=== PATIENT | male | born 1960 | race Caucasian/White ===

== ENCOUNTER → 2024-09-10 | Outpatient (CLI) | payer MEDICARE, MEDICAID, SELFPAY ==
[2024-09-10 12:29] LABS: Basophils % (Auto) 1 % (0-2.5); Eosinophils # (Auto) 0.3 Thou/mm3 (0.0-0.5); Eosinophils % (Auto) 14 % (0-10); Hematocrit 21.1 % (41.0-53.0); Immature Granulocytes % (Auto) 1 % (0-0); Immature Granulocytes Auto 0.02 Thou/mm3 (0.00-0.00); Lymphocytes # (Auto) 0.5 Thou/mm3 (1.0-4.8); Lymphocytes % (Auto) 23 % (10-50); Mean Corpuscular HGB Conc 31.3 g/dl (31.0-37.0); Mean Corpuscular Hemoglobin 30.8 pg (25.0-35.0); Mean Corpuscular Volume 99 fL (80-100); Monocytes # (Auto) 0.2 Thou/mm3 (0.0-0.8); Monocytes % (Auto) 11 % (0-12); Neutrophils % (Auto) 51 % (37-80); Nucleated Red Blood Cell % 0 /100 WBC (0); RDW Standard Deviation 82.3 fL (35.1-43.9); Red Blood Count 2.14 Miln/mm3 (4.50-5.90)
[2024-09-10 12:30] LABS: Hemoglobin 6.6 g/dL (13.5-16.0); Platelet Count 56 Thou/mm3 (140-440)
[2024-09-10 12:31] LABS: INR 1.5 (0.9-1.3); Prothrombin Time 15.7 Seconds (9.0-12.2)
[2024-09-10 12:45] LABS: Alanine Aminotransferase 25 U/L (10-49); Albumin, Serum 3.1 gm/dL (3.4-4.8); Albumin/Globulin Ratio 1.2 (1.2-2.2); Alkaline Phosphatase 82 U/L (46-116); Anion Gap 8 (7-16); Aspartate Amino Transferase 45 U/L (0-34); BUN/Creatinine Ratio 19 Ratio (12-20); Bilirubin,Total 3.2 mg/dL (0.3-1.2); Blood Urea Nitrogen 27 mg/dL (9-23); Calcium (Corrected) 9.7 mg/dL (8.5-10.1); Carbon Dioxide 26.1 mMol/L (20.0-31.0); Chloride 101 mMol/L (98-107); Creatinine (Component) 1.4 mg/dL (0.6-1.3); Globulin 2.5 gm/dL (2.3-3.5); Glucose 102 mg/dL (74-106); Osmolality,Calculated 275 (275-295); Potassium 3.7 mMol/L (3.4-5.1); Sodium 135 mMol/L (136-145); Total Protein 5.6 gm/dL (5.7-8.2); eGFR 56 See Note
[2024-09-10 13:02] LABS: Slide Review Platelets confirmed
== END | disposition home or self-care (01) ==
LOC: COPL 11:17
PROVIDERS: PCP Specialist; Referring Provider Specialist; Visit Provider Specialist
DX: Z01.89 Encounter for other specified special examinations (principal)
CPT/HCPCS: 36415; 80053; 85025; 85610

== ENCOUNTER 2024-09-24 10:00 | Emergency (ER) | payer MEDICARE, MEDICAID, SELFPAY ==
[2024-09-24] VITALS (53 sets, daily range): BP systolic 82–113; BP diastolic 32–72; PULSE 68–95; RESP 7–33; TEMP 36.6–36.7; O2SAT 85–100; BMI 24.7
--- NOTE | 2024-09-24 10:51 | PD.EDADULT ---
ED General RME/HPI General Chief complaint: Weakness Stated complaint: WEAKNESS Time Seen by Provider: 09/24/24 10:43 Arrival date/time: 09/24/24 10:00 RME / HPI RME / HPI narrative: This section includes all my notes and documentations, including HPI, PE, MDM, Procedure Notes, and PLAN. Manuel Dawn MD HPI: 63 year old male with history of AFib, ESLD, on transplant list at [facility], ascites, esophageal varices s/p banding, GIB, hyperlipidemia presents to the ED BIBA from home for multiple complaints. Reports last night while walking to his bedroom, he scraped his toes on the carpet and caused him to fall forward, hitting his head on the wall. Denied LOC. Patient additionally reported he has had black bowel movements since last night and has history of GI bleeds. Denies fevers, chills, sweats, chest pain, cough, shortness of breath, abdominal pain, n/v/d, or urinary symptoms. Denies use of blood thinners. No other complaints reported. ROS: Respiratory: negative except as documented in HPI. Gastrointestinal: negative except as documented in HPI. Genitourinary: negative except as documented in HPI. Musculoskeletal: negative except as documented in HPI. Skin: negative except as documented in HPI. Neurological: negative except as documented in HPI. Physical Exam: General: Alert and oriented. No acute distress. Eyes: Conjunctivae and lids clear. EOMI. PERRL. ENT: No nasal congestion. Pharynx normal. Tympanic membrane normal bilaterally. Neck: Supple. No lymphadenopathy. No JVD. Heart: RRR. Lungs: No respiratory distress. Good air movement. No rhonchi, wheezing, rales. Chest: No tenderness. Abdomen: Soft and nontender. Normal bowel sounds. No distension. No rebound or guarding. Rectal: Exam performed in presence of RN, stool is guaiac positve Back: No CVA tenderness. Legs: No clubbing, cyanosis, edema. Skin: Warm and dry. Neuro: Alert and oriented X 3. Cranial Nerves II-XII grossly intact. No peripheral motor deficits. Musculoskeletal: All major joints and bones are not tender with no limited ROM. I reviewed all diagnostic test results. At 6 PM on 09/24/2024, the care of the patient was transferred to Dr. Riley. Manuel Dawn MD Related Data Home Medications ?Medication ?Instructions ?Recorded ?Confirmed lactulose 20 gram/30 mL oral 30 g PO BID 06/13/24 08/28/24 solution pantoprazole 40 mg tablet,delayed 40 mg PO BID 06/13/24 08/28/24 release propranolol 10 mg tablet 10 mg PO TID 06/13/24 08/28/24 rifaximin 550 mg tablet (Xifaxan) 550 mg PO BID 06/13/24 08/28/24 Previous Rx's ?Medication ?Instructions ?Recorded bumetanide 1 mg tablet 2 mg (2 x 1 mg) PO BID 1 month 09/02/24 #120 tabs midodrine 5 mg tablet 10 mg (2 x 5 mg) PO TID 1 month 09/02/24 #180 tabs spironolactone 25 mg tablet 25 mg PO BID 1 month #240 tabs 09/02/24 Allergies Allergy/AdvReac Type Severity Reaction Status Date / Time aspirin Allergy Severe GI bleed Verified 09/24/24 11:32 Review of Systems Review of Systems Systems Reviewed: All systems reviewed, normal except as documented Past Medical History Past Medical History CARDIAC: Positive Cardiac Disorders, Atrial Fibrillation, Heart Murmur, Edema, Cellulitis and Hypertension GASTROINTESTINAL: Positive Gastrointestinal Disorders, Cirrhosis, Gastrointestinal Bleed, Esophageal Varices, Obstructive Bowel and Gastroesophageal Reflux Disease MUSCULOSKELETAL: Positive Fractures HEMATOLOGIC: Positive Blood Disorders and Anemia OTHER HISTORY: Positive Hospitalization, Falls, Blood Transfusions, Chicken Pox, Measles and Mumps Family History FAMILY HISTORY: Positive Family Cancer Surgical History SURGICAL: Negative Abdominal Surgery Social History SMOKING STATUS: Never smoker SECOND HAND EXPOSURE: No SUBSTANCE USE: does not use ED Exam Narrative Physical exam: As noted in HPI Course Course Course Narrative: 1554: I spoke with transfer nurse and aware of plan to transfer for TIPS procedure. 1800: Patient signed out to Dr. Riley pending transfer. Quality Measures none Orders Category Date Time Status Blood Sugar Check-Sandostatin Q1HR Care 09/24/24 21:03 Completed COVID-19 Screening Questionnaire NOW Care 09/24/24 13:31 Completed Decision to Admit X1 Care 09/24/24 13:31 Completed Transfuse,blood/blood products NOW Care 09/24/24 12:46 Completed Consult to Gastroenterology Stat Cons 09/24/24 13:27 Ordered Referral - Long Term Care Pharmacist Stat Cons 09/24/24 15:55 Active US liver Stat Exams 09/24/24 20:03 Completed Amylase Stat Lab 09/24/24 11:30 Completed CBC Stat Lab 09/24/24 11:30 Completed CMP [Comprehensive Metabolic Panel] Stat Lab 09/24/24 11:30 Completed Hemoglobin and Hematocrit Stat Lab 09/25/24 01:22 Completed Lipase Stat Lab 09/24/24 11:30 Completed Magnesium Stat Lab 09/24/24 11:30 Completed Occult Blood, Stool (LAB) Stat Lab 09/24/24 10:55 Completed PT [Prothrombin Time with INR] Stat Lab 09/24/24 11:30 Completed PTT [Partial Thromboplastin Time] Stat Lab 09/24/24 11:30 Completed Type and Screen Stat Lab 09/24/24 12:55 Completed prbc [Red Blood Cells] Stat Lab 09/24/24 12:55 Completed Morphine Inj Med 09/25/24 07:40 Discontinued 4 mg IVP X1 ONE Octreotide Acet Inj [SandoSTATIN Inj] Med 09/24/24 13:28 Discontinued 50 mcg IV X1 ONE Sodium Chloride 0.9% [Ns] 100 ml Med 09/24/24 20:15 Discontinued Octreotide Acet Inj [SandoSTATIN Inj] 1,000 mcg IV 50 mcg/hr Sodium Chloride 0.9% [Ns] 100 ml Med 09/25/24 16:15 Discontinued Octreotide Acet Inj [SandoSTATIN Inj] 1,000 mcg IV 50 mcg/hr Vital Signs Vital signs: Vital Signs Temperature 97.9 F 09/24/24 10:25 Pulse Rate 95 09/24/24 10:25 Respiratory Rate 11 L 09/24/24 10:25 Blood Pressure 85/49 L 09/24/24 10:25 Pulse Oximetry (%) 100 09/24/24 10:25 Oxygen Delivery Method Room Air 09/24/24 10:25 Pulse ox is 100% on room air which is adequate. [facility] Patient data External records reviewed:: [facility] previous records (I reviewed admission from 08/28/2024 through 09/03/2024 for anasarca and anemia ) and EMS form Clinical information provided by:: patient and EMS Social determinants that could affect healthcare access:: alcohol use (Former alcohol abuse) Patient has the following chronic illnesses:: AFib, ESLD, on transplant list at [facility], ascites, esophageal varices s/p banding, GIB, hyperlipidemia How is presenting disease/condition affected by chronic disease/condition?: exacerbated by Evaluation data The following diagnostics were reviewed and interpreted by me:: lab results Lab and/or radiology exams considered but not ordered:: None Interpretation Summary: H/H 4.0/13.0, history of chronic anemia Medications Medications considered but not ordered:: None Medication administrations:: Medication Administration History Discontinued Medications Octreotide Acetate 1,000 mcg/ (Sodium Chloride) 102 mls @ 5.1 mls/hr IV .Q20H LATRICE; Protocol Stop: 09/29/24 20:14 Octreotide Acetate 1,000 mcg/ (Sodium Chloride) 102 mls @ 5.1 mls/hr IV .Q20H ONE; Protocol Stop: 09/25/24 16:14 Last Admin: 09/24/24 20:50 Dose: 50 mcg/hr, 5.1 mls/hr Documented By: EE Morphine Sulfate (Morphine Sulf Inj 10 Mg/Ml Vial) 4 mg IVP X1 ONE Stop: 09/25/24 07:41 Last Admin: 09/25/24 07:46 Dose: 4 mg Documented By: RD Octreotide Acetate (Octreotide Acet Inj 50 Mcg/Ml Vial) 50 mcg IV X1 ONE Stop: 09/24/24 13:29 Last Admin: 09/24/24 15:26 Dose: 50 mcg Documented By: AA See above Consultations Consultation(s) initiated? (list below): Yes Consultation #1 (Physician, Specialty, Details): I spoke with GI Dr. Koch. Discussed patients PMHx, HPI, ED course, exam findings, labs results. He agrees to consult. Time: 13:25 Consultation #2 (Physician, Specialty, Details): I spoke with resident Dr. Chandler working with Dr. Dominguez. Discussed patients PMHx, HPI, ED course, exam findings, labs, and radiology results. States they have spoken to GI Dr. Koch again and he is recommending patient to be transferred for TIPS procedure. Time: 13:31 Diagnosis Differential Diagnosis ED Complaint MDM: Anemia, weakness, GI bleed Most likely diagnosis given after review of the tests above:: Severe anemia Acute GI bleed Admission Indicated Admission indicated?: not indicated Explain why admission is indicated or not indicated:: Requires txfer to TIPS procedure Admission Request Was there a request for admission?: No Disposition Plan Disposition Plan: other (specify) (Signed out to Dr. Riley pending txfer ) Medical Decision Making Differential Diagnosis Differential Diagnosis: Anemia, weakness, GI bleed Lab Data 09/25/24 01:22 09/24/24 11:30 Labs: Lab Results 09/24/24 09/24/24 09/24/24 Range/Units 10:55 11:30 12:55 WBC 2.3 L (3.8-10.6) Thou/mm3 RBC 1.40 L* (4.50-5.90) Miln/mm3 Hgb 4.0 L* (13.5-16.0) g/dL Hct 13.0 L* (41.0-53.0) % MCV 93 (80-100) fL MCH 28.6 (25.0-35.0) pg MCHC 30.8 L (31.0-37.0) g/dl RDW Std Deviation 70.0 H (35.1-43.9) fL Plt Count 54 L (140-440) Thou/mm3 Neut % (Auto) 64 (37-80) % Lymph % (Auto) 20 (10-50) % Irwin % (Auto) 11 (0-12) % Eos % (Auto) 4 (0-10) % Baso % (Auto) 0 (0-2.5) % Neut # (Auto) 1.5 L (1.8-7.7) Thou/mm3 Lymph # (Auto) 0.5 L (1.0-4.8) Thou/mm3 Irwin # (Auto) 0.3 (0.0-0.8) Thou/mm3 Eos # (Auto) 0.1 (0.0-0.5) Thou/mm3 Baso # (Auto) 0.0 (0.0-0.2) Thou/mm3 Immature Gran # (Auto) 0.03 H (0.00-0.00) Thou/mm3 Absolute Nucleated RBC 0.00 (0.00-0.00) Thou/mm3 Immature Gran % 1 H (0-0) % Nucleated RBC % 0 (0) /100 WBC PT 16.3 H (9.0-12.2) Seconds INR 1.5 H (0.9-1.3) APTT 33.2 (22.0-36.0) Seconds Sodium 125 L (136-145) mMol/L Potassium 3.6 (3.4-5.1) mMol/L Chloride 95 L (98-107) mMol/L Carbon Dioxide 23.8 (20.0-31.0) mMol/L Anion Gap 6 L (7-16) BUN 34 H (9-23) mg/dL Creatinine 1.5 H (0.6-1.3) mg/dL Estim Creat Clear Calc 50.7 L (>60) mL/min eGFR 51 L (60 - ) See Note BUN/Creatinine Ratio 23 H (12-20) Ratio Glucose 100 (74-106) mg/dL Calculated Osmolality 259 L (275-295) Calcium 8.1 L (8.3-10.6) mg/dL Corrected Calcium 9.5 (8.5-10.1) mg/dL Magnesium 2.0 (1.6-2.6) mg/dL Total Bilirubin 4.2 H (0.3-1.2) mg/dL AST 18 (0-34) U/L ALT 22 (10-49) U/L Alkaline Phosphatase 71 (46-116) U/L Total Protein 4.5 L (5.7-8.2) gm/dL Albumin 2.3 L (3.4-4.8) gm/dL Globulin 2.2 L (2.3-3.5) gm/dL Albumin/Globulin Ratio 1.0 L (1.2-2.2) Amylase 52 (30-118) U/L Lipase 40 (12-53) U/L Stool Occult Blood Positive A (Negative) Misc Test Result Platelets confirmed Blood Type AB Positive Antibody Screen NEGATIVE Crossmatch See Detail Blood Bank Wristband ID Yes 09/25/24 Range/Units 01:22 WBC (3.8-10.6) Thou/mm3 RBC (4.50-5.90) Miln/mm3 Hgb 7.9 L D (13.5-16.0) g/dL Hct 23.5 L D (41.0-53.0) % MCV (80-100) fL MCH (25.0-35.0) pg MCHC (31.0-37.0) g/dl RDW Std Deviation (35.1-43.9) fL Plt Count (140-440) Thou/mm3 Neut % (Auto) (37-80) % Lymph % (Auto) (10-50) % Irwin % (Auto) (0-12) % Eos % (Auto) (0-10) % Baso % (Auto) (0-2.5) % Neut # (Auto) (1.8-7.7) Thou/mm3 Lymph # (Auto) (1.0-4.8) Thou/mm3 Irwin # (Auto) (0.0-0.8) Thou/mm3 Eos # (Auto) (0.0-0.5) Thou/mm3 Baso # (Auto) (0.0-0.2) Thou/mm3 Immature Gran # (Auto) (0.00-0.00) Thou/mm3 Absolute Nucleated RBC (0.00-0.00) Thou/mm3 Immature Gran % (0-0) % Nucleated RBC % (0) /100 WBC PT (9.0-12.2) Seconds INR (0.9-1.3) APTT (22.0-36.0) Seconds Sodium (136-145) mMol/L Potassium (3.4-5.1) mMol/L Chloride (98-107) mMol/L Carbon Dioxide (20.0-31.0) mMol/L Anion Gap (7-16) BUN (9-23) mg/dL Creatinine (0.6-1.3) mg/dL Estim Creat Clear Calc (>60) mL/min eGFR (60 - ) See Note BUN/Creatinine Ratio (12-20) Ratio Glucose (74-106) mg/dL Calculated Osmolality (275-295) Calcium (8.3-10.6) mg/dL Corrected Calcium (8.5-10.1) mg/dL Magnesium (1.6-2.6) mg/dL Total Bilirubin (0.3-1.2) mg/dL AST (0-34) U/L ALT (10-49) U/L Alkaline Phosphatase (46-116) U/L Total Protein (5.7-8.2) gm/dL Albumin (3.4-4.8) gm/dL Globulin (2.3-3.5) gm/dL Albumin/Globulin Ratio (1.2-2.2) Amylase (30-118) U/L Lipase (12-53) U/L Stool Occult Blood (Negative) [facility] Test Result Blood Type Antibody Screen Crossmatch Blood Bank Wristband ID Discharge Plan Plan [facility] Being Transferred to: Other-Specify in comment Service Needed for Transfer: Gastroenterology Disposition Comment: [facility] Patient condition on transfer: Stable Prescriptions/Referrals Prescriptions/Med Rec: No Action midodrine 5 mg Tablet 10 mg PO TID 30 Days Qty: 180 0RF bumetanide 1 mg Tablet 2 mg PO BID 30 Days Qty: 120 0RF spironolactone 25 mg Tablet 25 mg PO BID 30 Days Qty: 240 0RF propranolol 10 mg Tablet 10 mg PO TID Hold Instructions: Resume on 09/16/24. Hold in the setting of low blood pressure, follow-up outpatient with PCP in 1 to 2 weeks after discharge before restarting the medication pantoprazole 40 mg Tablet,Delayed Release (Dr/Ec) 40 mg PO BID Xifaxan 550 mg Tablet 550 mg PO BID lactulose 20 gram/30 mL Solution 30 g PO BID Referrals: Arlette Koch MD [Primary Care Provider] - In 1 week Problem List Clinical Impression: Severe anemia, Acute GI bleeding Patient/Caregiver Discharge Instructions Print Language: Argentine Stand Alone Forms: Pam Award Info., Patient Portal Info Letter
--- NOTE | 2024-09-24 11:34 | PC.NURSE ---
RN SPOKE WITH JOSELO MCDONALD MOTHER AT [phone]. PER MOTHER, PATIENT HAD A FALL YESTERDAY AND HIT HEAD AND WAS TEMPORARILY DAZED, NEG LOC. PER MOTHER SHE BANDAGED ARMS FOR THE SKIN TEARS THAT OCCURRED DURING THE FALL. PER MOTHER, PATIENT DID NOT WANT TO BE TRANSPORTED TO ED LAST NIGHT, BUT THIS AM AGREED TO DUE TO FEELING WEAK AND HAVING INCREASING DARK STOOLS. PATIENT IS PALE, WARM TO TOUCH, A/O AND C/O WEAKNESS FOR AMBULATION. PATIENT FOLLOWS ALL COMMANDS. CALL LIGHT PLACED WITHIN REACH.
[2024-09-24 11:59] LABS: Basophils % (Auto) 0 % (0-2.5); Eosinophils # (Auto) 0.1 Thou/mm3 (0.0-0.5); Eosinophils % (Auto) 4 % (0-10); Immature Granulocytes % (Auto) 1 % (0-0); Immature Granulocytes Auto 0.03 Thou/mm3 (0.00-0.00); Lymphocytes # (Auto) 0.5 Thou/mm3 (1.0-4.8); Lymphocytes % (Auto) 20 % (10-50); Mean Corpuscular HGB Conc 30.8 g/dl (31.0-37.0); Mean Corpuscular Hemoglobin 28.6 pg (25.0-35.0); Mean Corpuscular Volume 93 fL (80-100); Monocytes # (Auto) 0.3 Thou/mm3 (0.0-0.8); Monocytes % (Auto) 11 % (0-12); Neutrophils # (Auto) 1.5 Thou/mm3 (1.8-7.7); Neutrophils % (Auto) 64 % (37-80); Nucleated Red Blood Cell % 0 /100 WBC (0)
[2024-09-24 12:01] LABS: OBS Card Lot # 23001; OBS Performed By ALMAA; OBS QC OK? Yes; Occult Blood, Stool Positive (Negative)
[2024-09-24 12:02] LABS: OBS Developer Lot # 23003
[2024-09-24 12:18] LABS: Alanine Aminotransferase 22 U/L (10-49); Albumin, Serum 2.3 gm/dL (3.4-4.8); Alkaline Phosphatase 71 U/L (46-116); Amylase 52 U/L (30-118); Anion Gap 6 (7-16); Aspartate Amino Transferase 18 U/L (0-34); BUN/Creatinine Ratio 23 Ratio (12-20); Bilirubin,Total 4.2 mg/dL (0.3-1.2); Blood Urea Nitrogen 34 mg/dL (9-23); Calcium 8.1 mg/dL (8.3-10.6); Calcium (Corrected) 9.5 mg/dL (8.5-10.1); Carbon Dioxide 23.8 mMol/L (20.0-31.0); Chloride 95 mMol/L (98-107); Creatinine (Component) 1.5 mg/dL (0.6-1.3); Estimated Creatinine Clearance 50.7 mL/min (>60); Globulin 2.2 gm/dL (2.3-3.5); Glucose 100 mg/dL (74-106); Lipase 40 U/L (12-53); Osmolality,Calculated 259 (275-295); Potassium 3.6 mMol/L (3.4-5.1); Sodium 125 mMol/L (136-145); Total Protein 4.5 gm/dL (5.7-8.2); eGFR 51 See Note
[2024-09-24 12:27] LABS: INR 1.5 (0.9-1.3); Partial Thromboplastin Time 33.2 Seconds (22.0-36.0); Prothrombin Time 16.3 Seconds (9.0-12.2)
[2024-09-24 12:35] LABS: Platelet Count 54 Thou/mm3 (140-440); White Blood Count 2.3 Thou/mm3 (3.8-10.6)
--- NOTE | 2024-09-24 14:38 | ESCONSULT_ITS ---
<Statement entered by Viktor Dominguez MD - 09/25/24 17:39> Attending attestation: I reviewed above note and agree with findings and plans. I have also personally examined the patient with medicine team and went over assessment and plan with medical team including international trade manager and resident physician. HPI Data of Consult Primary Care Provider: Arlette Koch MD Consult Narrative Reason for consult: GI Bleed History of present illness: Mr. Isaac is a 63-year-old male with past medical history significant for end- stage stage liver disease, liver cirrhosis with ascites s/p TIPS, esophageal varices status post banding, A-fib, hyperlipidemia and history of hepatic encephalopathy presents to the [facility] ED after several episodes of melena since yesterday. Patient states that he is been having loose clumpy dark-colored diarrhea that resembles blood clots. Patient states that he has had previous episodes of melena for which he has received frequent blood transfusions but this time it differs because it is clumpy. Patient denies shortness of breath, chest pain abdominal pain dizziness syncopal episodes nausea or vomiting. Primary medicine team was consulted for inpatient management, admitted after evaluation of the patient and speaking to GI specialist Dr. Koch, decision was made for the patient to be transferred for TIPS procedure. cc:: cc: Exam Vital Signs Temp Pulse Resp BP Pulse Ox O2 Del Method 97.9 F 82 16 88/32 L 100 Room Air 09/24/24 14:34 09/24/24 14:34 09/24/24 14:34 09/24/24 14:34 09/24/24 14:34 09/24/24 14:34 Results Labs 09/24/24 11:30 09/24/24 11:30 Labs: Short CBC 09/24/24 Range/Units 11:30 WBC 2.3 L (3.8-10.6) Thou/mm3 Hgb 4.0 L* (13.5-16.0) g/dL Hct 13.0 L* (41.0-53.0) % Plt Count 54 L (140-440) Thou/mm3 BMP 09/24/24 11:30 Sodium 125 L Potassium 3.6 Chloride 95 L Carbon Dioxide 23.8 BUN 34 H Creatinine 1.5 H Glucose 100 Calcium 8.1 L Liver Function 09/24/24 Range/Units 11:30 Total Bilirubin 4.2 H (0.3-1.2) mg/dL AST 18 (0-34) U/L ALT 22 (10-49) U/L Alkaline Phosphatase 71 (46-116) U/L Albumin 2.3 L (3.4-4.8) gm/dL Quality Measures Quality Measures none Advance care planning discussed with:: patient Medications Home Medications and Allergies Home Medications ?Medication ?Instructions ?Recorded ?Confirmed ?Type lactulose 20 gram/30 mL oral 30 g PO BID 06/13/24 08/28/24 History solution pantoprazole 40 mg tablet,delayed 40 mg PO BID 06/13/24 08/28/24 History release propranolol 10 mg tablet 10 mg PO TID 06/13/24 08/28/24 History rifaximin 550 mg tablet (Xifaxan) 550 mg PO BID 06/13/24 08/28/24 History Allergies Allergy/AdvReac Type Severity Reaction Status Date / Time aspirin Allergy Severe GI bleed Verified 09/24/24 11:32 Visit Medications Octreotide Acetate 1,000 mcg/ (Sodium Chloride) 102 mls @ 5.1 mls/hr IV .Q20H LATRICE; Protocol Stop: 10/25/24 09:44 Octreotide Acetate 1,000 mcg/ (Sodium Chloride) 102 mls @ 5.1 mls/hr IV .Q20H ONE; Protocol Stop: 09/25/24 09:44 Discontinued Medications Octreotide Acetate (Octreotide Acet Inj 50 Mcg/Ml Vial) 50 mcg IV X1 ONE Stop: 09/24/24 13:29 Assessment & Plan Plan Acute on chronic Anemia secondary to GI bleed- likely upper -Patient had several episodes of dark-colored clumpy diarrhea since yesterday -Hemoglobin 4.0, hematocrit 13, platelet 54 -Consulted GI specialist Dr. Koch-recommend patient to be transferred for TIPS procedure
[2024-09-24] MEDS: OCTREOTIDE ACET INJ 50 mCg/ML VIAL IV (15:26)
--- NOTE | 2024-09-24 15:44 | PC.CC ---
Patient is a 63 year-old male that presents to the hospital for weakness. Natividad RUGGIERO made face to face contact with patient. ASW introduced self, role, and reason for visit. Patient appears to be alert and oriented to self, location, and situation. Patient was pleasant and engaged in assessment. Patient confirmed information and reports he lives at home with his parents. Patient reports they are each others support system. Per patient, prior to this admission patient was able to ambulate independently and complete ADLs. Patient stated he does not use any DME currently but has a walker and cane at home should he need it upon discharge. Patient receives primary care with Dr. Koch and Jonny bills [place] for prescription medication. Upon discharge patient plans to return back home with his parents. career placement services counselor to remain available for any discharge needs.
[2024-09-24 17:12] LABS: Slide Review Platelets confirmed
--- NOTE | 2024-09-24 18:06 | PC.CM ---
Addendum entered by Kourtney Sanchez RN 09/24/24 18:30: I spoke to [facility] and I initiated transfer. they asked if transfer reqeust was an EMTALA request meaning life or limb and Dr. Riley stated yes it was. I faxed over information and I provided the phone number to the ED. Original Note: 1600 I received a referral to transfer patient for TIPS procedure. Patient has been evaluated at [facility] for liver transplant. I will contact [facility] to initiate a transfer for TIPS.
--- NOTE | 2024-09-24 20:03 | XR_ITS ---
Examination: Abdomen sonogram, Limited Date and time of exam: September 24, 2024 2110 hrs. Indications: Right upper abdominal pain today, history tips stent placement Technique: Real-time headley scale transabdominal sonographic images of the upper abdomen obtained. Findings: Cholelithiasis, gallbladder wall 0.5 cm no edema TIPS stent is poorly visualized Common bile duct is enlarged 0.9 cm no stones Pancreas obscured by bowel gas Liver 11.6 cm no focal liver lesions Normal hepatopedal portal venous flow Patent IVC Impression: The entire study is severely limited by bowel gas There is no diagnostic visualization of the TIPS stent
--- NOTE | 2024-09-24 20:04 | PD.EDADDENDU ---
Emergency Room Addendum Addendum Narrative: [address] Riley's note: This patient is laying down comfortably and receiving his second unit of blood. Patient has no specific complaints of any pain or nausea vomiting. He says that he has been passing melena for 5 times since 24 hours ago. He never saw any bright red blood in the stools nor he vomited any blood. He denies any abdominal pain per se except for his usual discomfort. He says that he tripped and fell but he denies any loss of consciousness, any head injury or headache or neck pain. His hemoglobin was 4.[address] Dawn, the previous dayshift provider, ordered 2 units of blood. I added 1 more to be transfused right now. I had a long conversation with Dr. Caro, interventional radiologist at [facility] who recommended that we get a liver ultrasound to check for patency of his TIPS, which was introduced 1 year ago at [facility]. He also calculated that patient's MELD is 21 at the present time therefore it would be more harmful than helpful to do any procedure right now. Then I discussed the case with Dr. Chun, our radiologist, and he is going to instruct the ultrasound lady to specifically look for the tips and to look for patency. According to the results, I will communicate back with Dr. Caro and see if the patient needs to be transferred or stays here. At 10:50 PM, the liver ultrasound with attention to the TIPS has been done and the main hepatic artery the flow is 73, the proximal aspect is 56, mid is 52 and distal is 42; I called Dr. Caro again at [phone] and he advised that there is a stenosis of the tips stent and that the patient needs to be transferred to [facility]. We will start with the transfer process in 20 to 30 minutes.
[2024-09-24] MEDS: OCTREOTIDE ACET INJ 1,000 MCG in SODIUM CHLORIDE 0.9% 100 ML 5.1 MCG IV (20:50)
[2024-09-25] VITALS (14 sets, daily range): BP systolic 99–115; BP diastolic 44–61; PULSE 65–82; RESP 13–17; TEMP 36.4–36.6; O2SAT 97–100
[2024-09-25 01:29] LABS: Hematocrit 23.5 % (41.0-53.0); Hemoglobin 7.9 g/dL (13.5-16.0)
--- NOTE | 2024-09-25 04:00 | PC.NURSE ---
0305 PT ACCEPTED TO [facility] BY DR CUEVAS PT TO ARRIVE AFTER 8 AM. #[id number] REPORT [phone] [facility] [address] ETA CALL [phone].
--- NOTE | 2024-09-25 04:29 | PC.NURSE ---
0429, BLUNGER LOADER CHENTE CONTACTED JUNIOR FROM [facility], PT CAN BE THERE ANYTIME AFTER 8
--- NOTE | 2024-09-25 07:26 | PC.NURSE ---
Received report and assumed care of patient. Patient sleeping in bed with no signs of distress. Awaiting transport to [facility].
--- NOTE | 2024-09-25 07:33 | PC.NURSE ---
Informed ER physician of patient pain 06/14. Received verbal order for 4mg Morphine IV.
[2024-09-25] MEDS: MORPHINE SULF INJ 10 MG/ML VIAL 4 MG IVP (07:46)
--- NOTE | 2024-09-25 07:55 | PC.CM ---
0753 called [facility] and confirmed unit is on their way to picker operator the pt. 0752 spoke to charge nurse pt has been accepted at [facility]. I confirmed with charge nurse, no needs at this time.
--- NOTE | 2024-09-25 07:55 | PC.CM ---
0753 called [facility] and confirmed unit is on their way to mixing picker tender the pt. 0752 spoke to charge nurse pt has been accepted at [facility]. I confirmed with charge nurse, no needs at this time.
--- NOTE | 2024-09-25 08:26 | PC.NURSE ---
Report given to Raj SHEIKH at [facility] and call given as well for departure time.
== END 2024-09-25 08:27 | disposition short-term general hospital (02) ==
PROVIDERS: Emergency Medicine; Emergency Provider Emergency Medicine; PCP Specialist
DX: D62 Acute posthemorrhagic anemia (principal); R10.11 Right upper quadrant pain
CPT/HCPCS: 36415; 36430; 76705; 80053; 82150; 82270; 83690; 83735; 85014; 85018; 85025; 85610; 85730; 86850; 86900; 86901; 86923; 96374; 99285; J2270; J2354; J7050; P9016

== ENCOUNTER → 2024-10-15 | Outpatient (CLI) | payer MEDICARE, MEDICAID, SELFPAY ==
[2024-10-15 11:36] LABS: Basophils % (Auto) 1 % (0-2.5); Eosinophils # (Auto) 0.3 Thou/mm3 (0.0-0.5); Eosinophils % (Auto) 16 % (0-10); Hematocrit 26.4 % (41.0-53.0); Immature Granulocytes % (Auto) 1 % (0-0); Immature Granulocytes Auto 0.01 Thou/mm3 (0.00-0.00); Lymphocytes # (Auto) 0.4 Thou/mm3 (1.0-4.8); Lymphocytes % (Auto) 21 % (10-50); Mean Corpuscular HGB Conc 32.6 g/dl (31.0-37.0); Mean Corpuscular Hemoglobin 33.2 pg (25.0-35.0); Mean Corpuscular Volume 102 fL (80-100); Monocytes # (Auto) 0.2 Thou/mm3 (0.0-0.8); Monocytes % (Auto) 8 % (0-12); Neutrophils # (Auto) 1.1 Thou/mm3 (1.8-7.7); Neutrophils % (Auto) 54 % (37-80); Nucleated Red Blood Cell % 0 /100 WBC (0); RDW Standard Deviation 80.3 fL (35.1-43.9); Red Blood Count 2.59 Miln/mm3 (4.50-5.90)
[2024-10-15 11:45] LABS: INR 1.4 (0.9-1.3); Prothrombin Time 15.4 Seconds (9.0-12.2)
[2024-10-15 12:01] LABS: Alanine Aminotransferase 24 U/L (10-49); Albumin, Serum 2.6 gm/dL (3.4-4.8); Alkaline Phosphatase 89 U/L (46-116); Anion Gap 7 (7-16); Aspartate Amino Transferase 33 U/L (0-34); BUN/Creatinine Ratio 11 Ratio (12-20); Bilirubin,Total 3.6 mg/dL (0.3-1.2); Blood Urea Nitrogen 18 mg/dL (9-23); Calcium 8.4 mg/dL (8.3-10.6); Calcium (Corrected) 9.5 mg/dL (8.5-10.1); Carbon Dioxide 26.8 mMol/L (20.0-31.0); Chloride 102 mMol/L (98-107); Creatinine (Component) 1.6 mg/dL (0.6-1.3); Globulin 2.6 gm/dL (2.3-3.5); Glucose 102 mg/dL (74-106); Osmolality,Calculated 273 (275-295); Potassium 3.4 mMol/L (3.4-5.1); Sodium 136 mMol/L (136-145); Total Protein 5.2 gm/dL (5.7-8.2); eGFR 48 See Note
[2024-10-15 12:24] LABS: Hemoglobin 8.6 g/dL (13.5-16.0); Platelet Count 61 Thou/mm3 (140-440)
[2024-10-15 12:25] LABS: White Blood Count 2.1 Thou/mm3 (3.8-10.6)
[2024-10-15 12:26] LABS: Slide Review Platelets confirmed
== END | disposition home or self-care (01) ==
PROVIDERS: PCP Specialist; Referring Provider Specialist; Visit Provider Specialist
DX: Z01.89 Encounter for other specified special examinations (principal)
CPT/HCPCS: 36415; 80053; 85025; 85610

== ENCOUNTER → 2024-10-22 | Outpatient (CLI) | payer MEDICARE, MEDICAID, SELFPAY ==
[2024-10-22 13:54] LABS: Basophils % (Auto) 2 % (0-2.5); Eosinophils # (Auto) 0.4 Thou/mm3 (0.0-0.5); Eosinophils % (Auto) 20 % (0-10); Hematocrit 26.1 % (41.0-53.0); Immature Granulocytes % (Auto) 1 % (0-0); Immature Granulocytes Auto 0.01 Thou/mm3 (0.00-0.00); Lymphocytes # (Auto) 0.6 Thou/mm3 (1.0-4.8); Lymphocytes % (Auto) 29 % (10-50); Mean Corpuscular HGB Conc 33.3 g/dl (31.0-37.0); Mean Corpuscular Hemoglobin 33.7 pg (25.0-35.0); Mean Corpuscular Volume 101 fL (80-100); Monocytes # (Auto) 0.2 Thou/mm3 (0.0-0.8); Monocytes % (Auto) 10 % (0-12); Neutrophils # (Auto) 0.8 Thou/mm3 (1.8-7.7); Neutrophils % (Auto) 39 % (37-80); Nucleated Red Blood Cell % 0 /100 WBC (0); RDW Standard Deviation 69.4 fL (35.1-43.9); Red Blood Count 2.58 Miln/mm3 (4.50-5.90)
[2024-10-22 13:58] LABS: Hemoglobin 8.7 g/dL (13.5-16.0); Platelet Count 67 Thou/mm3 (140-440)
[2024-10-22 14:20] LABS: Alanine Aminotransferase 25 U/L (10-49); Albumin, Serum 2.8 gm/dL (3.4-4.8); Alkaline Phosphatase 87 U/L (46-116); Anion Gap 8 (7-16); Aspartate Amino Transferase 35 U/L (0-34); BUN/Creatinine Ratio 13 Ratio (12-20); Bilirubin,Total 3.4 mg/dL (0.3-1.2); Blood Urea Nitrogen 18 mg/dL (9-23); Calcium 8.4 mg/dL (8.3-10.6); Calcium (Corrected) 9.4 mg/dL (8.5-10.1); Carbon Dioxide 26.2 mMol/L (20.0-31.0); Chloride 101 mMol/L (98-107); Creatinine (Component) 1.4 mg/dL (0.6-1.3); Globulin 2.8 gm/dL (2.3-3.5); Glucose 108 mg/dL (74-106); Osmolality,Calculated 273 (275-295); Potassium 3.4 mMol/L (3.4-5.1); Sodium 135 mMol/L (136-145); Total Protein 5.6 gm/dL (5.7-8.2); eGFR 56 See Note
[2024-10-22 15:39] LABS: Slide Review Platelets confirmed
== END | disposition home or self-care (01) ==
LOC: COPL 12:27
PROVIDERS: PCP Specialist; Referring Provider Specialist; Visit Provider Specialist
DX: K76.6 Portal hypertension (principal); K74.60 Unspecified cirrhosis of liver; K20.90 Esophagitis, unspecified without bleeding
CPT/HCPCS: 36415; 80053; 85025

== ENCOUNTER → 2024-11-04 | Outpatient (CLI) | payer MEDICARE, MEDICAID, SELFPAY ==
[2024-11-04 12:32] LABS: Basophils % (Auto) 2 % (0-2.5); Eosinophils # (Auto) 0.4 Thou/mm3 (0.0-0.5); Eosinophils % (Auto) 18 % (0-10); Hematocrit 28.2 % (41.0-53.0); Hemoglobin 9.3 g/dL (13.5-16.0); Immature Granulocytes % (Auto) 0 % (0-0); Immature Granulocytes Auto 0.01 Thou/mm3 (0.00-0.00); Lymphocytes # (Auto) 0.7 Thou/mm3 (1.0-4.8); Lymphocytes % (Auto) 29 % (10-50); Mean Corpuscular Hemoglobin 33.7 pg (25.0-35.0); Mean Corpuscular Volume 102 fL (80-100); Monocytes # (Auto) 0.4 Thou/mm3 (0.0-0.8); Monocytes % (Auto) 15 % (0-12); Neutrophils # (Auto) 0.8 Thou/mm3 (1.8-7.7); Neutrophils % (Auto) 35 % (37-80); Nucleated Red Blood Cell % 0 /100 WBC (0); RDW Standard Deviation 62.4 fL (35.1-43.9); Red Blood Count 2.76 Miln/mm3 (4.50-5.90)
[2024-11-04 12:44] LABS: Alanine Aminotransferase 25 U/L (10-49); Albumin, Serum 2.9 gm/dL (3.4-4.8); Albumin/Globulin Ratio 0.9 (1.2-2.2); Alkaline Phosphatase 95 U/L (46-116); Anion Gap 9 (7-16); Aspartate Amino Transferase 35 U/L (0-34); BUN/Creatinine Ratio 14 Ratio (12-20); Bilirubin,Total 2.9 mg/dL (0.3-1.2); Blood Urea Nitrogen 23 mg/dL (9-23); Calcium 8.7 mg/dL (8.3-10.6); Calcium (Corrected) 9.6 mg/dL (8.5-10.1); Carbon Dioxide 25.3 mMol/L (20.0-31.0); Chloride 103 mMol/L (98-107); Creatinine (Component) 1.6 mg/dL (0.6-1.3); Globulin 3.2 gm/dL (2.3-3.5); Glucose 88 mg/dL (74-106); Osmolality,Calculated 276 (275-295); Potassium 3.6 mMol/L (3.4-5.1); Sodium 137 mMol/L (136-145); Total Protein 6.1 gm/dL (5.7-8.2); eGFR 48 See Note
[2024-11-04 12:45] LABS: Platelet Count 52 Thou/mm3 (140-440); White Blood Count 2.4 Thou/mm3 (3.8-10.6)
[2024-11-04 12:47] LABS: Slide Review Platelets confirmed
== END | disposition home or self-care (01) ==
LOC: COPL 11:03
PROVIDERS: PCP Specialist; Referring Provider Specialist; Visit Provider Specialist
DX: K76.6 Portal hypertension (principal); K74.60 Unspecified cirrhosis of liver; K20.90 Esophagitis, unspecified without bleeding
CPT/HCPCS: 36415; 80053; 85025

== ENCOUNTER → 2024-11-19 | Outpatient (CLI) | payer MEDICARE, MEDICAID, SELFPAY ==
[2024-11-19 13:40] LABS: Basophils % (Auto) 1 % (0-2.5); Eosinophils # (Auto) 0.6 Thou/mm3 (0.0-0.5); Eosinophils % (Auto) 23 % (0-10); Hematocrit 22.4 % (41.0-53.0); Immature Granulocytes % (Auto) 1 % (0-0); Immature Granulocytes Auto 0.03 Thou/mm3 (0.00-0.00); Lymphocytes # (Auto) 0.5 Thou/mm3 (1.0-4.8); Lymphocytes % (Auto) 19 % (10-50); Mean Corpuscular HGB Conc 33.5 g/dl (31.0-37.0); Mean Corpuscular Hemoglobin 33.5 pg (25.0-35.0); Mean Corpuscular Volume 100 fL (80-100); Monocytes # (Auto) 0.3 Thou/mm3 (0.0-0.8); Monocytes % (Auto) 11 % (0-12); Neutrophils # (Auto) 1.2 Thou/mm3 (1.8-7.7); Neutrophils % (Auto) 46 % (37-80); Nucleated Red Blood Cell % 0 /100 WBC (0); RDW Standard Deviation 56.1 fL (35.1-43.9); Red Blood Count 2.24 Miln/mm3 (4.50-5.90)
[2024-11-19 13:43] LABS: White Blood Count 2.7 Thou/mm3 (3.8-10.6)
[2024-11-19 13:44] LABS: Hemoglobin 7.5 g/dL (13.5-16.0); Platelet Count 53 Thou/mm3 (140-440)
[2024-11-19 14:04] LABS: Alanine Aminotransferase 21 U/L (10-49); Albumin, Serum 2.8 gm/dL (3.4-4.8); Alkaline Phosphatase 96 U/L (46-116); Anion Gap 8 (7-16); Aspartate Amino Transferase 31 U/L (0-34); BUN/Creatinine Ratio 16 Ratio (12-20); Bilirubin,Total 3.4 mg/dL (0.3-1.2); Blood Urea Nitrogen 23 mg/dL (9-23); Calcium 8.2 mg/dL (8.3-10.6); Calcium (Corrected) 9.2 mg/dL (8.5-10.1); Carbon Dioxide 25.7 mMol/L (20.0-31.0); Chloride 102 mMol/L (98-107); Creatinine (Component) 1.4 mg/dL (0.6-1.3); Globulin 2.9 gm/dL (2.3-3.5); Glucose 91 mg/dL (74-106); Osmolality,Calculated 275 (275-295); Potassium 3.8 mMol/L (3.4-5.1); Sodium 136 mMol/L (136-145); Total Protein 5.7 gm/dL (5.7-8.2); eGFR 56 See Note
[2024-11-19 15:37] LABS: Slide Review Platelets confirmed
== END | disposition home or self-care (01) ==
LOC: COPL 12:11
PROVIDERS: PCP Specialist; Referring Provider Specialist; Visit Provider Specialist
DX: K76.6 Portal hypertension (principal); K74.60 Unspecified cirrhosis of liver; K20.90 Esophagitis, unspecified without bleeding
CPT/HCPCS: 36415; 80053; 85025

== ENCOUNTER → 2024-11-26 | Outpatient (CLI) | payer MEDICARE, MEDICAID, SELFPAY ==
[2024-11-26 11:30] LABS: Basophils % (Auto) 1 % (0-2.5); Eosinophils # (Auto) 0.4 Thou/mm3 (0.0-0.5); Eosinophils % (Auto) 20 % (0-10); Immature Granulocytes % (Auto) 1 % (0-0); Immature Granulocytes Auto 0.01 Thou/mm3 (0.00-0.00); Lymphocytes # (Auto) 0.4 Thou/mm3 (1.0-4.8); Lymphocytes % (Auto) 20 % (10-50); Mean Corpuscular HGB Conc 31.7 g/dl (31.0-37.0); Mean Corpuscular Hemoglobin 32.4 pg (25.0-35.0); Mean Corpuscular Volume 102 fL (80-100); Monocytes # (Auto) 0.3 Thou/mm3 (0.0-0.8); Monocytes % (Auto) 13 % (0-12); Neutrophils # (Auto) 0.9 Thou/mm3 (1.8-7.7); Neutrophils % (Auto) 45 % (37-80); Nucleated Red Blood Cell % 0 /100 WBC (0); RDW Standard Deviation 55.6 fL (35.1-43.9); Red Blood Count 2.04 Miln/mm3 (4.50-5.90)
[2024-11-26 12:05] LABS: Alanine Aminotransferase 18 U/L (10-49); Albumin, Serum 2.5 gm/dL (3.4-4.8); Albumin/Globulin Ratio 0.9 (1.2-2.2); Alkaline Phosphatase 108 U/L (46-116); Anion Gap 8 (7-16); Aspartate Amino Transferase 29 U/L (0-34); BUN/Creatinine Ratio 13 Ratio (12-20); Bilirubin,Total 2.8 mg/dL (0.3-1.2); Blood Urea Nitrogen 21 mg/dL (9-23); Calcium 8.1 mg/dL (8.3-10.6); Calcium (Corrected) 9.3 mg/dL (8.5-10.1); Carbon Dioxide 24.3 mMol/L (20.0-31.0); Chloride 102 mMol/L (98-107); Creatinine (Component) 1.6 mg/dL (0.6-1.3); Globulin 2.9 gm/dL (2.3-3.5); Glucose 130 mg/dL (74-106); Osmolality,Calculated 273 (275-295); Potassium 3.3 mMol/L (3.4-5.1); Sodium 134 mMol/L (136-145); Total Protein 5.4 gm/dL (5.7-8.2); eGFR 48 See Note
[2024-11-26 12:24] LABS: White Blood Count 2.1 Thou/mm3 (3.8-10.6)
[2024-11-26 15:17] LABS: Hematocrit 20.8 % (41.0-53.0); Hemoglobin 6.6 g/dL (13.5-16.0)
[2024-11-26 15:18] LABS: Platelet Count 52 Thou/mm3 (140-440)
[2024-11-26 16:17] LABS: Slide Review Platelets confirmed
== END | disposition home or self-care (01) ==
LOC: COPL 09:53
PROVIDERS: PCP Specialist; Referring Provider Specialist; Visit Provider Specialist
DX: K76.6 Portal hypertension (principal); K74.60 Unspecified cirrhosis of liver; K20.90 Esophagitis, unspecified without bleeding
CPT/HCPCS: 36415; 80053; 85025

== ENCOUNTER 2024-11-27 08:16 | Emergency (ER) | payer MEDICARE, MEDICAID, SELFPAY ==
[2024-11-27 08:22] VITALS: BP 113/57; PULSE 65; RESP 19; TEMP 36.6; O2SAT 100; BMI 27.6
[2024-11-27 08:53] LABS: Basophils % (Auto) 1 % (0-2.5); Eosinophils # (Auto) 0.8 Thou/mm3 (0.0-0.5); Eosinophils % (Auto) 28 % (0-10); Hematocrit 22.9 % (41.0-53.0); Immature Granulocytes % (Auto) 1 % (0-0); Immature Granulocytes Auto 0.02 Thou/mm3 (0.00-0.00); Lymphocytes # (Auto) 0.5 Thou/mm3 (1.0-4.8); Lymphocytes % (Auto) 17 % (10-50); Mean Corpuscular HGB Conc 32.3 g/dl (31.0-37.0); Mean Corpuscular Volume 99 fL (80-100); Monocytes # (Auto) 0.3 Thou/mm3 (0.0-0.8); Monocytes % (Auto) 12 % (0-12); Neutrophils # (Auto) 1.2 Thou/mm3 (1.8-7.7); Neutrophils % (Auto) 42 % (37-80); Nucleated Red Blood Cell % 0 /100 WBC (0); RDW Standard Deviation 54.2 fL (35.1-43.9); Red Blood Count 2.31 Miln/mm3 (4.50-5.90)
--- NOTE | 2024-11-27 08:53 | PD.EDRME ---
Rapid Medical Screening Exam RME Arrival date/time: 11/27/24 08:16 63-year-old male presents to the emergency department today requesting blood transfusion patient was seen by Dr. Koch his GI specialist Chief Complaint: Weakness Time Seen by Provider: 11/27/24 08:31 Vital signs: Vital Signs Temperature 97.8 F 11/27/24 08:22 Pulse Rate 65 11/27/24 08:22 Respiratory Rate 19 11/27/24 08:22 Blood Pressure 113/57 L 11/27/24 08:22 Pulse Oximetry (%) 100 11/27/24 08:22 Oxygen Delivery Method Room Air 11/27/24 08:22
[2024-11-27 09:15] LABS: Hemoglobin 7.4 g/dL (13.5-16.0); White Blood Count 2.9 Thou/mm3 (3.8-10.6)
[2024-11-27 09:16] LABS: Platelet Count 73 Thou/mm3 (140-440); Slide Review Platelets confirmed
--- NOTE | 2024-11-27 14:32 | EDNOTE_ITS ---
ED Recheck Abnl Lab Rx-RME/HPI General Chief Complaint: Weakness Stated Complaint: HGB 6.1; SENT BY [facility]ION Time Seen by Provider: 11/27/24 08:31 Arrival date/time: 11/27/24 08:16 RME / ADAM RME / HPI narrative: 11/27/24 08:16 63-year-old male presents to the emergency department today requesting blood transfusion patient was seen by Dr. Koch his GI specialist DR. RODGERS MAIN ED EVALUATION 63 year old male with history of AFib, ESLD, ascites, esophageal varices s/p banding, GIB, anemia requiring blood transfusions, hyperlipidemia presents to the ED sent by GI Dr. Koch for further treatment of low hemoglobin levels. Patient states he had a routine follow up visit with GI Dr. Koch yesterday and had labs performed showing a hemoglobin of 6.1. Reportedly was advised to come today for a blood transfusion. While in the ED patient is asymptomatic and has no complaints. States he drove himself to the hospital. Denies any weakness, shortness of breath, or blood in stool at this time. Related Data Home Medications ?Medication ?Instructions ?Recorded ?Confirmed lactulose 20 gram/30 mL oral 30 g PO BID 06/13/24 08/28/24 solution pantoprazole 40 mg tablet,delayed 40 mg PO BID 06/13/24 08/28/24 release propranolol 10 mg tablet 10 mg PO TID 06/13/24 08/28/24 rifaximin 550 mg tablet (Xifaxan) 550 mg PO BID 06/13/24 08/28/24 Previous Rx's ?Medication ?Instructions ?Recorded bumetanide 1 mg tablet 2 mg (2 x 1 mg) PO BID 1 month 09/02/24 #120 tabs spironolactone 25 mg tablet 25 mg PO BID 1 month #240 tabs 09/02/24 Allergies Allergy/AdvReac Type Severity Reaction Status Date / Time aspirin Allergy Severe GI bleed Verified 11/27/24 08:17 Review of Systems Review of Systems Narrative Review of Systems: Gen: No fever, no chills, no weight loss EYES: No discharge, no visual changes, no pain HEENT: No ear pain, no congestion, no sore throat PULM: no shortness of breath, no cough, no congestion CV: No chest pain, no dyspnea on exertion, no palpitations, no chest tightness GI: No nausea, no vomiting, no diarrhea, no pain, no constipation : No frequency, no urgency,? no dysuria Musc/skel: No joint pain, no back pain Skin: No rash, no ecchymosis, no lesions Psyc: No hallucinations, no depression Heme/Lymph: +low hgb per patient. Hx of GIB and anemia Neuro: No weakness, no headache Past Medical History Past Medical History CARDIAC: Positive Cardiac Disorders, Atrial Fibrillation, Heart Murmur, Edema, Cellulitis and Hypertension GASTROINTESTINAL: Positive Gastrointestinal Disorders, Cirrhosis, Gastrointestinal Bleed, Esophageal Varices, Obstructive Bowel and Gastroesophageal Reflux Disease MUSCULOSKELETAL: Positive Fractures HEMATOLOGIC: Positive Blood Disorders and Anemia OTHER HISTORY: Positive Hospitalization, Falls, Blood Transfusions, Chicken Pox, Measles and Mumps Family History FAMILY HISTORY: Positive Family Cancer Surgical History SURGICAL: Negative Abdominal Surgery Social History SMOKING STATUS: Never smoker SECOND HAND EXPOSURE: No SUBSTANCE USE: does not use ED Exam Narrative Physical exam: GENERAL APPEARANCE: AxOx4, no obvious distress, nontoxic appearing. Mild pallor. HEENT: NC, AT. MMM. EOMI, clear conjunctiva, oropharynx clear. NECK: Supple without lymphadenopathy. No stiffness or restricted ROM. HEART: Normal rate and regular rhythm, normal S1/S1, no m/r/g LUNGS: CTAB, moving air well. No crackles or wheezes are heard. ABDOMEN: Soft, nontender, nondistended with good bowel sounds heard. BACK: No midline C/T/L spine pain or deformity, No CVAT, no obvious deformity. EXTREMITIES: Without cyanosis, clubbing or edema. MUSCULOSKELETAL: FROM of all major joints, no chest tenderness NEUROLOGICAL: Grossly nonfocal. Alert and oriented, moving all 4 extremities. CN not formally tested but appear grossly intact. Observed to ambulate with normal gait. Skin: Warm and dry without any rash. Mild pallor. Course Quality Measures none Orders Category Date Time Status Insert IV NOW Care 11/27/24 08:52 Active Transfuse,blood/blood products NOW Care 11/27/24 08:30 Active CBC Stat Lab 11/27/24 08:36 Completed Type and Screen Stat Lab 11/27/24 08:36 Results prbc [Red Blood Cells] Stat Lab 11/27/24 08:36 Results Reevaluation(s) Reevaluation #1: Patient remains clinically stable throughout the emergency department visit. We reviewed all the results, analysis, and treatment plans. Patient is amenable to discharge. Strict return precautions were outlined. Patient was discharged in stable condition. Time: 14:35 Vital Signs Vital signs: Vital Signs Temperature 97.8 F 11/27/24 08:22 Pulse Rate 65 11/27/24 08:22 Respiratory Rate 19 11/27/24 08:22 Blood Pressure 113/57 L 11/27/24 08:22 Pulse Oximetry (%) 100 11/27/24 08:22 Oxygen Delivery Method Room Air 11/27/24 08:22 Pulse ox is 100% on room air which is adequate. Recheck / Abnormal Lab / Rx MDM Narrative MDM Narrative:: Vicky Valenzuela am scribing for and in the presence of Dr. Rodgers. Patient data External records reviewed:: [facility] previous records (I reviewed ED visit on 09/24/2024. I reviewed outpatient labs performed yesterday, hgb at that time 6.6) Clinical information provided by:: patient Social determinants that could affect healthcare access:: none Patient has the following chronic illnesses:: AFib, ESLD, ascites, esophageal varices s/p banding, s/p TIPS procedure, GIB, anemia requiring blood transfusions, hyperlipidemia How is presenting disease/condition affected by chronic disease/condition?: exacerbated by Evaluation data The following diagnostics were reviewed and interpreted by me:: lab results Lab and/or radiology exams considered but not ordered:: None Interpretation Summary: See above Medications / Prescriptions Medications or Prescriptions considered but not ordered:: None Medication administrations:: None Consultations Consultation(s) initiated? (list below): No Diagnosis Recheck Differential Diagnosis: other (Anemia, GIB, esophageal varices ) Most likely diagnosis given after review of the tests above:: Chronic anemia Cirrhosis Admission Indicated Admission indicated?: not indicated Admission Request Was there a request for admission?: No Disposition Plan Disposition Plan: Discharge Discharge Attestation Discharge Attestation: The patient and all family members were given an opportunity to ask questions and understood the discharge instructions. Discharge instructions specifically effects, indications for sooner follow up or return to the emergency department, and the expected course of current diagnosis. Patient condition: Stable Discharge Plan Plan Patient Disposition: HOME (Self Care) Prescriptions/Referrals Prescriptions/Med Rec: No Action bumetanide 1 mg Tablet 2 mg PO BID 30 Days Qty: 120 0RF spironolactone 25 mg Tablet 25 mg PO BID 30 Days Qty: 240 0RF propranolol 10 mg Tablet 10 mg PO TID Hold Instructions: Resume on 09/16/24. Hold in the setting of low blood pressure, follow-up outpatient with PCP in 1 to 2 weeks after discharge before restarting the medication pantoprazole 40 mg Tablet,Delayed Release (Dr/Ec) 40 mg PO BID Xifaxan 550 mg Tablet 550 mg PO BID lactulose 20 gram/30 mL Solution 30 g PO BID Referrals: Arlette Koch MD [Primary Care Provider] - In 1 week Problem List Clinical Impression: Chronic anemia, Cirrhosis Patient/Caregiver Discharge Instructions Education Materials: ED Anemia Type Not Specified, ED Cirrhosis Additional Instructions: Follow-up with your primary care doctor they can also consider outpatient referral for outpatient transfusions. Today you do not meet criteria for emergency transfusion. Feel free return to the emergency department sooner if you notice any bleeding, symptoms, or any issues. Print Language: Indonesian Stand Alone Forms: Pam Award Info., Patient Portal Info Letter
== END 2024-11-27 15:16 | disposition home or self-care (01) ==
PROVIDERS: Nurse Practitioner Primary Care; Emergency Provider Emergency Medicine; PCP Specialist
DX: D64.9 Anemia, unspecified (principal); K74.60 Unspecified cirrhosis of liver
CPT/HCPCS: 36415; 85025; 86850; 86900; 86901; 86923; 99283

== ENCOUNTER → 2024-12-15 | Outpatient (CLI) | payer MEDICARE, MEDICAID, SELFPAY ==
[2024-12-15 13:21] LABS: Basophils % (Auto) 2 % (0-2.5); Eosinophils # (Auto) 0.4 Thou/mm3 (0.0-0.5); Eosinophils % (Auto) 20 % (0-10); Hematocrit 22.2 % (41.0-53.0); Immature Granulocytes % (Auto) 1 % (0-0); Immature Granulocytes Auto 0.01 Thou/mm3 (0.00-0.00); Lymphocytes # (Auto) 0.3 Thou/mm3 (1.0-4.8); Lymphocytes % (Auto) 17 % (10-50); Mean Corpuscular HGB Conc 31.1 g/dl (31.0-37.0); Mean Corpuscular Hemoglobin 29.6 pg (25.0-35.0); Mean Corpuscular Volume 95 fL (80-100); Monocytes # (Auto) 0.2 Thou/mm3 (0.0-0.8); Monocytes % (Auto) 13 % (0-12); Neutrophils # (Auto) 0.9 Thou/mm3 (1.8-7.7); Neutrophils % (Auto) 47 % (37-80); Nucleated Red Blood Cell % 0 /100 WBC (0); RDW Standard Deviation 51.8 fL (35.1-43.9); Red Blood Count 2.33 Miln/mm3 (4.50-5.90)
[2024-12-15 13:52] LABS: Alanine Aminotransferase 16 U/L (10-49); Albumin, Serum 2.5 gm/dL (3.4-4.8); Albumin/Globulin Ratio 0.8 (1.2-2.2); Alkaline Phosphatase 124 U/L (46-116); Anion Gap 6 (7-16); Aspartate Amino Transferase 12 U/L (0-34); BUN/Creatinine Ratio 14 Ratio (12-20); Bilirubin,Total 2.8 mg/dL (0.3-1.2); Blood Urea Nitrogen 19 mg/dL (9-23); Calcium 7.9 mg/dL (8.3-10.6); Calcium (Corrected) 9.1 mg/dL (8.5-10.1); Carbon Dioxide 27.8 mMol/L (20.0-31.0); Chloride 100 mMol/L (98-107); Creatinine (Component) 1.4 mg/dL (0.6-1.3); Globulin 3.2 gm/dL (2.3-3.5); Glucose 124 mg/dL (74-106); Osmolality,Calculated 271 (275-295); Sodium 134 mMol/L (136-145); Total Protein 5.7 gm/dL (5.7-8.2); eGFR 55 See Note
[2024-12-15 13:55] LABS: White Blood Count 1.8 Thou/mm3 (3.8-10.6)
[2024-12-15 14:10] LABS: Path Review Blood Smear Sent to Pathologist
[2024-12-15 14:47] LABS: Hemoglobin 6.9 g/dL (13.5-16.0)
[2024-12-15 14:49] LABS: Platelet Count 51 Thou/mm3 (140-440)
[2024-12-15 14:51] LABS: Slide Review Platelets confirmed
== END | disposition home or self-care (01) ==
LOC: COPL 11:33
PROVIDERS: PCP Specialist; Referring Provider Specialist; Visit Provider Specialist
DX: K76.6 Portal hypertension (principal); K74.60 Unspecified cirrhosis of liver; K20.90 Esophagitis, unspecified without bleeding
CPT/HCPCS: 36415; 80053; 85025

== ENCOUNTER 2024-12-17 09:46 | Emergency (ER) | payer MEDICARE, MEDICAID, SELFPAY ==
[2024-12-17] VITALS (14 sets, daily range): BP systolic 70–115; BP diastolic 38–78; PULSE 84–91; RESP 14–18; TEMP 36.4–36.7; O2SAT 98–100; BMI 25.7
--- NOTE | 2024-12-17 10:14 | PD.EDRME ---
Rapid Medical Screening Exam [facility] Arrival date/time: 12/17/24 09:46 64-year-old male with a history of alcoholic liver cirrhosis presents to the emergency room with a chief complaint of fatigue, weakness, and a low hemoglobin level. Patient states he was called by Dr. Koch his monument setter helper yesterday night and was told to come to the emergency room for a low hemoglobin level. I have greeted and performed a focused initial assessment of this patient. A comprehensive ED assessment and evaluation of the patient, analysis of all test results, and completion of the medical decision making process will be conducted by additional ED providers. Chief Complaint: Recheck/Abnormal Lab/Rx Vital signs: Vital Signs Temperature 98.0 F 12/17/24 10:11 Pulse Rate 85 12/17/24 10:11 Respiratory Rate 18 12/17/24 10:11 Blood Pressure 70/38 L 12/17/24 10:11 Pulse Oximetry (%) 99 12/17/24 10:11 Oxygen Delivery Method Room Air 12/17/24 10:11 Vital signs reviewed by provider: Yes
--- NOTE | 2024-12-17 10:31 | PD.EDRECHK ---
ED Recheck Abnl Lab Rx-RME/HPI General Chief Complaint: Recheck/Abnormal Lab/Rx Stated Complaint: H/H LOW Time Seen by Provider: 12/17/24 10:25 Arrival date/time: 12/17/24 09:46 RME / HPI RME / HPI narrative: 12/17/24 09:46 64-year-old male with a history of alcoholic liver cirrhosis presents to the emergency room with a chief complaint of fatigue, weakness, and a low hemoglobin level. Patient states he was called by Dr. Koch his call center recruiter yesterday night and was told to come to the emergency room for a low hemoglobin level. I have greeted and performed a focused initial assessment of this patient. A comprehensive ED assessment and evaluation of the patient, analysis of all test results, and completion of the medical decision making process will be conducted by additional ED providers. DR. VIRGEN MAIN ED EVALUATION: 64 year old male presents to the Emergency Department sent by Dr. Koch for a blood transfusion for low H/H 6.9/22.2, labs drawn yesterday. Patient does report fatigue/ generalized weakness. PMHx: Anemia Social Hx: No tobacco, alcohol, or substance use. Related Data Home Medications ?Medication ?Instructions ?Recorded ?Confirmed lactulose 20 gram/30 mL oral 30 g PO BID 06/13/24 08/28/24 solution pantoprazole 40 mg tablet,delayed 40 mg PO BID 06/13/24 08/28/24 release propranolol 10 mg tablet 10 mg PO TID 06/13/24 08/28/24 Held on 09/02/24. Instructions: Resume on 09/16/24. Hold in the setting of low blood pressure, follow-up outpatient with PCP in 1 to 2 weeks after discharge before restarting the medication rifaximin 550 mg tablet (Xifaxan) 550 mg PO BID 06/13/24 08/28/24 Previous Rx's ?Medication ?Instructions ?Recorded bumetanide 1 mg tablet 2 mg (2 x 1 mg) PO BID 1 month 09/02/24 #120 tabs spironolactone 25 mg tablet 25 mg PO BID 1 month #240 tabs 09/02/24 Allergies Allergy/AdvReac Type Severity Reaction Status Date / Time aspirin Allergy Severe GI bleed Verified 11/27/24 08:17 Review of Systems Review of Systems Systems Reviewed: All systems reviewed, normal except as documented Narrative Review of Systems: GEN: No fever, no chills, no weight loss EYES: No discharge, no visual changes, no pain HEENT: No ear pain, no congestion, no sore throat PULM: No shortness of breath, no cough, no congestion CV: No chest pain, no dyspnea on exertion, no palpitations GI: No nausea, no vomiting, no diarrhea, no pain, no constipation : No frequency, no urgency and no dysuria MUSC/SKEL: No joint pain, no back pain SKIN: No rash PSYCH: No hallucinations, no depression HEME/LYMPH: No easy bleeding or bruising tendencies NEURO: + fatigue/ generalized weakness, no headache Past Medical History Past Medical History CARDIAC: Positive Cardiac Disorders, Atrial Fibrillation, Heart Murmur, Edema, Cellulitis and Hypertension GASTROINTESTINAL: Positive Gastrointestinal Disorders, Cirrhosis, Gastrointestinal Bleed, Esophageal Varices, Obstructive Bowel and Gastroesophageal Reflux Disease MUSCULOSKELETAL: Positive Fractures HEMATOLOGIC: Positive Blood Disorders and Anemia OTHER HISTORY: Positive Hospitalization, Falls, Blood Transfusions, Chicken Pox, Measles and Mumps Family History FAMILY HISTORY: Positive Family Cancer Surgical History SURGICAL: Negative Abdominal Surgery Social History SMOKING STATUS: Never smoker SECOND HAND EXPOSURE: No SUBSTANCE USE: does not use ALCOHOL: Never ED Exam Narrative Physical exam: GENERAL APPEARANCE: alert and oriented x 4, well-developed, well-nourished, no acute distress VITALS: All vitals were reviewed and the pulse ox is 99% on room air, which is normal according to my interpretation. HEENT: Normocephalic, atraumatic; pupils equal, round, reactive to light; EOMI; mucous membranes pink, moist; oropharynx clear NECK: Supple LUNGS: CTABL; no wheezes, no rales, no rhonchi HEART: Regular rate, regular rhythm; normal S1, S2; no murmurs ABDOMEN: non distended; normal BS; soft, no tenderness, no guarding, no rebound; no masses, no organomegaly, no hernia BACK: no CVA tenderness EXTREMITIES: atraumatic; no edema NEUROLOGIC: awake; alert and oriented x4; cranial nerves II-XII grossly intact; no focal sensory or motor deficits PSYCHIATRIC: appropriate mood and affect SKIN: warm, dry, normal color; no rashes Course Quality Measures none Orders Category Date Time Status IV [Insert IV] NOW Care 12/17/24 10:41 Active Transfuse,blood/blood products NOW Care 12/17/24 11:15 Active Diet Regular Diet 12/17/24 Dinner Active CBC Stat Lab 12/17/24 10:38 Completed CMP [Comprehensive Metabolic Panel] Stat Lab 12/17/24 10:28 Completed Magnesium Stat Lab 12/17/24 10:28 Completed PT [Prothrombin Time with INR] Stat Lab 12/17/24 10:28 Completed PTT [Partial Thromboplastin Time] Stat Lab 12/17/24 10:28 Completed Red Blood Cells Stat Lab 12/17/24 10:28 Results Type and Screen Stat Lab 12/17/24 10:28 Results KCL 10% Liq UDC 15 ML Med 12/17/24 15:32 Discontinued 40 meq PO X1 ONE Vital Signs Vital signs: Vital Signs Temperature 98.0 F 12/17/24 10:11 Pulse Rate 85 12/17/24 10:11 Respiratory Rate 18 12/17/24 10:11 Blood Pressure 70/38 L 12/17/24 10:11 Pulse Oximetry (%) 99 12/17/24 10:11 Oxygen Delivery Method Room Air 12/17/24 10:11 Recheck / Abnormal Lab / Rx MDM Narrative MDM Narrative:: ITrupti am scribing for and in the presence of Dr. Virgen. Patient data External records reviewed:: [facility] previous records (Reviewed last ED visit dated 11/27/24 discharged with the following: Chronic anemia) Clinical information provided by:: patient Social determinants that could affect healthcare access:: none Patient has the following chronic illnesses:: Anemia How is presenting disease/condition affected by chronic disease/condition?: exacerbated by Evaluation data The following diagnostics were reviewed and interpreted by me:: lab results Lab and/or radiology exams considered but not ordered:: none Interpretation Summary: Hgb 7.1 today and 2 days ago 6.9. Potassium 2.9 Medications / Prescriptions Medications or Prescriptions considered but not ordered:: none Medication administrations:: Medication Administration History Discontinued Medications Potassium Chloride (Potassium Chloride 10% 20 Meq/15 Ml Udc) 40 meq PO X1 ONE Stop: 12/17/24 15:33 Last Admin: 12/17/24 16:36 Dose: 40 meq Documented By: DO see above Consultations Consultation(s) initiated? (list below): Yes Consultation #1 (Physician, Specialty, Details): Discussed test HPI, PMHx, lab, radiology results and/or management with Dr. Koch. Recommends blood transfusion and then can be discharged and follow as an outpatient. Time: 15:31 Diagnosis Recheck Differential Diagnosis: other (anemia, low hemoglobin, dehydration) Most likely diagnosis given after review of the tests above:: Symptomatic anemia Transfusion of blood during current hospitalization Admission Indicated Admission indicated?: not indicated Admission Request Was there a request for admission?: No Disposition Plan Disposition Plan: Discharge Discharge Attestation Discharge Attestation: The patient and all family members were given an opportunity to ask questions and understood the discharge instructions. Discharge instructions specifically effects, indications for sooner follow up or return to the emergency department, and the expected course of current diagnosis. Patient condition: Stable Discharge Plan Plan Patient Disposition: HOME (Self Care) Prescriptions/Referrals Prescriptions/Med Rec: No Action bumetanide 1 mg Tablet 2 mg PO BID 30 Days Qty: 120 0RF spironolactone 25 mg Tablet 25 mg PO BID 30 Days Qty: 240 0RF propranolol 10 mg Tablet 10 mg PO TID pantoprazole 40 mg Tablet,Delayed Release (Dr/Ec) 40 mg PO BID Xifaxan 550 mg Tablet 550 mg PO BID lactulose 20 gram/30 mL Solution 30 g PO BID Referrals: No Primary/Family,Physician [Primary Care Provider] - In 1 week Problem List Clinical Impression: Symptomatic anemia, Transfusion of blood during current hospitalization Patient/Caregiver Discharge Instructions Education Materials: ED Anemia Type Not Specified Print Language: Montenegrin Stand Alone Forms: Pam Award Info., Patient Portal Info Letter
[2024-12-17 10:41] LABS: Basophils % (Auto) 1 % (0-2.5); Eosinophils # (Auto) 0.6 Thou/mm3 (0.0-0.5); Eosinophils % (Auto) 23 % (0-10); Hematocrit 23.2 % (41.0-53.0); Immature Granulocytes % (Auto) 0 % (0-0); Immature Granulocytes Auto 0.01 Thou/mm3 (0.00-0.00); Lymphocytes # (Auto) 0.5 Thou/mm3 (1.0-4.8); Lymphocytes % (Auto) 19 % (10-50); Mean Corpuscular HGB Conc 30.6 g/dl (31.0-37.0); Mean Corpuscular Hemoglobin 28.1 pg (25.0-35.0); Mean Corpuscular Volume 92 fL (80-100); Monocytes # (Auto) 0.3 Thou/mm3 (0.0-0.8); Monocytes % (Auto) 13 % (0-12); Neutrophils # (Auto) 1.1 Thou/mm3 (1.8-7.7); Neutrophils % (Auto) 43 % (37-80); Nucleated Red Blood Cell % 0 /100 WBC (0); RDW Standard Deviation 50.7 fL (35.1-43.9); Red Blood Count 2.53 Miln/mm3 (4.50-5.90)
[2024-12-17 10:50] LABS: INR 1.4 (0.9-1.3); Partial Thromboplastin Time 29.6 Seconds (22.0-36.0)
[2024-12-17 10:52] LABS: Alanine Aminotransferase 19 U/L (10-49); Albumin, Serum 2.7 gm/dL (3.4-4.8); Albumin/Globulin Ratio 0.8 (1.2-2.2); Alkaline Phosphatase 123 U/L (46-116); Anion Gap 5 (7-16); Aspartate Amino Transferase 40 U/L (0-34); BUN/Creatinine Ratio 13 Ratio (12-20); Bilirubin,Total 2.3 mg/dL (0.3-1.2); Blood Urea Nitrogen 18 mg/dL (9-23); Calcium 8.3 mg/dL (8.3-10.6); Calcium (Corrected) 9.3 mg/dL (8.5-10.1); Carbon Dioxide 26.9 mMol/L (20.0-31.0); Chloride 102 mMol/L (98-107); Creatinine (Component) 1.4 mg/dL (0.6-1.3); Estimated Creatinine Clearance 53.6 mL/min (>60); Globulin 3.3 gm/dL (2.3-3.5); Glucose 99 mg/dL (74-106); Osmolality,Calculated 270 (275-295); Potassium 2.9 mMol/L (3.4-5.1); Sodium 134 mMol/L (136-145); eGFR 55 See Note
[2024-12-17 11:06] LABS: Hemoglobin 7.1 g/dL (13.5-16.0); Platelet Count 56 Thou/mm3 (140-440)
[2024-12-17 11:07] LABS: White Blood Count 2.4 Thou/mm3 (3.8-10.6)
[2024-12-17 12:54] LABS: Slide Review Platelets confirmed
[2024-12-17 16:23] LABS: Magnesium 1.8 mg/dL (1.6-2.6)
[2024-12-17] MEDS: POTASSIUM CHLORIDE 10% 20 MEQ/15 ML UDC 40 MEQ PO (16:36)
== END 2024-12-17 20:48 | disposition home or self-care (01) ==
PROVIDERS: Nurse Practitioner Family; Emergency Provider Emergency Medicine
DX: D64.9 Anemia, unspecified (principal)
CPT/HCPCS: 36415; 36430; 80053; 83735; 85025; 85610; 85730; 86850; 86900; 86901; 86923; 99285; P9016; A9270

== ENCOUNTER → 2024-12-29 | Outpatient (CLI) | payer MEDICARE, MEDICAID, SELFPAY ==
[2024-12-29 11:29] LABS: Basophils % (Auto) 2 % (0-2.5); Eosinophils # (Auto) 0.4 Thou/mm3 (0.0-0.5); Eosinophils % (Auto) 20 % (0-10); Hematocrit 29.2 % (41.0-53.0); Hemoglobin 9.5 g/dL (13.5-16.0); Immature Granulocytes % (Auto) 1 % (0-0); Immature Granulocytes Auto 0.02 Thou/mm3 (0.00-0.00); Lymphocytes # (Auto) 0.5 Thou/mm3 (1.0-4.8); Lymphocytes % (Auto) 24 % (10-50); Mean Corpuscular HGB Conc 32.5 g/dl (31.0-37.0); Mean Corpuscular Volume 89 fL (80-100); Monocytes # (Auto) 0.3 Thou/mm3 (0.0-0.8); Monocytes % (Auto) 13 % (0-12); Neutrophils # (Auto) 0.9 Thou/mm3 (1.8-7.7); Neutrophils % (Auto) 41 % (37-80); Nucleated Red Blood Cell % 0 /100 WBC (0); RDW Standard Deviation 56.2 fL (35.1-43.9); Red Blood Count 3.28 Miln/mm3 (4.50-5.90)
[2024-12-29 11:35] LABS: Platelet Count 46 Thou/mm3 (140-440); White Blood Count 2.2 Thou/mm3 (3.8-10.6)
[2024-12-29 11:39] LABS: Alanine Aminotransferase 21 U/L (10-49); Albumin, Serum 2.6 gm/dL (3.4-4.8); Albumin/Globulin Ratio 0.8 (1.2-2.2); Alkaline Phosphatase 118 U/L (46-116); Anion Gap 9 (7-16); Aspartate Amino Transferase 39 U/L (0-34); BUN/Creatinine Ratio 13 Ratio (12-20); Bilirubin,Total 2.8 mg/dL (0.3-1.2); Blood Urea Nitrogen 20 mg/dL (9-23); Calcium 8.4 mg/dL (8.3-10.6); Calcium (Corrected) 9.5 mg/dL (8.5-10.1); Carbon Dioxide 27.4 mMol/L (20.0-31.0); Chloride 100 mMol/L (98-107); Creatinine (Component) 1.5 mg/dL (0.6-1.3); Globulin 3.3 gm/dL (2.3-3.5); Glucose 107 mg/dL (74-106); Osmolality,Calculated 274 (275-295); Potassium 3.2 mMol/L (3.4-5.1); Sodium 136 mMol/L (136-145); Total Protein 5.9 gm/dL (5.7-8.2); eGFR 51 See Note
[2024-12-29 14:38] LABS: Slide Review Platelets confirmed
== END | disposition home or self-care (01) ==
LOC: COPL 10:01
PROVIDERS: PCP Specialist; Referring Provider Specialist; Visit Provider Specialist
DX: K76.6 Portal hypertension (principal); K74.60 Unspecified cirrhosis of liver; K20.90 Esophagitis, unspecified without bleeding
CPT/HCPCS: 36415; 80053; 85025

== ENCOUNTER → 2025-01-12 | Outpatient (CLI) | payer MEDICARE, MEDICAID, SELFPAY ==
[2025-01-12 12:49] LABS: Basophils % (Auto) 2 % (0-2.5); Eosinophils # (Auto) 0.5 Thou/mm3 (0.0-0.5); Eosinophils % (Auto) 18 % (0-10); Hematocrit 28.3 % (41.0-53.0); Hemoglobin 9.4 g/dL (13.5-16.0); Immature Granulocytes % (Auto) 0 % (0-0); Immature Granulocytes Auto 0.01 Thou/mm3 (0.00-0.00); Lymphocytes # (Auto) 0.5 Thou/mm3 (1.0-4.8); Lymphocytes % (Auto) 20 % (10-50); Mean Corpuscular HGB Conc 33.2 g/dl (31.0-37.0); Mean Corpuscular Hemoglobin 29.5 pg (25.0-35.0); Mean Corpuscular Volume 89 fL (80-100); Monocytes # (Auto) 0.3 Thou/mm3 (0.0-0.8); Monocytes % (Auto) 12 % (0-12); Neutrophils # (Auto) 1.2 Thou/mm3 (1.8-7.7); Neutrophils % (Auto) 48 % (37-80); Nucleated Red Blood Cell % 0 /100 WBC (0); RDW Standard Deviation 59.6 fL (35.1-43.9); Red Blood Count 3.19 Miln/mm3 (4.50-5.90)
[2025-01-12 13:07] LABS: White Blood Count 2.5 Thou/mm3 (3.8-10.6)
[2025-01-12 13:08] LABS: Platelet Count 58 Thou/mm3 (140-440)
[2025-01-12 13:12] LABS: Slide Review Platelets confirmed
[2025-01-12 13:13] LABS: Alanine Aminotransferase 21 U/L (10-49); Albumin, Serum 2.8 gm/dL (3.4-4.8); Albumin/Globulin Ratio 0.8 (1.2-2.2); Alkaline Phosphatase 121 U/L (46-116); Anion Gap 9 (7-16); Aspartate Amino Transferase 36 U/L (0-34); BUN/Creatinine Ratio 12 Ratio (12-20); Bilirubin,Total 3.5 mg/dL (0.3-1.2); Blood Urea Nitrogen 18 mg/dL (9-23); Calcium 8.4 mg/dL (8.3-10.6); Calcium (Corrected) 9.4 mg/dL (8.5-10.1); Chloride 101 mMol/L (98-107); Creatinine (Component) 1.5 mg/dL (0.6-1.3); Globulin 3.4 gm/dL (2.3-3.5); Glucose 96 mg/dL (74-106); Osmolality,Calculated 273 (275-295); Potassium 2.8 mMol/L (3.4-5.1); Sodium 136 mMol/L (136-145); Total Protein 6.2 gm/dL (5.7-8.2); eGFR 51 See Note
== END | disposition home or self-care (01) ==
LOC: COPL 11:40
PROVIDERS: PCP Specialist; Referring Provider Specialist; Visit Provider Specialist
DX: K20.90 Esophagitis, unspecified without bleeding (principal); K74.60 Unspecified cirrhosis of liver; K76.6 Portal hypertension
CPT/HCPCS: 36415; 80053; 85025

== ENCOUNTER → 2025-01-26 | Outpatient (CLI) | payer MEDICARE, MEDICAID, SELFPAY ==
[2025-01-26 12:01] LABS: Basophils % (Auto) 1 % (0-2.5); Eosinophils # (Auto) 0.6 Thou/mm3 (0.0-0.5); Eosinophils % (Auto) 22 % (0-10); Hematocrit 25.2 % (41.0-53.0); Immature Granulocytes % (Auto) 0 % (0-0); Immature Granulocytes Auto 0.01 Thou/mm3 (0.00-0.00); Lymphocytes # (Auto) 0.5 Thou/mm3 (1.0-4.8); Lymphocytes % (Auto) 18 % (10-50); Mean Corpuscular HGB Conc 32.9 g/dl (31.0-37.0); Mean Corpuscular Hemoglobin 30.4 pg (25.0-35.0); Mean Corpuscular Volume 92 fL (80-100); Monocytes # (Auto) 0.3 Thou/mm3 (0.0-0.8); Monocytes % (Auto) 12 % (0-12); Neutrophils # (Auto) 1.3 Thou/mm3 (1.8-7.7); Neutrophils % (Auto) 46 % (37-80); Nucleated Red Blood Cell % 0 /100 WBC (0); RDW Standard Deviation 60.7 fL (35.1-43.9); Red Blood Count 2.73 Miln/mm3 (4.50-5.90)
[2025-01-26 12:11] LABS: Alanine Aminotransferase 17 U/L (10-49); Albumin, Serum 2.7 gm/dL (3.4-4.8); Albumin/Globulin Ratio 0.8 (1.2-2.2); Alkaline Phosphatase 119 U/L (46-116); Anion Gap 8 (7-16); Aspartate Amino Transferase 34 U/L (0-34); BUN/Creatinine Ratio 12 Ratio (12-20); Bilirubin,Total 2.8 mg/dL (0.3-1.2); Blood Urea Nitrogen 17 mg/dL (9-23); Calcium 8.6 mg/dL (8.3-10.6); Calcium (Corrected) 9.6 mg/dL (8.5-10.1); Carbon Dioxide 28.4 mMol/L (20.0-31.0); Chloride 101 mMol/L (98-107); Creatinine (Component) 1.4 mg/dL (0.6-1.3); Globulin 3.2 gm/dL (2.3-3.5); Glucose 90 mg/dL (74-106); Osmolality,Calculated 275 (275-295); Potassium 3.2 mMol/L (3.4-5.1); Sodium 137 mMol/L (136-145); Total Protein 5.9 gm/dL (5.7-8.2); eGFR 55 See Note
[2025-01-26 12:12] LABS: White Blood Count 2.8 Thou/mm3 (3.8-10.6)
[2025-01-26 12:13] LABS: Hemoglobin 8.3 g/dL (13.5-16.0); Platelet Count 51 Thou/mm3 (140-440); Slide Review Platelets confirmed
== END | disposition home or self-care (01) ==
LOC: COPL 11:04
PROVIDERS: PCP Specialist; Referring Provider Specialist; Visit Provider Specialist
DX: K20.90 Esophagitis, unspecified without bleeding (principal); K74.60 Unspecified cirrhosis of liver; K76.6 Portal hypertension
CPT/HCPCS: 36415; 80053; 85025

== ENCOUNTER → 2025-02-25 | Outpatient (CLI) | payer MEDICARE, MEDICAID, SELFPAY ==
[2025-02-25 12:08] LABS: Basophils % (Auto) 1 % (0-2.5); Eosinophils # (Auto) 0.5 Thou/mm3 (0.0-0.5); Eosinophils % (Auto) 17 % (0-10); Hematocrit 24.3 % (41.0-53.0); Immature Granulocytes % (Auto) 1 % (0-0); Immature Granulocytes Auto 0.02 Thou/mm3 (0.00-0.00); Lymphocytes # (Auto) 0.5 Thou/mm3 (1.0-4.8); Lymphocytes % (Auto) 17 % (10-50); Mean Corpuscular HGB Conc 33.3 g/dl (31.0-37.0); Mean Corpuscular Hemoglobin 30.7 pg (25.0-35.0); Mean Corpuscular Volume 92 fL (80-100); Monocytes # (Auto) 0.4 Thou/mm3 (0.0-0.8); Monocytes % (Auto) 13 % (0-12); Neutrophils # (Auto) 1.5 Thou/mm3 (1.8-7.7); Neutrophils % (Auto) 51 % (37-80); Nucleated Red Blood Cell % 0 /100 WBC (0); RDW Standard Deviation 52.3 fL (35.1-43.9); Red Blood Count 2.64 Miln/mm3 (4.50-5.90)
[2025-02-25 12:09] LABS: Hemoglobin 8.1 g/dL (13.5-16.0); Platelet Count 56 Thou/mm3 (140-440)
[2025-02-25 12:17] LABS: Alanine Aminotransferase 18 U/L (10-49); Albumin, Serum 2.8 gm/dL (3.4-4.8); Anion Gap 8 (7-16); Aspartate Amino Transferase 33 U/L (0-34); BUN/Creatinine Ratio 11 Ratio (12-20); Bilirubin,Total 2.9 mg/dL (0.3-1.2); Blood Urea Nitrogen 17 mg/dL (9-23); Calcium 8.2 mg/dL (8.3-10.6); Calcium (Corrected) 9.2 mg/dL (8.5-10.1); Carbon Dioxide 27.9 mMol/L (20.0-31.0); Chloride 102 mMol/L (98-107); Creatinine (Component) 1.6 mg/dL (0.6-1.3); Glucose 128 mg/dL (74-106); Osmolality,Calculated 279 (275-295); Potassium 3.3 mMol/L (3.4-5.1); Sodium 138 mMol/L (136-145); Total Protein 5.8 gm/dL (5.7-8.2); eGFR 47 See Note
[2025-02-25 12:18] LABS: Albumin/Globulin Ratio 0.9 (1.2-2.2); Alkaline Phosphatase 115 U/L (46-116)
[2025-02-25 12:59] LABS: Slide Review Platelets confirmed
== END | disposition home or self-care (01) ==
LOC: COPL 11:00
PROVIDERS: PCP Specialist; Referring Provider Specialist; Visit Provider Specialist
DX: K20.90 Esophagitis, unspecified without bleeding (principal)
CPT/HCPCS: 36415; 80053; 85025

== ENCOUNTER → 2025-03-25 | Outpatient (CLI) | payer MEDICARE, MEDICAID, SELFPAY ==
[2025-03-25 11:40] LABS: Basophils % (Auto) 0 % (0-2.5); Eosinophils # (Auto) 0.4 Thou/mm3 (0.0-0.5); Eosinophils % (Auto) 11 % (0-10); Hematocrit 22.8 % (41.0-53.0); Immature Granulocytes % (Auto) 1 % (0-0); Immature Granulocytes Auto 0.04 Thou/mm3 (0.00-0.00); Lymphocytes # (Auto) 0.3 Thou/mm3 (1.0-4.8); Lymphocytes % (Auto) 9 % (10-50); Mean Corpuscular HGB Conc 31.6 g/dl (31.0-37.0); Mean Corpuscular Hemoglobin 27.3 pg (25.0-35.0); Mean Corpuscular Volume 86 fL (80-100); Monocytes # (Auto) 0.4 Thou/mm3 (0.0-0.8); Monocytes % (Auto) 10 % (0-12); Neutrophils # (Auto) 2.7 Thou/mm3 (1.8-7.7); Neutrophils % (Auto) 69 % (37-80); Nucleated Red Blood Cell % 0 /100 WBC (0); RDW Standard Deviation 48.8 fL (35.1-43.9); Red Blood Count 2.64 Miln/mm3 (4.50-5.90); White Blood Count 3.9 Thou/mm3 (3.8-10.6)
[2025-03-25 11:43] LABS: Hemoglobin 7.2 g/dL (13.5-16.0); Platelet Count 40 Thou/mm3 (140-440)
[2025-03-25 11:49] LABS: Alanine Aminotransferase 22 U/L (10-49); Albumin, Serum 2.8 gm/dL (3.4-4.8); Alkaline Phosphatase 80 U/L (46-116); Anion Gap 8 (7-16); Aspartate Amino Transferase 42 U/L (0-34); BUN/Creatinine Ratio 17 Ratio (12-20); Bilirubin,Total 2.1 mg/dL (0.3-1.2); Blood Urea Nitrogen 33 mg/dL (9-23); Calcium 7.8 mg/dL (8.3-10.6); Calcium (Corrected) 8.8 mg/dL (8.5-10.1); Carbon Dioxide 28.8 mMol/L (20.0-31.0); Chloride 98 mMol/L (98-107); Creatinine (Component) 1.9 mg/dL (0.6-1.3); Globulin 2.9 gm/dL (2.3-3.5); Glucose 119 mg/dL (74-106); Osmolality,Calculated 278 (275-295); Sodium 135 mMol/L (136-145); Total Protein 5.7 gm/dL (5.7-8.2); eGFR 38 See Note
[2025-03-25 12:25] LABS: Slide Review Platelets confirmed
== END | disposition home or self-care (01) ==
LOC: COPL 10:30
PROVIDERS: PCP Specialist; Referring Provider Specialist; Visit Provider Specialist
DX: Z01.89 Encounter for other specified special examinations (principal)
CPT/HCPCS: 36415; 80053; 85025

== ENCOUNTER → 2025-04-08 | Outpatient (CLI) | payer MEDICARE, MEDICAID, SELFPAY ==
[2025-04-08 12:56] LABS: Basophils % (Auto) 2 % (0-2.5); Eosinophils # (Auto) 0.1 Thou/mm3 (0.0-0.5); Eosinophils % (Auto) 7 % (0-10); Hematocrit 23.9 % (41.0-53.0); Immature Granulocytes % (Auto) 2 % (0-0); Immature Granulocytes Auto 0.03 Thou/mm3 (0.00-0.00); Lymphocytes # (Auto) 0.5 Thou/mm3 (1.0-4.8); Lymphocytes % (Auto) 23 % (10-50); Mean Corpuscular HGB Conc 31.4 g/dl (31.0-37.0); Mean Corpuscular Hemoglobin 27.2 pg (25.0-35.0); Mean Corpuscular Volume 87 fL (80-100); Monocytes # (Auto) 0.3 Thou/mm3 (0.0-0.8); Monocytes % (Auto) 15 % (0-12); Neutrophils % (Auto) 51 % (37-80); Nucleated Red Blood Cell % 0 /100 WBC (0); RDW Standard Deviation 56.1 fL (35.1-43.9); Red Blood Count 2.76 Miln/mm3 (4.50-5.90)
[2025-04-08 12:57] LABS: Hemoglobin 7.5 g/dL (13.5-16.0); Platelet Count 60 Thou/mm3 (140-440)
[2025-04-08 13:06] LABS: Alanine Aminotransferase 24 U/L (10-49); Albumin, Serum 2.8 gm/dL (3.4-4.8); Albumin/Globulin Ratio 0.9 (1.2-2.2); Alkaline Phosphatase 102 U/L (46-116); Anion Gap 13 (7-16); Aspartate Amino Transferase 36 U/L (0-34); BUN/Creatinine Ratio 11 Ratio (12-20); Bilirubin,Total 2.6 mg/dL (0.3-1.2); Blood Urea Nitrogen 18 mg/dL (9-23); Calcium 8.1 mg/dL (8.3-10.6); Calcium (Corrected) 9.1 mg/dL (8.5-10.1); Carbon Dioxide 25.7 mMol/L (20.0-31.0); Chloride 97 mMol/L (98-107); Creatinine (Component) 1.6 mg/dL (0.6-1.3); Glucose 103 mg/dL (74-106); Osmolality,Calculated 273 (275-295); Potassium 3.4 mMol/L (3.4-5.1); Sodium 136 mMol/L (136-145); Total Protein 5.8 gm/dL (5.7-8.2); eGFR 47 See Note
[2025-04-08 15:45] LABS: Slide Review Platelets confirmed
== END | disposition home or self-care (01) ==
LOC: COPL 11:40
PROVIDERS: PCP Specialist; Referring Provider Specialist; Visit Provider Specialist
DX: K20.90 Esophagitis, unspecified without bleeding (principal); K76.6 Portal hypertension
CPT/HCPCS: 36415; 80053; 85025

== ENCOUNTER → 2025-04-22 | Outpatient (CLI) | payer MEDICARE, MEDICAID, SELFPAY ==
[2025-04-22 10:07] LABS: Eosinophils # (Auto) 0.2 Thou/mm3 (0.0-0.5); Eosinophils % (Auto) 9 % (0-10); Hematocrit 21.1 % (41.0-53.0); Immature Granulocytes % (Auto) 2 % (0-0); Immature Granulocytes Auto 0.04 Thou/mm3 (0.00-0.00); Lymphocytes # (Auto) 0.4 Thou/mm3 (1.0-4.8); Lymphocytes % (Auto) 17 % (10-50); Mean Corpuscular HGB Conc 31.3 g/dl (31.0-37.0); Mean Corpuscular Hemoglobin 26.3 pg (25.0-35.0); Monocytes % (Auto) 14 % (0-12); Neutrophils # (Auto) 1.3 Thou/mm3 (1.8-7.7); Neutrophils % (Auto) 58 % (37-80); Red Blood Count 2.51 Miln/mm3 (4.50-5.90)
[2025-04-22 10:09] LABS: Basophils % (Auto) 1 % (0-2.5); Mean Corpuscular Volume 84 fL (80-100); Monocytes # (Auto) 0.3 Thou/mm3 (0.0-0.8); Nucleated Red Blood Cell % 0 /100 WBC (0)
[2025-04-22 10:14] LABS: Alanine Aminotransferase 22 U/L (10-49); Albumin, Serum 2.6 gm/dL (3.4-4.8); Alkaline Phosphatase 96 U/L (46-116); Anion Gap 9 (7-16); Aspartate Amino Transferase 28 U/L (0-34); BUN/Creatinine Ratio 11 Ratio (12-20); Bilirubin,Total 2.7 mg/dL (0.3-1.2); Blood Urea Nitrogen 18 mg/dL (9-23); Calcium 8.3 mg/dL (8.3-10.6); Calcium (Corrected) 9.4 mg/dL (8.5-10.1); Carbon Dioxide 26.5 mMol/L (20.0-31.0); Chloride 96 mMol/L (98-107); Creatinine (Component) 1.6 mg/dL (0.6-1.3); Globulin 2.7 gm/dL (2.3-3.5); Glucose 120 mg/dL (74-106); Osmolality,Calculated 265 (275-295); Sodium 131 mMol/L (136-145); Total Protein 5.3 gm/dL (5.7-8.2); eGFR 47 See Note
[2025-04-22 10:25] LABS: White Blood Count 2.2 Thou/mm3 (3.8-10.6)
[2025-04-22 10:26] LABS: Hemoglobin 6.6 g/dL (13.5-16.0); Platelet Count 47 Thou/mm3 (140-440)
[2025-04-22 11:44] LABS: Slide Review Platelets confirmed
== END | disposition home or self-care (01) ==
PROVIDERS: PCP Specialist; Referring Provider Specialist; Visit Provider Specialist
DX: K20.90 Esophagitis, unspecified without bleeding (principal); K76.6 Portal hypertension
CPT/HCPCS: 36415; 80053; 85025

== ENCOUNTER 2025-04-24 08:30 | Inpatient (IN) | payer MEDICARE, MEDICAID, SELFPAY ==
[2025-04-24] VITALS (15 sets, daily range): BP systolic 108–129; BP diastolic 48–83; PULSE 82–107; RESP 15–23; TEMP 36.3–37.2; O2SAT 97–100
[2025-04-24 09:26] LABS: Alanine Aminotransferase 24 U/L (10-49); Albumin, Serum 2.6 gm/dL (3.4-4.8); Alkaline Phosphatase 95 U/L (46-116); Anion Gap 11 (7-16); Aspartate Amino Transferase 35 U/L (0-34); BUN/Creatinine Ratio 14 Ratio (12-20); Bilirubin,Total 2.8 mg/dL (0.3-1.2); Blood Urea Nitrogen 19 mg/dL (9-23); Calcium 7.7 mg/dL (8.3-10.6); Calcium (Corrected) 8.8 mg/dL (8.5-10.1); Carbon Dioxide 23.1 mMol/L (20.0-31.0); Chloride 97 mMol/L (98-107); Creatinine (Component) 1.4 mg/dL (0.6-1.3); Globulin 2.5 gm/dL (2.3-3.5); Glucose 120 mg/dL (74-106); Osmolality,Calculated 265 (275-295); Potassium 2.8 mMol/L (3.4-5.1); Sodium 131 mMol/L (136-145); Total Protein 5.1 gm/dL (5.7-8.2); eGFR 55 See Note
[2025-04-24 09:52] LABS: Basophils % (Auto) 1 % (0-2.5); Eosinophils # (Auto) 0.1 Thou/mm3 (0.0-0.5); Eosinophils % (Auto) 7 % (0-10); Hematocrit 20.3 % (41.0-53.0); Immature Granulocytes % (Auto) 2 % (0-0); Immature Granulocytes Auto 0.03 Thou/mm3 (0.00-0.00); Lymphocytes # (Auto) 0.3 Thou/mm3 (1.0-4.8); Lymphocytes % (Auto) 16 % (10-50); Mean Corpuscular HGB Conc 31.5 g/dl (31.0-37.0); Mean Corpuscular Hemoglobin 26.6 pg (25.0-35.0); Mean Corpuscular Volume 84 fL (80-100); Monocytes # (Auto) 0.3 Thou/mm3 (0.0-0.8); Monocytes % (Auto) 17 % (0-12); Neutrophils # (Auto) 1.1 Thou/mm3 (1.8-7.7); Neutrophils % (Auto) 58 % (37-80); Nucleated Red Blood Cell % 0 /100 WBC (0); RDW Standard Deviation 53.8 fL (35.1-43.9); Red Blood Count 2.41 Miln/mm3 (4.50-5.90)
[2025-04-24 09:58] LABS: Hemoglobin 6.3 g/dL (13.5-16.0); Platelet Count 44 Thou/mm3 (140-440)
[2025-04-24 10:10] LABS: INR 1.4 (0.9-1.3); Partial Thromboplastin Time 30.5 Seconds (22.0-36.0)
[2025-04-24 10:45] LABS: Slide Review Platelets confirmed
--- NOTE | 2025-04-24 11:31 | PD.EDADULT ---
ED General RME/HPI General Chief complaint: Recheck/Abnormal Lab/Rx Stated complaint: Hemoglobin 6.6 Arrival date/time: 04/24/25 08:30 RME / HPI RME / HPI narrative: DR. WHELAN MAIN ED EVALUATION: 64 year old male with past medical history significant for liver cirrhosis from alcoholism (18 years sober) and anemia presents to the Emergency Department sent by Dr. Koch for a blood transfusion for a hemoglobin is 6.6 and a hematocrit is 21.1. Patient also complains of generalized weakness. Otherwise, no fevers, chills, cough, congestion, runny nose, recent illness, rash, abdominal pain, chest pain, fall, injury, loss of consciousness, or other symptoms at this time. Related Data Home Medications ?Medication ?Instructions ?Recorded ?Confirmed lactulose 20 gram/30 mL oral 30 g PO BID 06/13/24 08/28/24 solution pantoprazole 40 mg tablet,delayed 40 mg PO BID 06/13/24 08/28/24 release propranolol 10 mg tablet 10 mg PO TID 06/13/24 08/28/24 Held on 09/02/24. Instructions: Resume on 09/16/24. Hold in the setting of low blood pressure, follow-up outpatient with PCP in 1 to 2 weeks after discharge before restarting the medication rifaximin 550 mg tablet (Xifaxan) 550 mg PO BID 06/13/24 08/28/24 Previous Rx's ?Medication ?Instructions ?Recorded bumetanide 1 mg tablet 2 mg (2 x 1 mg) PO BID 1 month 09/02/24 #120 tabs spironolactone 25 mg tablet 25 mg PO BID 1 month #240 tabs 09/02/24 Allergies Allergy/AdvReac Type Severity Reaction Status Date / Time aspirin Allergy Severe GI bleed Verified 04/24/25 08:35 Review of Systems Review of Systems Systems Reviewed: All systems reviewed, normal except as documented Narrative Review of Systems: Constitutional: POSITIVES: generalized weakness DENIES: fevers; Eyes: DENIES: loss of vision; Head/Ear/Nose: DENIES: loss of hearing. Throat: DENIES: dysphagia. Cardiovascular: DENIES: chest pain, dyspnea, or syncope. Respiratory: DENIES: shortness of breath; Gastrointestinal: DENIES: rectal bleeding or melena. Genitourinary: DENIES: dysuria (painful or difficult urination); Musculoskeletal: DENIES: arthralgia (pain in a joint); Skin: DENIES: rash; Neurological: DENIES: loss of function or movement; Psychiatric: DENIES: recent major life stressor, emotional problem, illicit drug use or abuse; Endocrinology: DENIES: weight change,; Hematologic/Lymphatic: DENIES: abnormal bruising. Allergic/Immunologic: DENIES: urticaria (hives). Past Medical History Past Medical History CARDIAC: Positive Cardiac Disorders, Atrial Fibrillation, Heart Murmur, Edema, Cellulitis and Hypertension GASTROINTESTINAL: Positive Gastrointestinal Disorders, Cirrhosis, Gastrointestinal Bleed, Esophageal Varices, Obstructive Bowel and Gastroesophageal Reflux Disease MUSCULOSKELETAL: Positive Fractures HEMATOLOGIC: Positive Blood Disorders and Anemia OTHER HISTORY: Positive Hospitalization, Falls, Blood Transfusions, Chicken Pox, Measles and Mumps Family History FAMILY HISTORY: Positive Family Cancer Surgical History SURGICAL: Positive Abdominal Surgery (TIPS PROCEDURE 7 WEEKS AGO PER PT) Social History SMOKING STATUS: Never smoker SECOND HAND EXPOSURE: No SUBSTANCE USE: does not use ALCOHOL: Never ED Exam Narrative Physical exam: Physical Exam: General: The vital signs were reviewed. The patient is non-toxic, in no apparent distress and appears healthy with a patent airway, no respiratory distress and has no apparent circulatory problems. Head & Scalp: Normocephalic, atraumatic. Face: Appears normal and is without lesions, deformity. Ears: Left external pinna appears normal. Right external pinna appears normal. Eyes: The sclera is anicteric. No obvious photophobia. The Left and Right Orbit/Lid/Conjunctiva appears normal without swelling, discoloration or injection. Nose: The nose is without deformity, discharge or tenderness; Throat: Appears normal. The mucous membranes are pink and moist without exudates, redness or mass seen. The tongue appears normal. Neck: The neck is supple and no apparent mass or adenopathy. Chest: The chest wall is normal in size and symmetry and has no chest wall tenderness or crepitus. The patient displays normal ventilator effort without retractions, accessory muscle use and has adequate air movement bilaterally with no wheezes and no rales. Cardiovascular: Regular rate and rhythm; No murmurs, rubs, or gallops; Gastrointestinal: The abdomen appears normal. No obvious hernias or mass. The abdomen is soft and benign, non-distended, with no pain, no guarding and no rebound tenderness. Bowel sounds are present and normal sounding. No CVA tenderness. Genitourinary: Rectal done with dark stool strongly positive on guaiac card for blood. Back/Spine: Normal inspection Extremities/Musculoskeletal/lymphatic: The bilateral upper and lower extremities are warm. There is no evidence of arterial insufficiency. There is no evidence of venous insufficiency/edema. The patient spontaneously moves bilateral upper and lower extremities with no pain and no limitation of movement. There is no apparent, injury or trauma. Skin: The skin is warm, dry and intact. No rashes. No petechia. No purpura. No abnormal bruising. The color is appropriate with no cyanosis. Mental status/Psychiatric: Mental status is appropriate for age. The patient has no apparent delusions, visual hallucinations, no apparent audible hallucinations. The patient has no apparent suicidal thoughts/ideation and no apparent homicidal thoughts/ideation. Neurological: The patient is awake, alert, interactive, cordial, cooperative and is oriented to name and situation. The patient follows commands and answers historical question with no impairment. There is no visual disturbance apparent. The pupils are equal and reactive bilaterally with normal eye movements and no diplopia The bilateral upper and lower extremities have normal strength, normal range of motion and normal functioning. The gait, station and balance appear to be baseline with no acute change Rectal Exam Rectal exam: Present heme (+) stool Course Quality Measures none Orders Category Date Time Status Insert IV NOW Care 04/24/25 08:41 Active Transfuse,blood/blood products NOW Care 04/24/25 08:40 Active Consult to Gastroenterology Stat Cons 04/24/25 11:45 Ordered CBC Stat Lab 04/24/25 09:45 Completed Comprehensive Metabolic Panel Stat Lab 04/24/25 08:54 Completed Partial Thromboplastin Time Stat Lab 04/24/25 09:45 Completed Prothrombin Time with INR Stat Lab 04/24/25 09:45 Completed Type and Screen Stat Lab 04/24/25 08:54 Results prbc [Red Blood Cells] Stat Lab 04/24/25 08:54 Results Octreotide Acet Inj [SandoSTATIN Inj] Med 04/24/25 11:37 Discontinued 50 mcg IV X1 ONE POTASSIUM CHL 10 mEq IVPB [Kcl Ivpb] Med 04/24/25 11:45 Active 10 meq in 100 ml IV Q1H Pantoprazole/Ns 80Mg IV Premix [Protonix/NS 80mg IV Med 04/24/25 11:38 Discontinued Premix] 80 mg in 100 ml IV X1 Pantoprazole/Ns 80Mg IV Premix [Protonix/NS 80mg IV Med 04/24/25 11:53 Active Premix] 80 mg in 100 ml IV X1 Sodium Chloride 0.9% [Ns] 100 ml Med 04/24/25 11:37 Active Octreotide Acet Inj [SandoSTATIN Inj] 1,000 mcg IV 50 mcg/hr Vital Signs Vital signs: Vital Signs Temperature 98.9 F 04/24/25 08:41 Pulse Rate 107 H 04/24/25 08:41 Respiratory Rate 16 04/24/25 08:41 Blood Pressure 108/66 04/24/25 08:41 Pulse Oximetry (%) 100 04/24/25 08:41 Oxygen Delivery Method Room Air 04/24/25 08:41 Critical Care Time Critical Care Time Critical Care Time: Yes Total Critical Care Time (min.): 60 Attestation: The high probability of sudden, clinically significant deterioration in the patient?s condition required the highest level of my preparedness to intervene urgently. The services I provided to this patient were to treat and/or prevent clinically significant deterioration. Services included the following: chart data review, reviewing nursing notes and/or old charts, documentation time, business travel consultant collaboration regarding findings and treatment options, medication orders and management, direct patient care, vital sign assessments and ordering, interpreting and reviewing diagnostic studies and lab tests. Aggregate critical care time includes only time during which I was engaged in work directly related to the patient?s care, as described above, whether at bedside or elsewhere in the Emergency Department. It did not include time spent performing other reported procedures or the services of residents, students, nurses or physician assistants. Discharge Plan Plan Patient Disposition: Admit Acute Care w/in Hospital Problem List Clinical Impression: Severe anemia, GI bleed, Hx of cirrhosis, Portal hypertension, Acute hypokalemia, Renal insufficiency MDM Narrative [facility] hospital course: I, Trupti Solo, am scribing for and in the presence of Dr. Whelan. Patient comes in with weakness and found to have a hemoglobin of 6.3 and has recurring bouts of severe anemia requiring transfusion today. Today's stool is strongly guaiac positive. Dr. Koch was contacted and he will be consulting he has known portal hypertension. He is going to be started on octreotide and Protonix drips. Hospitalist was then contacted and they will be admitting. Laboratory studies show white count of 2.0 hemoglobin is 6.3 normal is in the 7-8 range. PT is 15 INR 1.4 PTT 30.5. Sodium 131 potassium 2.8 chloride 97 CO2 23 creatinine is chronically elevated at 1.4-1.8 range. Total bilirubin is 2.8. Urinalysis still pending. Patient is going to get 2 units of blood today be admitted for observation started out the hypokalemia. Patient denies drinking at this time uncertain why his potassium is 2.8 certainly could be related to medications. Clinical Information Provided by patient Medical Records Reviewed [facility] Meds/Rx Considered, not Ordered None Labs/Rad/Tests considered, not Ordered None Chronic Illness/Social Conditions Add or document further as needed: liver cirrhosis from alcoholism (18 years sober) and anemia EKG EKG not done Lab Interpretation Labs: see narrative above Imaging Imaging interpretation: none Medication Administration(s) Medication Administration History Acetaminophen (Acetaminophen 325 Mg Tablet) 650 mg PO Q6H PRN PRN Reason: Fever >100.3 OR PAIN 1-3 Stop: 05/24/25 13:55 Octreotide Acetate 1,000 mcg/ (Sodium Chloride) 102 mls @ 5.1 mls/hr IV .Q20H ONE; Protocol Stop: 04/25/25 07:36 Pantoprazole Sodium (Protonix/Ns 80mg Iv Premix) 80 mg in 100 mls @ 10 mls/hr IV X1 ONE Stop: 04/24/25 21:52 Potassium Chloride (Kcl Ivpb) 10 meq in 100 mls @ 100 mls/hr IV Q1H LATRICE Stop: 04/24/25 15:44 Last Admin: 04/24/25 13:59 Dose: 100 mls/hr Documented By: Infusion: 04/24/25 13:25 Dose: Infused Documented By: Admin: 04/24/25 12:23 Dose: 100 mls/hr Documented By: AMARILYS Lactulose (Lactulose Syrup 20 Gm/30 Ml Udc) 30 gm PO BID LATRICE; Protocol Stop: 05/24/25 20:59 Discontinued Medications Pantoprazole Sodium (Protonix/Ns 80mg Iv Premix) 80 mg in 100 mls @ 400 mls/hr IV X1 ONE Stop: 04/24/25 11:52 Last Infusion: 04/24/25 12:30 Dose: Infused Documented By: Admin: 04/24/25 12:14 Dose: 400 mls/hr Documented By: AMARILYS Octreotide Acetate (Octreotide Acet Inj 50 Mcg/Ml Vial) 50 mcg IV X1 ONE Stop: 04/24/25 11:38 Last Admin: 04/24/25 12:09 Dose: 50 mcg Documented By: AMARILYS Potassium Chloride (Potassium Chloride 20 Meq Tabcr) 40 meq PO X1 ONE Stop: 04/24/25 14:03 Consultations/Discussions re: Management Consult #1: Date/time: 04/24/25 2:04 pm Physician, specialty, service, details: Discussed test HPI, PMHx, lab, radiology results and/or management with resident working with the hospitalist. Will admit for further evaluation and management. Accepts patient for admission. Diagnosis Differential diagnosis: anemia, dehydration, electrolyte imbalance Most likely dx, and/or detailed dx discussion: Severe anemia GI bleed History of cirrhosis Portal hypertension Acute hypokalemia Renal insufficiency Dispositon Disposition: Admit
[2025-04-24] MEDS: OCTREOTIDE ACET INJ 50 mCg/ML VIAL IV (12:09)
[2025-04-24] MEDS: PANTOPRAZOLE/NS 80MG IV PREMIX 80 MG/100 ML BAG 400 MG IV (12:14)
[2025-04-24] MEDS: POTASSIUM CHL 10 mEq IVPB 10 MEQ/100 ML BAG 100 MEQ IV ×4 (12:23→17:48)
--- NOTE | 2025-04-24 13:11 | PC.NURSE ---
PATIENT ARRIVED VIA EMS FROM HOME, PATIENT WITH COMPLAINT OF LEFT SHOULDER PAIN SINCE THIS MORNING DUE TO SON TRANSFERRING PATIENT FROM BED TO CHAIR. PATIENT NOT ABLE TO AMBULATE. EMS REPORTS THAT PATIENT HAS NOT HAD DIALYSIS SINCE SUNDAY DUE TO TRANSPORT ISSUES. EMS ALSO WITH CONCERNS OF PATIENT CARE WHILE AT HOME DUE TO FAMILY WITHHOLDING PAIN MEDICATION FOR THE PAST 3 DAYS. [employer] COMPLETED APS FORM AND FAXED DOCUMENT. COPY OF REPORT IN PATIENT CHART.
--- NOTE | 2025-04-24 15:24 | PC.NURSE ---
Report given to KOIR Willams
--- NOTE | 2025-04-24 15:53 | ESHP_ITS ---
<Statement entered by Krishna Garcia MD - 04/24/25 17:45> I discussed with and supervised the internet marketing coordinator physician involved in the care of this patient. Patient assessment and plan was discussed with entire medicine team, including my attending. I agree with the assessment and plan as documented by internet marketing coordinator doctor. Patient care was discussed with my attending physician Dr. Loan Garcia, PGY-2 Documentation for date of: 04/24/25 HPI History of Present Illness Chief complaint: blackish discoloration of stools History of present illness: A 63 year old male with significant past medical history of atrial fibrillation not on anticoagulation, alcoholic liver cirrhosis s/p TIPS, end-stage liver disease, GI bleeds, ascites, hyperlipidemia, s/p umbilical hernia surgery recurrent hospitalizations for GI bleed and hepatic encephalopathy was referred to our hospital in view of low hemoglobin which was noted yesterday when he went to get his regular lab work done. Patient stated that he is having blackish discoloration of stools from a long period of time. Stated that he is passing 3-4 stools per day. Stated that he is having pedal edema over years from now. Denies blood in the stools or bloody vomitings. No history of sleep cycle disturbances. No history of any altered mental status. Denies any increase in abdominal distention or decrease in urine output. Denies fever, vomitings, shortness of breath. Patient regularly follows up with Dr. Koch for cirrhosis. Reported that he recently underwent upper GI endoscopy, patient does not remember his reporting ED course: - Vitals are stable except for mild tachycardia - Labs at the time of admission are significant for WBC 2, Hb 6.3, platelets 44, INR 1.4, sodium 131, potassium 2.8, chloride 97, creatinine 1.4, total bilirubin 2.8, AST 35 - Patient was given 40 mill equivalents of IV potassium, started on octreotide and pantoprazole drip - Consulted rug cleaner hand, Dr. Koch and he recommended endoscopy tomorrow Past medical history: Atrial fibrillation, ESLD s/p TIPS, GI bleed, ascites, hepatic encephalopathy, hyperlipidemia Past surgical history: Umbilical hernia surgery, tubes Social history: Stopped alcohol consumption almost 15 years ago, denies smoking, other illicit drug abuse Allergies: Aspirin Review of Systems Review of Systems Systems Reviewed: All systems reviewed, normal except as documented Exam Vital Signs Temp Pulse Resp BP Pulse Ox O2 Del Method 97.7 F 85 20 123/58 L 100 Room Air 04/24/25 15:26 04/24/25 15:26 04/24/25 15:26 04/24/25 15:26 04/24/25 15:26 04/24/25 14:08 Narrative Exam General: Awake. HEENT: Normocephalic, atraumatic, mucous membranes moist. Heart: Regular rate and rhythm, pansystolic murmur heard in all 4 areas. Lungs: Clear to auscultation with no wheezing or crackles. Abdomen: Soft, nondistended, nontender, positive bowel sounds. ?No guarding or rebound tenderness. Noted umbilical hernia. Noted midline incision below the umbilicus Neurologic: Alert and oriented x3, no gross neurological deficit, and patient able to move all 4 extremities. Extremities: Bilateral 4+ pitting pedal edema extending up to the knees, appears chronic in the setting of skin thickening and induration Skin: No rash or ecchymoses. Results: Labs 04/25/25 05:01 04/25/25 05:01 Labs: Short CBC 04/24/25 Range/Units 09:45 WBC 2.0 L (3.8-10.6) Thou/mm3 Hgb 6.3 L* (13.5-16.0) g/dL Hct 20.3 L* (41.0-53.0) % Plt Count 44 L (140-440) Thou/mm3 BMP 04/24/25 08:54 Sodium 131 L Potassium 2.8 L Chloride 97 L Carbon Dioxide 23.1 BUN 19 Creatinine 1.4 H Glucose 120 H Calcium 7.7 L Liver Function 04/24/25 Range/Units 08:54 Total Bilirubin 2.8 H (0.3-1.2) mg/dL AST 35 H (0-34) U/L ALT 24 (10-49) U/L Alkaline Phosphatase 95 (46-116) U/L Albumin 2.6 L (3.4-4.8) gm/dL Quality Measures Quality Measures none Advance care planning discussed with:: patient Medications Home Medications and Allergies Home Medications ?Medication ?Instructions ?Recorded ?Confirmed ?Type lactulose 20 gram/30 mL oral 30 g PO BID 06/13/2408/06 History solution pantoprazole 40 mg tablet,delayed 40 mg PO BID 4 08/28/24 History release propranolol 10 mg tablet 10 mg PO TID 06/13/24 History Held on 09/02/24. Instructions: Resume on 09/16/24. Hold in the setting of low blood pressure, follow-up outpatient with PCP in 1 to 2 weeks after discharge before restarting the medication rifaximin 550 mg tablet (Xifaxan) 550 mg PO BID 08/28/24 History Allergies Allergy/AdvReac Type Severity Reaction Status Date / Time aspirin Allergy Severe GI bleed Verified 04/24/25 08:35 Visit Medications Acetaminophen (Acetaminophen 325 Mg Tablet) 650 mg PO Q6H PRN PRN Reason: Fever >100.3 OR PAIN 1-3 Stop: 05/24/25 13:55 Bumetanide (Bumetanide Inj 0.25 Mg/Ml Vial 4 Ml) 1 mg IVP BIDD [facility] Stop: 05/24/25 17:59 Octreotide Acetate 1,000 mcg/ (Sodium Chloride) 102 mls @ 5.1 mls/hr IV .Q20H ONE; Protocol Stop: 04/25/25 07:36 Pantoprazole Sodium (Protonix/Ns 80mg Iv Premix) 80 mg in 100 mls @ 10 mls/hr IV X1 ONE Stop: 04/24/25 21:52 Ceftriaxone Sodium/Dextrose (Rocephin/D5w 1gm Iv Premix) 1 gm in 50 mls @ 100 mls/hr IV QDAY LATRICE Stop: 05/01/25 15:45 Lactulose (Lactulose Syrup 20 Gm/30 Ml Udc) 30 gm PO BID LATRICE; Protocol Stop: 05/24/25 20:59 Spironolactone (Spironolactone 25 Mg Tablet) 25 mg PO BIDD [facility] Stop: 05/24/25 17:59 Discontinued Medications Pantoprazole Sodium (Protonix/Ns 80mg Iv Premix) 80 mg in 100 mls @ 400 mls/hr IV X1 ONE Stop: 04/24/25 11:52 Last Infusion: 04/24/25 12:30 Dose: Infused Potassium Chloride (Kcl Ivpb) 10 meq in 100 mls @ 100 mls/hr IV Q1H LATRICE Stop: 04/24/25 15:44 Last Admin: 04/24/25 15:15 Dose: 100 mls/hr Octreotide Acetate (Octreotide Acet Inj 50 Mcg/Ml Vial) 50 mcg IV X1 ONE Stop: 04/24/25 11:38 Last Admin: 04/24/25 12:09 Dose: 50 mcg Potassium Chloride (Potassium Chloride 20 Meq Tabcr) 40 meq PO X1 ONE Stop: 04/24/25 14:03 Assessment & Plan Plan A 63 year old male with significant past medical history of atrial fibrillation, alcoholic liver cirrhosis s/p TIPS, end-stage liver disease, GI bleeds, ascites, hyperlipidemia, s/p umbilical hernia surgery recurrent hospitalizations for GI bleed and hepatic encephalopathy with recent hospitalization on 06/13/2024 for hepatic encephalopathy was referred to our hospital in view of low hemoglobin # Acute blood loss anemia # Melena, Likely UGI, from varices -Patient had history of blackish discoloration of stools over a significant period of time from now. -Denies hematemesis, hematochezia. -Hb at admission = 6.3 -EGD done on 08/08/2024 showed esophagitis, gastritis with hemorrhage, characterized by congestion. Noted significant oozing of blood from gastric mucosa due to underlying advanced portal hypertension and portal gastropathy. Plan -Started octreotide infusion. -Pantoprazole 40 Mg IV twice daily. -2 PRBC transfusion ordered. -Repeat H&H after completion of transfusions. -Started on ceftriaxone and will continue rifaximin. -Will continue lactulose p.o. 30gm twice daily -Will consult rug cleaner hand Dr. Koch, appreciate recommendations - recommended UGI endoscopy tomorrow -Will hold propranolol for now # CKD, likely hepatorenal syndrome, stage IIIa - Patient is having CKD since 1 year, creatinine is around 1.4 - Creatinine at the time of admission is 1.4 Plan - Will continue to monitor renal functions - Will avoid nephrotoxic medications and renally dose medications # Hypokalemia - Potassium at the time of admission is 2.8 - Repleted with 40 meq of oral potassium and 40 mill equivalents of IV potassium # History of decompensated cirrhosis s/p TIPS # Hyperbilirubinemia # Coagulopathy #2/2 chronic alcohol abuse -Patient had history of cirrhosis for almost 16 years from now. -Patient had bilateral pedal edema extending upto knees -Using bumetanide, spironolactone Plan -Will continue bumetanide, spironolactone. # History of hepatic encephalopathy -Patient does not have any signs and symptoms of hepatic encephalopathy at current point of time. -No asterixis Plan -Will continue lactulose -Will titrate lactulose to maintain the stool frequency to at least 3 times per day. #History of paroxysmal atrial fibrillation -Patient has regular heart rate as of today -INR is 1.4 on 04/24/2025 -Patient was admitted with the bleeding manifestations -Patient is following with acute care clinical nurse specialist, Dr. Reyez -Has bled score 3. Plan -Patient is not a good candidate for anticoagulation. # Leukopenia # Thrombocytopenia -As expected in the setting of cirrhosis with portal hypertension. -he is at his baseline counts. -Will monitor CBC. # History of hyperlipidemia Hospital disposition:Tele GI prophylaxis: Pantoprazole DVT prophylaxis: SCD Diet:NPO after midnight Plan of care discussed with my attending Dr. Cates and senior resident Dr. Jose Dumont, PGY1 Attending Provider Attestation/Addendum I, Catherine Cates, DO, attest that I was physically present for the zaragoza portions of the service and evaluated the patient with the resident and I reviewed and discussed the case with the resident and agree with the resident's findings and plans of care as documented above Patient is a 63-year-old male with past medical history of A-fib, alcoholic liver cirrhosis status post TIPS, end-stage liver disease, GI bleed, ascites, hyperlipidemia status post umbilical hernia repair who was referred by his rug cleaner hand to come to the ED due to his acute blood loss anemia with a hemoglobin of 6.3. Patient frequently gets blood transfusions due to chronic GI bleeds. Patient states he often improves while on octreotide due to his varices, but often has black stools at home. He has noted to have 3+ pitting edema in bilateral lower extremities. He also takes diuretics at home. He denies any abdominal pain, fevers, chills, nausea or vomiting. Patient states he has been compliant to his medications. Will start patient on octreotide, Rocephin, Protonix drip and Bumex IV twice daily. GI was consulted from ED and recommends admission for endoscopy in the a.m. Will admit patient to telemetry for further workup and medical management of acute blood loss anemia secondary to upper GI bleed, likely from esophageal varices. Continue to trend H&H. 2 units of PRBCs have been ordered. Will follow-up with post fusion H&H. Will also monitor volume status closely due to concern for fluid overload
[2025-04-24] MEDS: cefTRIAXone/D5w 1gm IV premix 1 GM/50 ML BAG IV (17:47)
[2025-04-24] MEDS: OCTREOTIDE ACET INJ 1,000 MCG in SODIUM CHLORIDE 0.9% 100 ML 5.1 MCG IV (17:47)
[2025-04-24] MEDS: BUMETANIDE INJ 0.25 MG/ML VIAL 4 ML 2 MG IVP (17:48)
[2025-04-24] MEDS: SPIRONOLACTONE 25 MG TABLET PO (17:49)
[2025-04-24] MEDS: POTASSIUM CHLORIDE 20 mEq TABCR 40 MEQ PO (17:49)
[2025-04-24] MEDS: PANTOPRAZOLE/NS 80MG IV PREMIX 80 MG/100 ML BAG 10 MG IV (19:11)
[2025-04-24 19:26] LABS: Hematocrit 24.4 % (41.0-53.0)
--- NOTE | 2025-04-24 19:39 | PD.IMCONS ---
HPI Data of Consult Requesting Physician: Catherine Cates DO Primary Care Provider: Arlette Koch MD Consult Narrative Reason for consult: Occult GI bleeding, posthemorrhagic anemia H/H 6.3/20.3 History of present illness: 64 years old male sent to the emergency room with low hemoglobin hematocrit On 04/08/2025 hemoglobin medical 7.5 and 23.9 On04/22/2025 it was 6.6 and 21.1 And today on 04/24/2020 2586.3 and 20.3 Rectal examination under the ER physician shows grossly Hemoccult positive stool and melanotic stool Initially send the patient only for blood transfusion But this degree of drop in hemoglobin hematocrit a change of mind and advised admission for further evaluation management cc:: cc: Catherine Cates DO Review of Systems Review of Systems Systems Reviewed: All systems reviewed, normal except as documented Past Medical History Surgical History OTHER SURGICAL HX: Recurrent GI bleeds requiring blood transfusion Chronic liver disease secondary to alcohol with advanced portal hypertension and anasarca History of elevation of the esophageal varices Status post placement of a TIPS shunt which was a revision Meds Home Medications and Allergies Home Medications ?Medication ?Instructions ?Recorded ?Confirmed ?Type lactulose 20 gram/30 mL oral 30 g PO BID 06/13/24 08/28/24 History solution pantoprazole 40 mg tablet,delayed 40 mg PO BID 06/13/24 08/28/24 History release propranolol 10 mg tablet 10 mg PO TID 06/13/24 08/28/24 History Held on 09/02/24. Instructions: Resume on 09/16/24. Hold in the setting of low blood pressure, follow-up outpatient with PCP in 1 to 2 weeks after discharge before restarting the medication rifaximin 550 mg tablet (Xifaxan) 550 mg PO BID 06/13/24 08/28/24 History Allergies Allergy/AdvReac Type Severity Reaction Status Date / Time aspirin Allergy Severe GI bleed Verified 04/24/25 08:35 Exam Vital Signs Temp Pulse Resp BP Pulse Ox O2 Del Method 98.4 F 82 22 H 123/58 L 99 Room Air 04/24/25 16:47 04/24/25 17:49 04/24/25 16:47 04/24/25 17:49 04/24/25 16:47 06/20/25 16:25 Constitutional Comments: Chronically ill-appearing Routine Respiratory Exam Comments: Normal to auscultation Routine Abdominal Exam Comments: Soft nontender Results Labs 04/24/25 19:02 04/24/25 08:54 Labs: Short CBC 04/24/25 04/24/25 Range/Units 09:45 19:02 WBC 2.0 L (3.8-10.6) Thou/mm3 Hgb 6.3 L* 8.0 L D (13.5-16.0) g/dL Hct 20.3 L* 24.4 L (41.0-53.0) % Plt Count 44 L (140-440) Thou/mm3 BMP 04/24/25 08:54 Sodium 131 L Potassium 2.8 L Chloride 97 L Carbon Dioxide 23.1 BUN 19 Creatinine 1.4 H Glucose 120 H Calcium 7.7 L Liver Function 04/24/25 Range/Units 08:54 Total Bilirubin 2.8 H (0.3-1.2) mg/dL AST 35 H (0-34) U/L ALT 24 (10-49) U/L Alkaline Phosphatase 95 (46-116) U/L Albumin 2.6 L (3.4-4.8) gm/dL Assessment and Plan Additional Assessment & Plan Additional Plan: # Occult GI bleeding most likely due to hypertensive portal gastropathy with mucosal oozing of blood Plan Octreotide infusion 50 mcg/h IV Protonix Transfused 2 units of PRBCs Serial CBC consent obtained for fiberoptic esophagogastroduodenoscopy with possible therapeutic intervention under intravenous moderate sedation Other medical problems include Anasarca recommend IV Bumex drip at 0.5 mg/h or 1 mg every 12 Daily weight 1 L p.o. physician in 24 hours Thank you very much for the opportunity to participate in the care of this patient
[2025-04-24] MEDS: LACTULOSE SYRUP 20 GM/30 ML UDC 30 GM PO (20:39)
[2025-04-25] VITALS (17 sets, daily range): BP systolic 93–118; BP diastolic 51–77; PULSE 56–94; RESP 12–21; TEMP 36.3–37.1; O2SAT 93–100
[2025-04-25] MEDS: BUMETANIDE INJ 0.25 MG/ML VIAL 4 ML 2 MG IVP ×2 (05:21→17:58)
[2025-04-25] MEDS: SPIRONOLACTONE 25 MG TABLET PO ×2 (05:22→17:59)
[2025-04-25 06:19] LABS: Basophils % (Auto) 1 % (0-2.5); Eosinophils # (Auto) 0.3 Thou/mm3 (0.0-0.5); Eosinophils % (Auto) 17 % (0-10); Hematocrit 24.6 % (41.0-53.0); Immature Granulocytes % (Auto) 2 % (0-0); Immature Granulocytes Auto 0.03 Thou/mm3 (0.00-0.00); Lymphocytes # (Auto) 0.4 Thou/mm3 (1.0-4.8); Lymphocytes % (Auto) 22 % (10-50); Mean Corpuscular HGB Conc 32.1 g/dl (31.0-37.0); Mean Corpuscular Volume 84 fL (80-100); Monocytes # (Auto) 0.3 Thou/mm3 (0.0-0.8); Monocytes % (Auto) 14 % (0-12); Neutrophils # (Auto) 0.8 Thou/mm3 (1.8-7.7); Neutrophils % (Auto) 44 % (37-80); Nucleated Red Blood Cell % 0 /100 WBC (0); RDW Standard Deviation 50.9 fL (35.1-43.9); Red Blood Count 2.93 Miln/mm3 (4.50-5.90)
[2025-04-25 06:28] LABS: Hemoglobin 7.9 g/dL (13.5-16.0); Platelet Count 34 Thou/mm3 (140-440); White Blood Count 1.7 Thou/mm3 (3.8-10.6)
[2025-04-25 06:43] LABS: Alanine Aminotransferase 20 U/L (10-49); Albumin, Serum 2.3 gm/dL (3.4-4.8); Alkaline Phosphatase 89 U/L (46-116); Anion Gap 11 (7-16); Aspartate Amino Transferase 29 U/L (0-34); BUN/Creatinine Ratio 10 Ratio (12-20); Bilirubin,Total 4.8 mg/dL (0.3-1.2); Blood Urea Nitrogen 13 mg/dL (9-23); Calcium 7.8 mg/dL (8.3-10.6); Calcium (Corrected) 9.2 mg/dL (8.5-10.1); Carbon Dioxide 24.6 mMol/L (20.0-31.0); Chloride 100 mMol/L (98-107); Creatinine (Component) 1.3 mg/dL (0.6-1.3); Globulin 2.4 gm/dL (2.3-3.5); Glucose 70 mg/dL (74-106); Osmolality,Calculated 270 (275-295); Potassium 3.1 mMol/L (3.4-5.1); Sodium 136 mMol/L (136-145); Thyroid Stimulating Hormone 0.81 uIU/mL (0.55-4.78); Total Protein 4.7 gm/dL (5.7-8.2); eGFR > 60 See Note
[2025-04-25 06:58] LABS: Slide Review Platelets confirmed
[2025-04-25] MEDS: DEXTROSE 50%-WATER INJ 50 ML SYRINGE IV (08:08)
[2025-04-25] MEDS: PANTOPRAZOLE INJ 40 MG VIAL IVP ×2 (08:08→20:12)
[2025-04-25] MEDS: LACTULOSE SYRUP 20 GM/30 ML UDC 30 GM PO ×2 (08:09→20:12)
[2025-04-25] MEDS: POTASSIUM CHLORIDE 20 mEq TABCR 40 MEQ PO (08:10)
[2025-04-25] MEDS: cefTRIAXone/D5w 1gm IV premix 1 GM/50 ML BAG IV (08:10)
[2025-04-25 08:11] LABS: Magnesium 1.6 mg/dL (1.6-2.6)
[2025-04-25] MEDS: OCTREOTIDE ACET INJ 1,000 MCG in SODIUM CHLORIDE 0.9% 100 ML 5.1 MCG IV (11:49)
--- NOTE | 2025-04-25 13:35 | ESPR_ITS ---
Documentation for date of: 04/25/25 Subjective Subjective Interval history: Patient is seen and examined at bedside No acute overnight events. Patient got 2 units of PRBC transfusion Vitals are stable. On physical examination, noted bilateral 4+ pitting pedal extending up to the knees Had 2 bowel movements and endorsed that he noticed a blackish discoloration of stools Patient is pending endoscopy today by Dr. Koch Found to have hypokalemia for which 40 mill equivalents of oral potassium is given and also repleted with 4 g of IV magnesium sulfate Will continue pantoprazole and octreotide drip Exam Vital Signs Temp Pulse Resp BP Pulse Ox O2 Del Method 98.4 F 90 18 114/53 L 93 L Room Air 04/25/25 12:00 04/25/25 12:00 04/25/25 12:00 04/25/25 12:00 04/25/25 12:04/25/25 04:00 Narrative Exam General: Awake. HEENT: Normocephalic, atraumatic, mucous membranes moist. Heart: Regular rate and rhythm, pansystolic murmur heard in all 4 areas. Lungs: Clear to auscultation with no wheezing or crackles. Abdomen: Soft, nondistended, nontender, positive bowel sounds. No guarding or rebound tenderness. Noted umbilical hernia. Noted midline incision below the umbilicus Neurologic: Alert and oriented x3, no gross neurological deficit, and patient able to move all 4 extremities. Extremities: Bilateral 4+ pitting pedal edema extending up to the knees, appears chronic in the setting of skin thickening and induration Skin: No rash or ecchymoses. Objective Labs 04/25/25 05:01 04/25/25 05:01 Labs: Laboratory Results - last 24 hr 04/24/25 04/24/25 04/25/25 08:54 19:02 05:01 WBC 1.7 L RBC 2.93 L Hgb 8.0 L D 7.9 L Hct 24.4 L 24.6 L MCV 84 MCH 27.0 MCHC 32.1 RDW Std Deviation 50.9 H Plt Count 34 L D Neut % (Auto) 44 Lymph % (Auto) 22 [place] % (Auto) 14 H Eos % (Auto) 17 H Baso % (Auto) 1 Neut # (Auto) 0.8 L Lymph # (Auto) 0.4 L [place] # (Auto) 0.3 Eos # (Auto) 0.3 Baso # (Auto) 0.0 Immature Gran # (Auto) 0.03 H Absolute Nucleated RBC 0.00 Immature Gran % 2 H Nucleated RBC % 0 Sodium 136 Potassium 3.1 L Chloride 100 Carbon Dioxide 24.6 Anion Gap 11 BUN 13 Creatinine 1.3 Estim Creat Clear Calc Not Performed. eGFR > 60 BUN/Creatinine Ratio 10 L Glucose 70 L D Calculated Osmolality 270 L Calcium 7.8 L Corrected Calcium 9.2 Magnesium 1.6 Total Bilirubin 4.8 H D AST 29 ALT 20 Alkaline Phosphatase 89 Total Protein 4.7 L Albumin 2.3 L Globulin 2.4 Albumin/Globulin Ratio 1.0 L TSH 0.81 Misc Test Result Platelets confirmed Blood Type AB Positive Antibody Screen NEGATIVE Crossmatch See Detail Blood Bank Wristband ID Yes Quality Measures Quality Measures none Advance care planning discussed with:: patient Assessment & Plan Assessment Current Active Medications: Generic Name Dose Route Start Last Admin Trade Name Freq PRN Reason Stop Dose Admin Acetaminophen 650 mg 04/24/25 13:56 Acetaminophen 325 Mg Tablet PO 05/24/25 13:55 Q6H PRN Fever >100.3 OR PAIN 1-3 Bumetanide 2 mg 04/24/25 18:00 04/25/25 05:21 Bumetanide Inj 0.25 Mg/Ml Vial 4 Ml IVP 05/24/25 17:59 2 mg BIDD LATRICE Administration Ceftriaxone Sodium/Dextrose 1 gm in 50 mls @ 100 mls/hr 04/24/25 15:46 04/25/25 08:10 Rocephin/D5w 1gm Iv Premix IV 05/01/25 15:45 100 mls/hr QDAY LATRICE Administration Octreotide Acetate 1,000 mcg/ 102 mls @ 5.1 mls/hr 04/25/25 08:06 04/25/25 11:49 Sodium Chloride IV 04/30/25 08:06 50 mcg/hr .Q20H LATRICE 5.1 mls/hr Administration Protocol 50 MCG/HR Lactulose 30 gm 04/24/25 21:00 04/25/25 08:09 Lactulose Syrup 20 Gm/30 Ml Udc PO 05/24/25 20:59 30 gm BID LATRICE Administration Protocol Pantoprazole Sodium 40 mg 04/25/25 09:00 04/25/25 08:08 Pantoprazole Inj 40 Mg Vial IVP 05/25/25 08:59 40 mg BID LATRICE Administration Spironolactone 25 mg 04/24/25 18:00 04/25/25 05:22 Spironolactone 25 Mg Tablet PO 05/24/25 17:59 25 mg BIDD LATRICE Administration Plan A 63 year old male with significant past medical history of atrial fibrillation, alcoholic liver cirrhosis s/p TIPS, end-stage liver disease, GI bleeds, ascites, hyperlipidemia, s/p umbilical hernia surgery recurrent hospitalizations for GI bleed and hepatic encephalopathy was referred to our hospital in view of low hemoglobin # Acute blood loss anemia # Melena, Likely UGI, from varices -Patient had history of blackish discoloration of stools over a significant period of time from now. -Denies hematemesis, hematochezia. -Hb at admission = 6.3 -EGD done on 08/08/2024 showed esophagitis, gastritis with hemorrhage, characterized by congestion. Noted significant oozing of blood from gastric mucosa due to underlying advanced portal hypertension and portal gastropathy. -2 PRBC transfusion ordered. Plan -Started octreotide infusion. -Pantoprazole 40 Mg IV twice. -Started on ceftriaxone and will continue rifaximin. -Will continue lactulose p.o. 30gm twice daily -Will consult loan interviewer Dr. Koch, appreciate recommendations - recommended UGI endoscopy today -Will hold propranolol for now # CKD, likely hepatorenal syndrome, stage IIIa - Patient is having CKD since 1 year, creatinine is around 1.4 - Creatinine at the time of admission is 1.4 -->1.3 04/25 Plan - Will continue to monitor renal functions - Will avoid nephrotoxic medications and renally dose medications # Hypokalemia - Potassium at the time of admission is 3.1 - Repleted with 40 meq of oral potassium - will monitor electrolytes and replete as needed # History of decompensated cirrhosis s/p TIPS # Hyperbilirubinemia # Coagulopathy #2/2 chronic alcohol abuse -Patient had history of cirrhosis for almost 16 years from now. -Patient had bilateral pedal edema extending upto knees -Using bumetanide, spironolactone Plan -Will continue bumetanide, spironolactone. # History of hepatic encephalopathy -Patient does not have any signs and symptoms of hepatic encephalopathy at current point of time. -No asterixis Plan -Will continue lactulose -Will titrate lactulose to maintain the stool frequency to at least 3 times per day. #History of paroxysmal atrial fibrillation -Patient has regular heart rate as of today -INR is 1.4 on 04/24/2025 -Patient was admitted with the bleeding manifestations -Patient is following with electroencephalograph technologist, Dr. Reyez -Has bled score 3. Plan -Patient is not a good candidate for anticoagulation. # Leukopenia # Thrombocytopenia -As expected in the setting of cirrhosis with portal hypertension. -he is at his baseline counts. -Will monitor CBC. # History of hyperlipidemia Hospital disposition:Tele GI prophylaxis: Pantoprazole DVT prophylaxis: SCD Diet:NPO after midnight Plan of care discussed with my attending Dr. Loan Dumont, PGY1 Attending Provider Attestation/Addendum ICatherine, , attest that I was physically present for the zaragoza portions of the service and evaluated the patient with the resident and I reviewed and discussed the case with the resident and agree with the resident's findings and plans of care as documented above Patient seen and evaluated this AM. No acute events overnight. Patient states he is feeling well and denies any shortness of breath. B/l LE edema is much improved, now trace. Will continue with bumex 2mg IV BID. Pending EGD this afternoon. H/H now 7.9 s/p 2 units pRBCs. Continue with octreotide and protonix at this time . Will f/u with EGD results
[2025-04-25] MEDS: Magnesium Sulfate 4 GM Ivpb 4 GM/50 ML BAG IV (14:52)
[2025-04-26] VITALS: PULSE 71; PULSE 80; RESP 20; TEMP 36.2; O2SAT 99
[2025-04-26 04:00] VITALS: BP 126/68; PULSE 91; RESP 20; TEMP 36.6; O2SAT 95
[2025-04-26 05:37] LABS: Basophils % (Auto) 2 % (0-2.5); Eosinophils # (Auto) 0.4 Thou/mm3 (0.0-0.5); Eosinophils % (Auto) 18 % (0-10); Hematocrit 25.3 % (41.0-53.0); Immature Granulocytes % (Auto) 1 % (0-0); Immature Granulocytes Auto 0.02 Thou/mm3 (0.00-0.00); Lymphocytes # (Auto) 0.4 Thou/mm3 (1.0-4.8); Lymphocytes % (Auto) 20 % (10-50); Mean Corpuscular HGB Conc 32.8 g/dl (31.0-37.0); Mean Corpuscular Hemoglobin 27.1 pg (25.0-35.0); Mean Corpuscular Volume 83 fL (80-100); Monocytes # (Auto) 0.4 Thou/mm3 (0.0-0.8); Monocytes % (Auto) 22 % (0-12); Neutrophils # (Auto) 0.7 Thou/mm3 (1.8-7.7); Neutrophils % (Auto) 38 % (37-80); Nucleated Red Blood Cell % 0 /100 WBC (0); RDW Standard Deviation 50.1 fL (35.1-43.9); Red Blood Count 3.06 Miln/mm3 (4.50-5.90)
[2025-04-26 05:58] VITALS: BP 111/51; PULSE 91
[2025-04-26 05:58] LABS: Alanine Aminotransferase 19 U/L (10-49); Albumin, Serum 2.4 gm/dL (3.4-4.8); Alkaline Phosphatase 93 U/L (46-116); Anion Gap 10 (7-16); Aspartate Amino Transferase 32 U/L (0-34); BUN/Creatinine Ratio 7 Ratio (12-20); Bilirubin,Total 3.6 mg/dL (0.3-1.2); Blood Urea Nitrogen 9 mg/dL (9-23); Calcium 7.7 mg/dL (8.3-10.6); Carbon Dioxide 25.7 mMol/L (20.0-31.0); Chloride 100 mMol/L (98-107); Creatinine (Component) 1.3 mg/dL (0.6-1.3); Globulin 2.5 gm/dL (2.3-3.5); Glucose 97 mg/dL (74-106); Osmolality,Calculated 270 (275-295); Potassium 3.2 mMol/L (3.4-5.1); Sodium 136 mMol/L (136-145); Total Protein 4.9 gm/dL (5.7-8.2); eGFR > 60 See Note
[2025-04-26] MEDS: BUMETANIDE INJ 0.25 MG/ML VIAL 4 ML 2 MG IVP (05:58)
[2025-04-26] MEDS: SPIRONOLACTONE 25 MG TABLET PO (05:58)
[2025-04-26 06:27] LABS: Hemoglobin 8.3 g/dL (13.5-16.0); Platelet Count 26 Thou/mm3 (140-440); White Blood Count 1.9 Thou/mm3 (3.8-10.6)
[2025-04-26 06:32] LABS: Slide Review Platelets confirmed
[2025-04-26 06:35] LABS: Path Review Blood Smear Sent to Pathologist
[2025-04-26 08:00] VITALS: BP 101/43; PULSE 74; PULSE 94; RESP 18; TEMP 36.2; O2SAT 99
[2025-04-26 09:18] LABS: Magnesium 1.5 mg/dL (1.6-2.6)
[2025-04-26] MEDS: POTASSIUM CHLORIDE 20 mEq TABCR 40 MEQ PO ×2 (09:19→11:08)
[2025-04-26] MEDS: cefTRIAXone/D5w 1gm IV premix 1 GM/50 ML BAG IV (09:20)
[2025-04-26] MEDS: PANTOPRAZOLE INJ 40 MG VIAL IVP (09:20)
[2025-04-26] MEDS: LACTULOSE SYRUP 20 GM/30 ML UDC 30 GM PO (09:20)
[2025-04-26] MEDS: ALBUMIN HUMAN 25% IVPB 12.5 GM/50 ML BTL IV (09:57)
[2025-04-26] MEDS: OCTREOTIDE ACET INJ 1,000 MCG in SODIUM CHLORIDE 0.9% 100 ML 5.1 MCG IV (11:07)
[2025-04-26] MEDS: Magnesium Sulfate 4 GM Ivpb 4 GM/50 ML BAG IV (11:07)
--- NOTE | 2025-04-26 11:34 | PC.NURSE ---
Per MD patient will be discharged after the infusion of Mag. approximately four hours.
[2025-04-26 12:00] VITALS: BP 110/57; PULSE 74; PULSE 90; RESP 18; TEMP 36.2; O2SAT 99
[2025-04-26] MEDS: MAGNESIUM OXIDE 400 MG TABLET PO (12:36)
--- NOTE | 2025-04-26 13:30 | ESCONSULT_ITS ---
HPI Data of Consult Requesting Physician: Catherine Cates DO Admitting Provider: Catherine Cates DO Attending Provider: Catherine Cates DO Primary Care Provider: Arlette Koch MD Consult Narrative History of present illness: CC: low blood Patient is a 64-year-old male with a past medical history of hyperlipidemia, history of paroxysmal atrial fibrillation currently rate controlled-given thrombocytopenia and cirrhosis, decompensated cirrhosis status post TIPS, grade 1 esophageal varices, hypertensive portal gastropathy with mucosal oozing, and pancytopenia, and history of frequent PRBC transfusions. Patient presented to the emergency room on 04/24/2025 with a chief complaint of low hemoglobin after being sent to the emergency room by Dr. Koch who he follows regularly. Patient was admitted by force team for acute on chronic anemia, concern for acute blood loss. Cardiology consulted given past medical history of paroxysmal atrial fibrillation currently sinus with occasional PVCs. ED course: Vitals are stable except for mild tachycardia Labs at the time of admission are significant for WBC 2, Hb 6.3, platelets 44, INR 1.4, sodium 131, potassium 2.8, chloride 97, creatinine 1.4, total bilirubin 2.8, AST 35 Patient was given 40 mill equivalents of IV potassium, started on octreotide and pantoprazole drip Consulted top flavor attendant, Dr. Koch and he recommended endoscopy tomorrow Past medical history: Atrial fibrillation, ESLD s/p TIPS, GI bleed, ascites, hepatic encephalopathy, hyperlipidemia Past surgical history: Umbilical hernia surgery, tubes Social history: Stopped alcohol consumption almost 15 years ago, denies smoking, other illicit drug abuse Allergies: Aspirin 04/26/2025: Patient examined at bedside. Patient stated he was sent from Dr. Koch's office after noted to have low hemoglobin hematocrit. Patient stated he is received frequent blood transfusions. Patient initially presented with mild fatigue, but per patient over all felt well. Patient denied chest pain, denied palpitations, and denied shortness of breath. Patient is adamant about being discharged today. Patient diend nuria blood loss. Patient monitors daily fluid intake and salt intake per history. Patient has a follow-up appointment with cardiology on 04/27/2025 to receive a Holter monitor given past medical history of paroxysmal atrial fibrillation. Telemetry box noted to be rate controlled and in sinus rhythm. Saturating well on room air. cc:: cc: Catherine Cates DO Review of Systems Review of Systems Narrative Review of Systems: General appearance: NO weight change, YES fatigue, NO weakness, NO fever, NO chills, NO night sweats, No cough Skin: NO rash, NO itching, NO sores, NO moles HEENT: NO Trauma, NO nausea, NO vomiting, NO visual changes, NO blurry vision, NO double vision, NO tinnitus, NO vertigo, NO ear discharge, NO rhinorrhea, NO stuffiness, NO sneezing, NO allergy, NO epistaxis. NO Hoarseness, NO sore throat, NO swollen neck. Cardiac: NO Palpitations, NO dyspnea on exertion, NO orthopnea, NO paroxysmal nocturnal dyspnea, NO edema Respiratory: NO Shortness of Breath, NO Wheezing, NO Cough, NO Sputum, NO hemoptysis GI:NO appetite, NO nausea, NO vomiting, NO dysphagia, NO changes in bowel frequency, NO stool color, NO diarrhea, NO constipation, NO hemetemesis, NO hemorrhoids, NO melena, NO hematechezia, NO abdominal pain, NO jaundice Renal: NO frequency, NO hesitancy, NO urgency, NO hematuria, NO nocturia, NO incontinence MSK: NO muscle weakness, NO gout, NO arthritis, NO muscle stiffness Neuro: NO headaches, NO tremors, NO weakness, NO paralysis, NO seizures, NO loss of consciousness, NO numbness. Hem: NO anemia, NO easy bruising/bleeding, NO petechiae, NO purpura Endo: NO heat/cold intolerance, NO excessive sweating, NO polyuria, NO polydipsia, NO polyphagia, NO thyroid problems, NO diabetes Pysch: NO mood, NO anxiety, NO depression Exam Vital Signs Temp Pulse Resp BP Pulse Ox O2 Del Method O2 Flow Rate 97.1 F 74 18 110/57 L 99 Room Air 3 04/26/25 12:04/26/25 12:04/26/25 12:04/26/25 12:04/26/25 12:04/26/25 12:04/25/25 16:35 Narrative Exam General Appearance: Alert & Oriented X3, male who is lying in bed in no acute distress HEENT: Skull symmetrical and atraumatic. Conjunctivae pale pink and moist. Pupils equal, round, reactive to light and accommodation (PERRL). Cardio: Normal Rate and Rhythm with S1 and S2 heart sounds. No murmurs or extra heart sounds auscultated. No bruits on carotid auscultation. No peripheral edema or cyanosis. Lungs: Symmetric with good expansion. Chest and back non-tender. Breath sounds vesicular without crackles, wheezing or rhonchi Abdomen: Non-tender, Distended, Normal Reactive Bowel Sounds Neuro: Alert, cooperative, oriented to person, place, and time. Speech clear. CN grossly intact. Upper motor strength 5/5 and Lower motor strength 5/5. Sensation intact. Results Labs 04/26/25 04:20 04/26/25 04:20 Labs: Short CBC 04/26/25 Range/Units 04:20 WBC 1.9 L (3.8-10.6) Thou/mm3 Hgb 8.3 L (13.5-16.0) g/dL Hct 25.3 L (41.0-53.0) % Plt Count 26 L* D (140-440) Thou/mm3 BMP 04/26/25 04:20 Sodium 136 Potassium 3.2 L Chloride 100 Carbon Dioxide 25.7 BUN 9 Creatinine 1.3 Glucose 97 Calcium 7.7 L Liver Function 04/26/25 Range/Units 04:20 Total Bilirubin 3.6 H D (0.3-1.2) mg/dL AST 32 (0-34) U/L ALT 19 (10-49) U/L Alkaline Phosphatase 93 (46-116) U/L Albumin 2.4 L (3.4-4.8) gm/dL Quality Measures Quality Measures none Advance care planning discussed with:: patient Medications Home Medications and Allergies Home Medications ?Medication ?Instructions ?Recorded ?Confirmed ?Type lactulose 20 gram/30 mL oral 30 g PO BID 06/13/2408/06 History solution pantoprazole 40 mg tablet,delayed 40 mg PO BID 08/28/24 History release propranolol 10 mg tablet 10 mg PO TID 06/13/24 History rifaximin 550 mg tablet (Xifaxan) 550 mg PO BID 08/28/24 History Allergies Allergy/AdvReac Type Severity Reaction Status Date / Time aspirin Allergy Severe GI bleed Verified 04/24/25 08:35 Visit Medications Acetaminophen (Acetaminophen 325 Mg Tablet) 650 mg PO Q6H PRN PRN Reason: Fever >100.3 OR PAIN 1-3 Stop: 05/24/25 13:55 Bumetanide (Bumetanide Inj 0.25 Mg/Ml Vial 4 Ml) 2 mg IVP BIDD [facility] Stop: 05/24/25 17:59 Last Admin: 04/26/25 05:58 Dose: 2 mg Ceftriaxone Sodium/Dextrose (Rocephin/D5w 1gm Iv Premix) 1 gm in 50 mls @ 100 mls/hr IV QDAY [facility] Stop: 05/01/25 15:45 Last Infusion: 04/26/25 09:50 Dose: Infused Octreotide Acetate 1,000 mcg/ (Sodium Chloride) 102 mls @ 5.1 mls/hr IV .Q20H [facility]; Protocol Stop: 04/30/25 08:06 Last Admin: 04/26/25 11:07 Dose: 50 mcg/hr, 5.1 mls/hr Magnesium Sulfate (Magnesium Sulfate Ivpb) 4 gm in 50 mls @ 12.5 mls/hr IV X1 ONE Stop: 04/26/25 14:20 Last Infusion: 04/26/25 11:46 Dose: 12.5 mls/hr Lactulose (Lactulose Syrup 20 Gm/30 Ml Udc) 30 gm PO BID [facility]; Protocol Stop: 05/24/25 20:59 Last Admin: 04/26/25 09:20 Dose: 30 gm Pantoprazole Sodium (Pantoprazole Inj 40 Mg Vial) 40 mg IVP BID [facility] Stop: 05/25/25 08:59 Last Admin: 04/26/25 09:20 Dose: 40 mg Spironolactone (Spironolactone 25 Mg Tablet) 25 mg PO BIDD [facility] Stop: 05/24/25 17:59 Last Admin: 04/26/25 05:58 Dose: 25 mg Discontinued Medications Benzocaine (Benzocaine 20% (Hurricaine) [place] 1 Dose) 0 dose TOP X1 ONE Stop: 04/25/25 16:28 Bumetanide (Bumetanide Inj 0.25 Mg/Ml Vial 4 Ml) 1 mg IVP BIDD [facility] Stop: 05/24/25 17:59 Dextrose (Dextrose 50%-Water Inj 50 Ml Syringe) 50 ml IV X1 ONE Stop: 04/25/25 07:28 Last Admin: 04/25/25 08:08 Dose: 50 ml Diphenhydramine HCl (Diphenhydramine Inj 50 Mg/Ml Vial) 25 mg IVP [id number] PRN PRN Reason: MODERATE SEDATION Stop: 04/25/25 18:27 Fentanyl Citrate (Fentanyl Cit Inj 50 Mcg/Ml Amp 2ml) 50 mcg IVP Q2M PRN PRN Reason: MODERATE SEDATION Stop: 04/25/25 18:27 Octreotide Acetate 1,000 mcg/ (Sodium Chloride) 102 mls @ 5.1 mls/hr IV .Q20H ONE; Protocol Stop: 04/25/25 07:36 Last Admin: 04/24/25 17:47 Dose: 50 mcg/hr, 5.1 mls/hr Pantoprazole Sodium (Protonix/Ns 80mg Iv Premix) 80 mg in 100 mls @ 400 mls/hr IV X1 ONE Stop: 04/24/25 11:52 Last Infusion: 04/24/25 12:30 Dose: Infused Pantoprazole Sodium (Protonix/Ns 80mg Iv Premix) 80 mg in 100 mls @ 10 mls/hr IV X1 ONE Stop: 04/24/25 21:52 Last Admin: 04/24/25 19:11 Dose: 10 mls/hr Potassium Chloride (Kcl Ivpb) 10 meq in 100 mls @ 100 mls/hr IV Q1H LATRICE Stop: 04/24/25 15:44 Last Admin: 04/24/25 17:48 Dose: 100 mls/hr Magnesium Sulfate (Magnesium Sulfate Ivpb) 4 gm in 50 mls @ 12.5 mls/hr IV X1 ONE Stop: 04/25/25 18:29 Last Admin: 04/25/25 14:52 Dose: 12.5 mls/hr Sodium Chloride (Ns) 100 mls @ 100 mls/hr IV X1 ONE Stop: 04/25/25 17:27 Albumin Human (Albuminar-25 Ivpb) 12.5 gm in 50 mls @ 50 mls/hr IV X1 ONE Stop: 04/26/25 08:31 Last Admin: 04/26/25 09:57 Dose: 50 mls/hr Magnesium Oxide (Magnesium Oxide 400 Mg Tablet) 400 mg PO X1 ONE Stop: 04/26/25 11:38 Last Admin: 04/26/25 12:36 Dose: 400 mg Midazolam HCl (Midazolam Inj 1 Mg/Ml Vial 2 Ml) 2 mg IVP Q2M PRN PRN Reason: Moderate Sedation Stop: 04/25/25 18:27 Octreotide Acetate (Octreotide Acet Inj 50 Mcg/Ml Vial) 50 mcg IV X1 ONE Stop: 04/24/25 11:38 Last Admin: 04/24/25 12:09 Dose: 50 mcg Potassium Chloride (Potassium Chloride 20 Meq Tabcr) 40 meq PO X1 ONE Stop: 04/24/25 14:03 Last Admin: 04/24/25 17:49 Dose: 40 meq Potassium Chloride (Potassium Chloride 20 Meq Tabcr) 40 meq PO X1 ONE Stop: 04/25/25 07:28 Last Admin: 04/25/25 08:10 Dose: 40 meq Potassium Chloride (Potassium Chloride 20 Meq Tabcr) 40 meq PO X1 ONE Stop: 04/26/25 07:31 Last Admin: 04/26/25 09:19 Dose: 40 meq Potassium Chloride (Potassium Chloride 20 Meq Tabcr) 40 meq PO X1 ONE Stop: 04/26/25 12:01 Last Admin: 04/26/25 11:08 Dose: 40 meq Assessment & Plan Plan Patient is a 64-year-old male with a past medical history of hyperlipidemia, history of paroxysmal atrial fibrillation currently rate controlled-given thrombocytopenia and cirrhosis, decompensated cirrhosis status post TIPS, grade 1 esophageal varices, hypertensive portal gastropathy with mucosal oozing, and pancytopenia, and history of frequent PRBC transfusions. Patinet admitted for acute on chronic anemia, likely Upper GI loss. #History of paroxysmal atrial fibrillation, rate controlled Patient has a past medical history of atrial fibrillation which on admission patient was rate controlled in sinus rhythm. No beta-blockers on board. [id number]: 1 HASBLED 4 Points Plan - rate control with Propranolol 10 mg TID - Follow-up with cardiology upon discharge, scheduled appointment on 04/27/2025, for Holter monitor - No Eliquis in view of his severe anemia requiring transfusions and varices #Acute on Chronic Anemia, likely upper GI bleed #s/p EGD Grade I Esophageal Varices (04/25/2025) #Hypertensive Portal Gastropathy w/ mucosal oozing #Upper GI Bleed #s/p TIps Patient arrived with acute on chronic anemia likely secondary to upper GI bleed given esophageal varices and portal gastropathy w/ mucosal ozzing s/p EGD on 04/25/2025. Plan -Known patinet to GI, Dr. Koch following -Recommendationof Daily octreotide for 24 hours, patient declined -Patient will require close follow up . #Decompensated end stage cirrhosis, secondary to alcohol use disorder #Cirrhosis, secondary to alcohol use #s/p TIPs Past medical history of cirrhosis given alcohol use disorder. Continue home medication upon discharge, under GI managment Last echo August 2024 Normal LV size and function. Estimated EF 55-60%. Diastolic dysfunction indeterminate. Mild RV dilatation. Normal RV function. Estimated RVSP 35mmHg. Mild LA dilatation Mild AV stenosis, mean gradient 16mmHg, vmax 2.8m/s. Mild MAC. Mild MR, TR. Trace AI. Plan -Bumex 2 mg BID -Spironolactone 25 mg BID -Propranolol 10 mg TID -Lactulose #Pancytopenia Likely in the setting of cirrhosis. Plan - Continue to monitor for signs of infection - Continue to monitor hemoglobin hematocrit given history of anemia #CHEL, resolved #History of hepatic Encephalopathy #History of HLD -none, cirrhosis Health Maintenance: Disp: Pt is currently admitted to floors for further management of acute on chronic upper GI loss/anemia, cardiology consulted given past medical history of Atrial Fibrillation FEN: low salt diet DVT: None Code: DNR - The patient's plan was discussed with attending Dr. Aissatou An MD PGY1 Internal Medicine Attending Provider Attestation/Addendum I have personally seen and examined the patient separately on the above date of service and discussed the plan of care with the resident. I reviewed the resident Dr. Georgette An consultation progress note and agree with the resident findings and plan in the note above and have also edited the documentation to reflect my findings and plan. Charanjit Reyez M.D. Interventional Cardiology
--- NOTE | 2025-04-26 15:35 | PC.SS ---
Jorge Isaac is 64 year old male admitted to [facility] for UGI Bleed. SS conducted bedside contact with the patient to complete initial assessment and to discuss discharge planning.? SW used all precautionary measures to complete initial. Role and reason for the contact was explained to Jorge. Pt is alert and oriented times 4. Patient confirmed demographic information address correct on facesheet. Pt lives alone but family lives next door. Patient identifies Bindu Isaac, mother, as his surrogate decision maker. Pt states prior to hospitalization he is able to complete all ADL?s independently. Pt does not use DME nor O2. Pt confirmed no history of mental health or substance abuse; when pressed pt denied any use and did not want community resources. Pts PCP is Arlette Koch, last seen on , April 23. Pharmacy of [facility]. [facility] discussed, pt not receptive. Pt is not open to HH. Discharge options discussed and the pt will return home. Pt plans to drive himself as his car is in the parking lot. No further intervention required at this time, social work case manager would be available to address any further concerns. DC Plan: Home Contact: mother Brennan, Address: Confirmed on face sheet PCP: Arlette Koch
--- NOTE | 2025-04-26 15:56 | ESDS_ITS ---
<Statement entered by Catherine Cates DO - 04/27/25 07:51> I, Catherine Cates DO, attest that I was physically present for the zaragoza portions of the service and evaluated the patient with the resident and I reviewed and discussed the case with the resident and agree with the resident's findings and plans of care as documented above Planned Discharge Date 04/26/25 DS: Providers Provider Date of admission: 04/24/25 13:56 Primary care physician: Arlette Koch MD Admitting Provider: Catherine Cates DO Attending Provider on Admission: Catherine Cates DO Consults: 04/24/25 11:45 Consult to Gastroenterology Stat Comment: Consulting Provider: Arlette Koch 04/25/25 16:46 Consult to Cardiology Routine Comment: Consulting Provider: Charanjit Reyez Attending Provider on DC: Pako Dumont MD Discharging Provider: Pako Dumont MD DS: Diagnosis Problem List Completed Was Problem List Reviewed/Reconciled?: Yes Hospital Course Hospital Course Hospital course: A 63 year old male with significant past medical history of atrial fibrillation not on anticoagulation, alcoholic liver cirrhosis s/p TIPS, end-stage liver disease, GI bleeds, ascites, hyperlipidemia, s/p umbilical hernia surgery recurrent hospitalizations for GI bleed and hepatic encephalopathy was referred to our hospital in view of low hemoglobin Hospital course: Vitals are stable except for mild tachycardia. Labs at the time of admission are significant for WBC 2, Hb 6.3, platelets 44, INR 1.4, sodium 131, potassium 2.8, chloride 97, creatinine 1.4, total bilirubin 2.8, AST 35. Patient was started on octreotide and pantoprazole drip. 2 PRBC transfusions are given. Consulted farm agent, Dr. Koch and UGI Endoscopy is done that showed Grade I Esophageal varices and portal hypertensive Gstropathy. Patient is treated with antibiotics, diuretics during the hospital stay Patient is discharged to home with the following medications and recommendations -Follow-up with PCP within 1 week of discharge. If you do not have appointment, please follow-up with the [facility] with Dr. Dumont. Call [phone] to make an appointment. -Follow up with Dr. Reyez tomorrow for Holter monitoring. [address] [place] [address] -Recommended to follow up with Dr. Koch within 2 weeks of discharge -Continue rest of the home medications as prescribed -Recommended salt and fluid restriction. -Return to ED if symptoms persist or return # Acute blood loss anemia # Melena, varices # CKD, likely hepatorenal syndrome, stage IIIa # Hypokalemia # History of decompensated cirrhosis s/p TIPS # Hyperbilirubinemia # Coagulopathy #2/2 chronic alcohol abuse, stooped now # History of hepatic encephalopathy #History of paroxysmal atrial fibrillation # Leukopenia # Thrombocytopenia # History of hyperlipidemia Patient plan of care was discussed with the attending physician, Dr. Loan Dumont, PGY1 Time Spent with Patient Time attestation: Total time spent providing and/or coordinating discharge services: Time spent: Greater than 30 minutes Exam Vital Signs Temp Pulse Resp BP Pulse Ox O2 Del Method O2 Flow Rate 97.1 F 74 18 110/57 L 99 Room Air 3 04/26/25 12:04/26/25 12:04/26/25 12:04/26/25 12:04/26/25 12:04/26/25 12:04/25/25 16:35 Narrative Exam General: Awake. HEENT: Normocephalic, atraumatic, mucous membranes moist. Heart: Regular rate and rhythm, pansystolic murmur heard in all 4 areas. Lungs: Clear to auscultation with no wheezing or crackles. Abdomen: Soft, nondistended, nontender, positive bowel sounds. No guarding or rebound tenderness. Noted umbilical hernia. Noted midline incision below the umbilicus Neurologic: Alert and oriented x3, no gross neurological deficit, and patient able to move all 4 extremities. Extremities: Bilateral 2+ pitting pedal edema extending up to the knees, appears chronic in the setting of skin thickening and induration Skin: No rash or ecchymoses. Discharge Plan Plan Patient Disposition: HOME (Self Care) Patient condition on transfer: Stable Care Plan Goals: -Follow-up with PCP within 1 week of discharge. If you do not have appointment, please follow-up with the [facility] with Dr. Dumont. Call [phone] to make an appointment. -Follow up with Dr. Reyez tomorrow for Holter monitoring. [address], [place], -Recommended to follow up with Dr. Koch within 2 weeks of discharge -Continue rest of the home medications as prescribed -Recommended salt and fluid restriction. -Return to ED if symptoms persist or return Prescriptions/Referrals Prescriptions/Med Rec: Continued bumetanide 1 mg Tablet 2 mg PO BID 30 Days Qty: 120 0RF spironolactone 25 mg Tablet 25 mg PO BID 30 Days Qty: 240 0RF propranolol 10 mg Tablet 10 mg PO TID pantoprazole 40 mg Tablet,Delayed Release (Dr/Ec) 40 mg PO BID Xifaxan 550 mg Tablet 550 mg PO BID lactulose 20 gram/30 mL Solution 30 g PO BID Referrals: Charanjit Reyez MD [Physician] - Arlette Koch MD [Primary Care Provider] - Patient/Caregiver Discharge Instructions Education Materials: Tests for Liver Disease, Thrombocytopenia, Upper GI Endoscopy, Treating Cirrhosis, Taking a Diuretic Print Language: Slovak Stand Alone Forms: Pam Award Info., Patient Portal Info Letter Discharge Order Discharge Orders: Discharge (Routine); Ordered 04/26/25 Ordered By: Pako Dumont Quality Discharge Quality Measures VTE prophylaxis
--- NOTE | 2025-04-26 17:08 | ESPR_ITS ---
Documentation for date of: 04/26/25 Subjective Subjective Interval history: Late entry for the note Case discussed with internal medicine team I want to keep the patient here for further octreotide infusion however he is adamant of going home Discharge the patient home Follow-up as outpatient in 2 weeks Exam Vital Signs Temp Pulse Resp BP Pulse Ox O2 Del Method O2 Flow Rate 97.1 F 74 18 110/57 L 99 Room Air 3 04/26/25 12:00 04/26/25 12:00 04/26/25 12:00 04/26/25 12:00 04/26/25 12:00 04/26/25 12:00 04/25/25 16:35 Objective Labs 04/26/25 04:20 04/26/25 04:20 Labs: Laboratory Results - last 24 hr 04/26/25 04/26/25 04:20 08:21 WBC 1.9 L RBC 3.06 L Hgb 8.3 L Hct 25.3 L MCV 83 MCH 27.1 MCHC 32.8 RDW Std Deviation 50.1 H Plt Count 26 L* D Neut % (Auto) 38 Lymph % (Auto) 20 [place] % (Auto) 22 H Eos % (Auto) 18 H Baso % (Auto) 2 Neut # (Auto) 0.7 L Lymph # (Auto) 0.4 L [place] # (Auto) 0.4 Eos # (Auto) 0.4 Baso # (Auto) 0.0 Immature Gran # (Auto) 0.02 H Absolute Nucleated RBC 0.00 Immature Gran % 1 H Nucleated RBC % 0 Smear Path Review Sent to Pathologist Sodium 136 Potassium 3.2 L Chloride 100 Carbon Dioxide 25.7 Anion Gap 10 BUN 9 Creatinine 1.3 Estim Creat Clear Calc Not Performed. eGFR > 60 BUN/Creatinine Ratio 7 L Glucose 97 Calculated Osmolality 270 L Calcium 7.7 L Corrected Calcium 9.0 Magnesium 1.5 L Total Bilirubin 3.6 H D AST 32 ALT 19 Alkaline Phosphatase 93 Total Protein 4.9 L Albumin 2.4 L Globulin 2.5 Albumin/Globulin Ratio 1.0 L Misc Test Result Platelets confirmed Impressions Impression: Hypertensive portal gastropathy with mucosal oozing of blood Okay to discharge patient home to be followed by me as an outpatient Assessment & Plan A&P Narrative # Occult GI bleeding most likely due to hypertensive portal gastropathy with mucosal oozing of blood Plan Octreotide infusion 50 mcg/h IV Protonix Transfused 2 units of PRBCs Serial CBC consent obtained for fiberoptic esophagogastroduodenoscopy with possible therapeutic intervention under intravenous moderate sedation Other medical problems include Anasarca recommend IV Bumex drip at 0.5 mg/h or 1 mg every 12 Daily weight 1 L p.o. physician in 24 hours Thank you very much for the opportunity to participate in the care of this patient Time Spent With Patient Time: Total time spent is greater than 50% in coordination of care (as documented) at patient's floor/unit and/or counseling patient:
== END 2025-04-26 13:44 | disposition home or self-care (01) | DRG 432 ==
LOC: SERX 11:45 → SERHOLD 14:49 → S2NX 16:24 → S3SX 04-25 23:47
PROVIDERS: Nurse Practitioner Primary Care; Admitting Provider Internal Medicine; Emergency Provider Emergency Medicine; PCP Specialist; Visit Provider Internal Medicine
PROC: (CPT 43239; principal; 2025-04-25 16:00)
DX: K70.31 Alcoholic cirrhosis of liver with ascites (principal); I85.11 Secondary esophageal varices with bleeding; K76.7 Hepatorenal syndrome; K76.6 Portal hypertension; D62 Acute posthemorrhagic anemia; D68.9 Coagulation defect, unspecified; K31.89 Other diseases of stomach and duodenum; E87.6 Hypokalemia; N18.31 Chronic kidney disease, stage 3a; I48.0 Paroxysmal atrial fibrillation; D69.6 Thrombocytopenia, unspecified; R60.0 Localized edema; E78.5 Hyperlipidemia, unspecified; R00.0 Tachycardia, unspecified; D72.819 Decreased white blood cell count, unspecified; F10.20 Alcohol dependence, uncomplicated; K72.10 Chronic hepatic failure without coma; Z66 Do not resuscitate; Z88.6 Allergy status to analgesic agent
CPT/HCPCS: 36415; 80053; 83735; 84443; 85014; 85018; 85025; 85610; 85730; 86850; 86900; 86901; 86923; 93225; 96365; 96367; 99291; J0696; J1200; J2250; J2354; J2470; J3010; J3475; J3480; J3490; J7050; P9016; P9047; A9270

== ENCOUNTER → 2025-05-06 | Outpatient (CLI) | payer MEDICARE, MEDICAID, SELFPAY ==
[2025-05-06 09:39] LABS: Basophils # (Auto) 0.0 Thou/mm3 (0.0-0.2); Basophils % (Auto) 1 % (0-2.5); Eosinophils # (Auto) 0.3 Thou/mm3 (0.0-0.5); Eosinophils % (Auto) 15 % (0-10); Hematocrit 26.4 % (41.0-53.0); Immature Granulocytes Auto 0.01 Thou/mm3 (0.00-0.00); Lymphocytes # (Auto) 0.3 Thou/mm3 (1.0-4.8); Lymphocytes % (Auto) 20 % (10-50); Mean Corpuscular HGB Conc 32.6 g/dl (31.0-37.0); Mean Corpuscular Hemoglobin 27.8 pg (25.0-35.0); Mean Corpuscular Volume 85 fL (80-100); Monocytes # (Auto) 0.2 Thou/mm3 (0.0-0.8); Monocytes % (Auto) 12 % (0-12); Neutrophils # (Auto) 0.9 Thou/mm3 (1.8-7.7); Neutrophils % (Auto) 51 % (37-80); Nucleated Red Blood Cell # 0.00 Thou/mm3 (0.00-0.00); Nucleated Red Blood Cell % 0 /100 WBC (0); RDW Standard Deviation 55.4 fL (35.1-43.9); Red Blood Count 3.09 Miln/mm3 (4.50-5.90)
[2025-05-06 09:57] LABS: Alanine Aminotransferase 19 U/L (10-49); Albumin, Serum 2.7 gm/dL (3.4-4.8); Albumin/Globulin Ratio 0.9 (1.2-2.2); Alkaline Phosphatase 104 U/L (46-116); Anion Gap 6 (7-16); Aspartate Amino Transferase 31 U/L (0-34); BUN/Creatinine Ratio 9 Ratio (12-20); Bilirubin,Total 3.4 mg/dL (0.3-1.2); Blood Urea Nitrogen 14 mg/dL (9-23); Calcium 8.1 mg/dL (8.3-10.6); Calcium (Corrected) 9.1 mg/dL (8.5-10.1); Carbon Dioxide 27.9 mMol/L (20.0-31.0); Chloride 100 mMol/L (98-107); Creatinine (Component) 1.6 mg/dL (0.6-1.3); Globulin 2.9 gm/dL (2.3-3.5); Glucose 186 mg/dL (74-106); Osmolality,Calculated 273 (275-295); Potassium 3.3 mMol/L (3.4-5.1); Sodium 134 mMol/L (136-145); Total Protein 5.6 gm/dL (5.7-8.2); eGFR 47 See Note
[2025-05-06 10:01] LABS: Hemoglobin 8.6 g/dL (13.5-16.0); Platelet Count 48 Thou/mm3 (140-440); White Blood Count 1.7 Thou/mm3 (3.8-10.6)
[2025-05-06 11:22] LABS: Slide Review Platelets confirmed
== END | disposition home or self-care (01) ==
LOC: COPL 08:37
PROVIDERS: PCP Specialist; Referring Provider Specialist; Visit Provider Specialist
DX: K20.90 Esophagitis, unspecified without bleeding (principal); K76.6 Portal hypertension
CPT/HCPCS: 36415; 80053; 85025

== ENCOUNTER → 2025-06-09 | Outpatient (CLI) | payer MEDICARE, MEDICAID, SELFPAY ==
[2025-06-09 13:03] LABS: Basophils # (Auto) 0.0 Thou/mm3 (0.0-0.2); Basophils % (Auto) 1 % (0-2.5); Eosinophils # (Auto) 0.4 Thou/mm3 (0.0-0.5); Eosinophils % (Auto) 18 % (0-10); Hematocrit 24.2 % (41.0-53.0); Immature Granulocytes Auto 0.01 Thou/mm3 (0.00-0.00); Lymphocytes # (Auto) 0.4 Thou/mm3 (1.0-4.8); Lymphocytes % (Auto) 18 % (10-50); Mean Corpuscular HGB Conc 32.2 g/dl (31.0-37.0); Mean Corpuscular Hemoglobin 28.7 pg (25.0-35.0); Mean Corpuscular Volume 89 fL (80-100); Monocytes # (Auto) 0.3 Thou/mm3 (0.0-0.8); Monocytes % (Auto) 14 % (0-12); Neutrophils # (Auto) 1.1 Thou/mm3 (1.8-7.7); Neutrophils % (Auto) 49 % (37-80); Nucleated Red Blood Cell # 0.00 Thou/mm3 (0.00-0.00); Nucleated Red Blood Cell % 0 /100 WBC (0); RDW Standard Deviation 58.1 fL (35.1-43.9); Red Blood Count 2.72 Miln/mm3 (4.50-5.90)
[2025-06-09 13:09] LABS: Hemoglobin 7.8 g/dL (13.5-16.0); Platelet Count 53 Thou/mm3 (140-440); White Blood Count 2.3 Thou/mm3 (3.8-10.6)
[2025-06-09 13:31] LABS: Slide Review Platelets confirmed
[2025-06-09 13:33] LABS: Alanine Aminotransferase 25 U/L (10-49); Albumin, Serum 2.8 gm/dL (3.4-4.8); Albumin/Globulin Ratio 1.1 (1.2-2.2); Alkaline Phosphatase 105 U/L (46-116); Anion Gap 9 (7-16); Aspartate Amino Transferase 44 U/L (0-34); BUN/Creatinine Ratio 12 Ratio (12-20); Bilirubin,Total 2.9 mg/dL (0.3-1.2); Blood Urea Nitrogen 18 mg/dL (9-23); Calcium 8.0 mg/dL (8.3-10.6); Calcium (Corrected) 9.0 mg/dL (8.5-10.1); Carbon Dioxide 27.5 mMol/L (20.0-31.0); Chloride 99 mMol/L (98-107); Creatinine (Component) 1.5 mg/dL (0.6-1.3); Globulin 2.6 gm/dL (2.3-3.5); Glucose 129 mg/dL (74-106); Osmolality,Calculated 274 (275-295); Potassium 2.8 mMol/L (3.4-5.1); Sodium 135 mMol/L (136-145); Total Protein 5.4 gm/dL (5.7-8.2); eGFR 51 See Note
== END | disposition home or self-care (01) ==
PROVIDERS: PCP Specialist; Referring Provider Specialist; Visit Provider Specialist
DX: K20.90 Esophagitis, unspecified without bleeding (principal); K76.6 Portal hypertension
CPT/HCPCS: 36415; 80053; 85025

== ENCOUNTER 2025-07-15 12:58 | Emergency (ER) | payer MEDICARE, MEDICAID, SELFPAY ==
[2025-07-15] VITALS (9 sets, daily range): BP systolic 108–130; BP diastolic 48–67; PULSE 84–102; RESP 15–20; TEMP 36.7–37.2; O2SAT 98–100
--- NOTE | 2025-07-15 13:06 | PD.EDRME ---
Rapid Medical Screening Exam RME Arrival date/time: 07/15/25 12:58 64-year-old male presents to the emergency department today requesting blood transfusion Chief Complaint: General Adult/Misc Complain
--- NOTE | 2025-07-15 19:06 | PD.EDADULT ---
ED General RME/HPI General Chief complaint: General Adult/Misc Complain Stated complaint: BLOOD TRANSFUSION Time Seen by Provider: 07/15/25 14:31 Arrival date/time: 07/15/25 12:58 RME / HPI RME / HPI narrative: 64-year-old male patient with significant history of liver cirrhosis, status post TIPS procedure, in [facility] last month came in for evaluation regarding severe anemia requiring blood transfusion. Patient had follow-up with GI specialist on-call, and CBC was done earlier this morning and was noted to have a hemoglobin of 6.3. Patient was advised to go to the emergency room for blood transfusion. Patient is denying any abdominal pain denies any chest pain denies any vomiting blood or blood in the stool. Patient told me that the last time he had a blood transfusion was about 12 weeks ago. Related Data Home Medications ?Medication ?Instructions ?Recorded ?Confirmed lactulose 20 gram/30 mL oral 30 g PO BID 06/13/24 08/28/24 solution pantoprazole 40 mg tablet,delayed 40 mg PO BID 06/13/24 08/28/24 release propranolol 10 mg tablet 10 mg PO TID 06/13/24 08/28/24 rifaximin 550 mg tablet (Xifaxan) 550 mg PO BID 06/13/24 08/28/24 Previous Rx's ?Medication ?Instructions ?Recorded bumetanide 1 mg tablet 2 mg (2 x 1 mg) PO BID 1 month 09/02/24 #120 tabs spironolactone 25 mg tablet 25 mg PO BID 1 month #240 tabs 09/02/24 Allergies Allergy/AdvReac Type Severity Reaction Status Date / Time aspirin Allergy Severe GI bleed Verified 07/15/25 13:01 Review of Systems Review of Systems Narrative Review of Systems: Review of system reviewed and within normal limits except mentioned in HPI ED Exam Narrative Physical exam: VITAL SIGNS: Reviewed. GENERAL APPEARANCE: Alert and interactive, follows commands, no acute distress, HEAD AND FACE: Non-traumatic. ENT: PERRL, pale conjunctiva, eyelid no trauma, Mucous membrane moist. NECK: Supple, nontender, no nuchal rigidity. CHEST: No tenderness, no crepitus, no paradoxical movement, no retractions. LUNGS: Clear, well ventilated, symmetric, no rales, no wheezing, no ronchi, no stridor, good breath sounds bilaterally. HEART: Regular rate, regular rhythm, no murmur, no gallops. ABDOMEN: Soft, positive bowel sounds, nondistended, no guarding, nontender, no rebound, no masses, RECTAL: Deferred. GENITAL: Deferred. NEUROLOGICAL: Gross motor function intact sensory function intact, Appropriate for age. MUSCULOSKELETAL: low back nontender, full range of motion. EXTREMITIES: Nontender, full range of motion. Bilateral lower extremity edema +2 SKIN: Color pale, dry, no rash, no lacerations, no abrasions, no contusions. LYMPHATICS: Deferred. Course Quality Measures none Orders Category Date Time Status Insert IV NOW Care 07/15/25 13:05 Active Transfuse,blood/blood products NOW Care 07/15/25 13:05 Active Type and Screen Stat Lab 07/15/25 13:27 Results prbc [Red Blood Cells] Stat Lab 07/15/25 13:27 Results Vital Signs Vital signs: Vital Signs Temperature 98.2 F 07/15/25 13:12 Pulse Rate 102 H 07/15/25 13:12 Respiratory Rate 18 07/15/25 13:12 Blood Pressure 108/67 07/15/25 13:12 Pulse Oximetry (%) 99 07/15/25 13:12 Oxygen Delivery Method Room Air 07/15/25 13:12 Discharge Plan Plan Patient Disposition: HOME (Self Care) Discharge Disposition comment: Stable Prescriptions/Referrals Prescriptions/Med Rec: No Action bumetanide 1 mg Tablet 2 mg PO BID 30 Days Qty: 120 0RF spironolactone 25 mg Tablet 25 mg PO BID 30 Days Qty: 240 0RF propranolol 10 mg Tablet 10 mg PO TID pantoprazole 40 mg Tablet,Delayed Release (Dr/Ec) 40 mg PO BID Xifaxan 550 mg Tablet 550 mg PO BID lactulose 20 gram/30 mL Solution 30 g PO BID Referrals: Arlette Koch MD [Primary Care Provider, Gastroenterology] - In 1 week Problem List Clinical Impression: Anemia, Hx of cirrhosis Patient/Caregiver Discharge Instructions Discharge Activity: activity as tolerated Education Materials: Anemia Additional Instructions: Thank you for the opportunity for serving you today. You are stable for discharged . You are advised to: Follow-up with your PCP in 1 to 2 days Return to ED for worsening of symptoms Print Language: Telugu Stand Alone Forms: Pam Award Info., Patient Portal Info Letter PA/CHICKEN VACCINATOR Supervising Physician PRETTY Supervising Physician: MD Nereyda MDM Narrative MDM hospital course: 64-year-old male patient with significant history of liver cirrhosis, status post TIPS procedure, in [facility] last month came in for evaluation regarding severe anemia requiring blood transfusion. Patient had follow-up with GI specialist on-call, and CBC was done earlier this morning and was noted to have a hemoglobin of 6.3. Patient was advised to go to the emergency room for blood transfusion. Patient is denying any abdominal pain denies any chest pain denies any vomiting blood or blood in the stool. Patient told me that the last time he had a blood transfusion was about 12 weeks ago. Patient received 2 units of packed RBC, patient tolerated the procedure well. Patient stable for discharge Dispositon Disposition: Discharge Home
[2025-07-16 00:42] VITALS: BP 110/63; PULSE 89; RESP 18; TEMP 36.9; O2SAT 99
== END 2025-07-16 01:01 | disposition home or self-care (01) ==
PROVIDERS: Emergency Provider Emergency Medicine; PCP Specialist
DX: D64.9 Anemia, unspecified (principal); K74.60 Unspecified cirrhosis of liver
CPT/HCPCS: 36415; 36430; 86850; 86900; 86901; 86923; 99284; P9016

== ENCOUNTER → 2025-07-15 | Outpatient (CLI) | payer MEDICARE, MEDICAID, SELFPAY ==
[2025-07-15 11:28] LABS: Basophils # (Auto) 0.0 Thou/mm3 (0.0-0.2); Basophils % (Auto) 1 % (0-2.5); Eosinophils # (Auto) 0.3 Thou/mm3 (0.0-0.5); Eosinophils % (Auto) 15 % (0-10); Hematocrit 21.2 % (41.0-53.0); Immature Granulocytes Auto 0.01 Thou/mm3 (0.00-0.00); Lymphocytes # (Auto) 0.4 Thou/mm3 (1.0-4.8); Lymphocytes % (Auto) 18 % (10-50); Mean Corpuscular HGB Conc 29.7 g/dl (31.0-37.0); Mean Corpuscular Hemoglobin 26.5 pg (25.0-35.0); Mean Corpuscular Volume 89 fL (80-100); Monocytes # (Auto) 0.3 Thou/mm3 (0.0-0.8); Monocytes % (Auto) 16 % (0-12); Neutrophils # (Auto) 1.0 Thou/mm3 (1.8-7.7); Neutrophils % (Auto) 49 % (37-80); Nucleated Red Blood Cell # 0.00 Thou/mm3 (0.00-0.00); Nucleated Red Blood Cell % 0 /100 WBC (0); RDW Standard Deviation 51.8 fL (35.1-43.9); Red Blood Count 2.38 Miln/mm3 (4.50-5.90); White Blood Count 2.0 Thou/mm3 (3.8-10.6)
[2025-07-15 11:31] LABS: Hemoglobin 6.3 g/dL (13.5-16.0); Platelet Count 47 Thou/mm3 (140-440)
[2025-07-15 11:45] LABS: Alanine Aminotransferase 29 U/L (10-49); Albumin, Serum 2.5 gm/dL (3.4-4.8); Albumin/Globulin Ratio 1.0 (1.2-2.2); Alkaline Phosphatase 103 U/L (46-116); Anion Gap 9 (7-16); Aspartate Amino Transferase 31 U/L (0-34); BUN/Creatinine Ratio 15 Ratio (12-20); Bilirubin,Total 2.9 mg/dL (0.3-1.2); Blood Urea Nitrogen 21 mg/dL (9-23); Calcium 8.1 mg/dL (8.3-10.6); Calcium (Corrected) 9.3 mg/dL (8.5-10.1); Carbon Dioxide 27.9 mMol/L (20.0-31.0); Chloride 98 mMol/L (98-107); Creatinine (Component) 1.4 mg/dL (0.6-1.3); Globulin 2.6 gm/dL (2.3-3.5); Glucose 111 mg/dL (74-106); Osmolality,Calculated 274 (275-295); Potassium 3.3 mMol/L (3.4-5.1); Sodium 135 mMol/L (136-145); Total Protein 5.1 gm/dL (5.7-8.2); eGFR 55 See Note
[2025-07-15 12:40] LABS: Slide Review Platelets confirmed
== END | disposition home or self-care (01) ==
PROVIDERS: PCP Specialist; Referring Provider Specialist; Visit Provider Specialist
DX: K20.90 Esophagitis, unspecified without bleeding (principal); K76.6 Portal hypertension
CPT/HCPCS: 36415; 80053; 85025

== ENCOUNTER → 2025-08-11 | Outpatient (CLI) | payer MEDICARE, MEDICAID, SELFPAY ==
[2025-08-11 11:07] LABS: Basophils # (Auto) 0.0 Thou/mm3 (0.0-0.2); Basophils % (Auto) 1 % (0-2.5); Eosinophils # (Auto) 0.3 Thou/mm3 (0.0-0.5); Eosinophils % (Auto) 17 % (0-10); Hematocrit 22.1 % (41.0-53.0); Immature Granulocytes Auto 0.02 Thou/mm3 (0.00-0.00); Lymphocytes # (Auto) 0.4 Thou/mm3 (1.0-4.8); Lymphocytes % (Auto) 20 % (10-50); Mean Corpuscular HGB Conc 31.2 g/dl (31.0-37.0); Mean Corpuscular Hemoglobin 27.8 pg (25.0-35.0); Mean Corpuscular Volume 89 fL (80-100); Monocytes # (Auto) 0.2 Thou/mm3 (0.0-0.8); Monocytes % (Auto) 12 % (0-12); Neutrophils # (Auto) 0.9 Thou/mm3 (1.8-7.7); Neutrophils % (Auto) 48 % (37-80); Nucleated Red Blood Cell # 0.00 Thou/mm3 (0.00-0.00); Nucleated Red Blood Cell % 0 /100 WBC (0); RDW Standard Deviation 59.2 fL (35.1-43.9); Red Blood Count 2.48 Miln/mm3 (4.50-5.90); White Blood Count 1.9 Thou/mm3 (3.8-10.6)
[2025-08-11 11:10] LABS: Platelet Count 53 Thou/mm3 (140-440)
[2025-08-11 11:11] LABS: Hemoglobin 6.9 g/dL (13.5-16.0)
[2025-08-11 11:20] LABS: Alanine Aminotransferase 17 U/L (10-49); Albumin, Serum 2.7 gm/dL (3.4-4.8); Albumin/Globulin Ratio 1.0 (1.2-2.2); Alkaline Phosphatase 92 U/L (46-116); Anion Gap 11 (7-16); Aspartate Amino Transferase 26 U/L (0-34); BUN/Creatinine Ratio 12 Ratio (12-20); Bilirubin,Total 2.6 mg/dL (0.3-1.2); Blood Urea Nitrogen 20 mg/dL (9-23); Calcium 8.4 mg/dL (8.3-10.6); Calcium (Corrected) 9.4 mg/dL (8.5-10.1); Carbon Dioxide 27.3 mMol/L (20.0-31.0); Chloride 98 mMol/L (98-107); Creatinine (Component) 1.7 mg/dL (0.6-1.3); Globulin 2.6 gm/dL (2.3-3.5); Glucose 126 mg/dL (74-106); Osmolality,Calculated 276 (275-295); Sodium 136 mMol/L (136-145); Total Protein 5.3 gm/dL (5.7-8.2); eGFR 44 See Note
[2025-08-11 11:36] LABS: Potassium 2.6 mMol/L (3.4-5.1)
[2025-08-11 11:41] LABS: Slide Review Platelets confirmed
== END | disposition home or self-care (01) ==
PROVIDERS: PCP Specialist; Referring Provider Specialist; Visit Provider Specialist
DX: K20.90 Esophagitis, unspecified without bleeding (principal); K76.6 Portal hypertension
CPT/HCPCS: 36415; 80053; 85025

== ENCOUNTER 2025-08-13 07:42 | Emergency (ER) | payer MEDICARE, MEDICAID, SELFPAY ==
[2025-08-13] VITALS (26 sets, daily range): BP systolic 103–119; BP diastolic 43–55; PULSE 68–87; RESP 13–19; TEMP 36.3–36.9; O2SAT 93–100; BMI 26.2
--- NOTE | 2025-08-13 08:26 | PD.EDADULT ---
ED General RME/HPI General Chief complaint: General Adult/Misc Complain Stated complaint: SENT BY PMD FOR BLOOD TRANSFUSION Time Seen by Provider: 08/13/25 08:07 Source: patient Arrival date/time: 08/13/25 07:42 Mode of arrival: ambulatory Limitations: no limitations RME / HPI RME / HPI narrative: 64 year old male with history of anemia presents to the ED referred by Dr. Koch for low hemoglobin today. Patient states about 4 days ago he underwent oral surgery and persistently bleeding from gums. Patient states he consulted with his PCP who performed labs yesterday and called today stating his hemoglobin was 6.9 and sent here for blood transfusion. Patient has no other associated symptoms or complaints. Denies shortness of breath or feeling light headed. MD complaint: Patient is a 64-year-old male with a history of cirrhosis. Onset (ago): day(s) Location: mouth Radiation: non-radiation Severity: moderate Severity scale (1-10): 10 Quality: aching Consistency: constant Relieving factors: none Exacerbating factors: none Associated symptoms: denies other symptoms Related Data Home Medications ?Medication ?Instructions ?Recorded ?Confirmed lactulose 20 gram/30 mL oral 30 g PO BID 06/13/24 08/28/24 solution pantoprazole 40 mg tablet,delayed 40 mg PO BID 06/13/24 08/28/24 release propranolol 10 mg tablet 10 mg PO TID 06/13/24 08/28/24 rifaximin 550 mg tablet (Xifaxan) 550 mg PO BID 06/13/24 08/28/24 Previous Rx's ?Medication ?Instructions ?Recorded bumetanide 1 mg tablet 2 mg (2 x 1 mg) PO BID 1 month 09/02/24 #120 tabs spironolactone 25 mg tablet 25 mg PO BID 1 month #240 tabs 09/02/24 Allergies Allergy/AdvReac Type Severity Reaction Status Date / Time aspirin Allergy Severe GI bleed Verified 08/13/25 07:45 Review of Systems Review of Systems Systems Reviewed: All systems reviewed, normal except as documented Past Medical History Past Medical History CARDIAC: Positive Cardiac Disorders, Atrial Fibrillation, Heart Murmur, Edema, Cellulitis and Hypertension GASTROINTESTINAL: Positive Gastrointestinal Disorders, Cirrhosis, Gastrointestinal Bleed, Esophageal Varices, Obstructive Bowel and Gastroesophageal Reflux Disease MUSCULOSKELETAL: Positive Fractures HEMATOLOGIC: Positive Blood Disorders and Anemia OTHER HISTORY: Positive Hospitalization, Falls, Blood Transfusions, Chicken Pox, Measles and Mumps Family History FAMILY HISTORY: Positive Family Cancer Surgical History SURGICAL: Positive Abdominal Surgery Social History SMOKING STATUS: Never smoker SECOND HAND EXPOSURE: No SUBSTANCE USE: does not use ED Exam General Limitations: Present no limitations General appearance: Present alert and in no apparent distress Head Head exam: Present atraumatic Eye Eye exam: Present normal appearance, PERRL and EOMI ENT ENT exam: Present normal exam, normal oropharynx and mucous membranes moist Neck Neck exam: Present normal inspection, full ROM and trachea midline Chest Chest inspection: Present normal inspection and symmetric chest wall rise Respiratory Respiratory exam: Present normal lung sounds bilaterally Cardiovascular Cardiovascular exam: Present regular rate, normal rhythm and normal heart sounds Abdominal Exam Abdominal exam: Present soft and normal bowel sounds Extremities Exam Extremities exam: Present normal inspection and full ROM Back Exam Back exam: Present normal inspection and full ROM Neurological Exam Neurological exam: Present alert, oriented X3 and CN II-XII intact Psychiatric Psychiatric exam: Present normal affect and normal mood Skin Skin exam: Present warm, dry, intact and pallor Course Quality Measures none Orders Category Date Time Status Insert IV NOW Care 08/13/25 07:45 Completed Transfuse,blood/blood products NOW Care 08/13/25 08:17 Completed CBC Stat Lab 08/13/25 08:36 Completed Comprehensive Metabolic Panel Stat Lab 08/13/25 08:36 Completed Mag [Magnesium] Stat Lab 08/13/25 08:36 Completed PT [Prothrombin Time with INR] Stat Lab 08/13/25 08:36 Completed PTT [Partial Thromboplastin Time] Stat Lab 08/13/25 08:36 Completed Type and Screen Stat Lab 08/13/25 08:36 Completed prbc [Red Blood Cells] Stat Lab 08/13/25 08:36 Completed Vital Signs Vital signs: Vital Signs Temperature 98.2 F 08/13/25 08:00 Pulse Rate 87 08/13/25 08:00 Respiratory Rate 18 08/13/25 08:00 Blood Pressure 103/51 L 08/13/25 08:00 Pulse Oximetry (%) 100 08/13/25 08:00 Oxygen Delivery Method Room Air 08/13/25 08:00 Pulse ox is 100% on room air which is adequate. Discharge Plan Plan Patient Disposition: HOME (Self Care) Patient condition on transfer: Stable Prescriptions/Referrals Prescriptions/Med Rec: No Action bumetanide 1 mg Tablet 2 mg PO BID 30 Days Qty: 120 0RF spironolactone 25 mg Tablet 25 mg PO BID 30 Days Qty: 240 0RF propranolol 10 mg Tablet 10 mg PO TID pantoprazole 40 mg Tablet,Delayed Release (Dr/Ec) 40 mg PO BID Xifaxan 550 mg Tablet 550 mg PO BID lactulose 20 gram/30 mL Solution 30 g PO BID Referrals: Jayson Koch MD [Primary Care Provider] - In 1 week Problem List Clinical Impression: Anemia Patient/Caregiver Discharge Instructions Discharge Activity: activity as tolerated Education Materials: Anemia Additional Instructions: Follow-up with Dr. Koch as scheduled. Print Language: Algerian Stand Alone Forms: Pam Award Info., Patient Portal Info Letter MDM Narrative MDM hospital course (for use when minimal MDM required): Vicky Valenzuela am scribing for and in the presence of Dr. De Santiago. Clinical Information Provided by: patient Medical Records reviewed [facility] Meds/Rx considered, not ordered None Labs/Rad/Tests considered, not ordered None Chronic Illness/Social Conditions which may negatively complicate care or outcome(s)-explain: None or not applicable Labs Labs: none Imaging Imaging interpretation: none Medication Administration(s) none Diagnosis Diagnoses ruled out and/or further discussions: Anemia
[2025-08-13 09:00] LABS: Basophils # (Auto) 0.0 Thou/mm3 (0.0-0.2); Basophils % (Auto) 1 % (0-2.5); Eosinophils # (Auto) 0.3 Thou/mm3 (0.0-0.5); Eosinophils % (Auto) 17 % (0-10); Hematocrit 20.6 % (41.0-53.0); Immature Granulocytes Auto 0.02 Thou/mm3 (0.00-0.00); Lymphocytes # (Auto) 0.3 Thou/mm3 (1.0-4.8); Lymphocytes % (Auto) 18 % (10-50); Mean Corpuscular HGB Conc 31.6 g/dl (31.0-37.0); Mean Corpuscular Hemoglobin 27.5 pg (25.0-35.0); Mean Corpuscular Volume 87 fL (80-100); Monocytes # (Auto) 0.3 Thou/mm3 (0.0-0.8); Monocytes % (Auto) 15 % (0-12); Neutrophils # (Auto) 0.8 Thou/mm3 (1.8-7.7); Neutrophils % (Auto) 48 % (37-80); Nucleated Red Blood Cell # 0.00 Thou/mm3 (0.00-0.00); Nucleated Red Blood Cell % 0 /100 WBC (0); RDW Standard Deviation 59.3 fL (35.1-43.9); Red Blood Count 2.36 Miln/mm3 (4.50-5.90); White Blood Count 1.7 Thou/mm3 (3.8-10.6)
[2025-08-13 09:06] LABS: Hemoglobin 6.5 g/dL (13.5-16.0); Platelet Count 45 Thou/mm3 (140-440)
[2025-08-13 09:25] LABS: Alanine Aminotransferase 17 U/L (10-49); Albumin, Serum 2.7 gm/dL (3.4-4.8); Albumin/Globulin Ratio 1.0 (1.2-2.2); Alkaline Phosphatase 91 U/L (46-116); Anion Gap 10 (7-16); Aspartate Amino Transferase 30 U/L (0-34); BUN/Creatinine Ratio 11 Ratio (12-20); Bilirubin,Total 2.7 mg/dL (0.3-1.2); Blood Urea Nitrogen 18 mg/dL (9-23); Calcium 8.7 mg/dL (8.3-10.6); Calcium (Corrected) 9.7 mg/dL (8.5-10.1); Carbon Dioxide 28.1 mMol/L (20.0-31.0); Chloride 97 mMol/L (98-107); Creatinine (Component) 1.6 mg/dL (0.6-1.3); Estimated Creatinine Clearance 46.9 mL/min (>60); Globulin 2.6 gm/dL (2.3-3.5); Glucose 110 mg/dL (74-106); Magnesium 1.5 mg/dL (1.6-2.6); Osmolality,Calculated 273 (275-295); Potassium 2.8 mMol/L (3.4-5.1); Sodium 135 mMol/L (136-145); Total Protein 5.3 gm/dL (5.7-8.2); eGFR 47 See Note
[2025-08-13 10:48] LABS: Slide Review Platelets confirmed
[2025-08-13 11:06] LABS: INR 1.4 (0.9-1.3); Partial Thromboplastin Time 28.7 Seconds (22.0-36.0); Prothrombin Time 14.4 Seconds (9.0-12.2)
== END 2025-08-13 16:31 | disposition home or self-care (01) ==
PROVIDERS: Nurse Practitioner Primary Care; Emergency Provider Family Medicine; PCP Internal Medicine Endocrinology, Diabetes & Metabolism
DX: D64.9 Anemia, unspecified (principal)
CPT/HCPCS: 36415; 36430; 80053; 83735; 85025; 85610; 85730; 86850; 86900; 86901; 86923; 99284; P9016

== ENCOUNTER → 2025-09-08 | Outpatient (CLI) | payer MEDICARE, MEDICAID, SELFPAY ==
[2025-09-08 10:40] LABS: Basophils # (Auto) 0.0 Thou/mm3 (0.0-0.2); Basophils % (Auto) 2 % (0-2.5); Eosinophils # (Auto) 0.4 Thou/mm3 (0.0-0.5); Eosinophils % (Auto) 21 % (0-10); Hematocrit 25.6 % (41.0-53.0); Immature Granulocytes Auto 0.01 Thou/mm3 (0.00-0.00); Lymphocytes # (Auto) 0.4 Thou/mm3 (1.0-4.8); Lymphocytes % (Auto) 20 % (10-50); Mean Corpuscular HGB Conc 32.8 g/dl (31.0-37.0); Mean Corpuscular Hemoglobin 30.5 pg (25.0-35.0); Mean Corpuscular Volume 93 fL (80-100); Monocytes # (Auto) 0.3 Thou/mm3 (0.0-0.8); Monocytes % (Auto) 13 % (0-12); Neutrophils # (Auto) 0.9 Thou/mm3 (1.8-7.7); Neutrophils % (Auto) 44 % (37-80); Nucleated Red Blood Cell # 0.00 Thou/mm3 (0.00-0.00); Nucleated Red Blood Cell % 0 /100 WBC (0); RDW Standard Deviation 63.2 fL (35.1-43.9); Red Blood Count 2.75 Miln/mm3 (4.50-5.90); White Blood Count 2.0 Thou/mm3 (3.8-10.6)
[2025-09-08 10:44] LABS: Hemoglobin 8.4 g/dL (13.5-16.0); Platelet Count 49 Thou/mm3 (140-440)
[2025-09-08 10:59] LABS: Alanine Aminotransferase 22 U/L (10-49); Albumin, Serum 2.7 gm/dL (3.4-4.8); Albumin/Globulin Ratio 0.9 (1.2-2.2); Alkaline Phosphatase 106 U/L (46-116); Anion Gap 10 (7-16); Aspartate Amino Transferase 37 U/L (0-34); BUN/Creatinine Ratio 7 Ratio (12-20); Bilirubin,Total 3.9 mg/dL (0.3-1.2); Blood Urea Nitrogen 11 mg/dL (9-23); Calcium 8.6 mg/dL (8.3-10.6); Calcium (Corrected) 9.6 mg/dL (8.5-10.1); Carbon Dioxide 28.2 mMol/L (20.0-31.0); Chloride 99 mMol/L (98-107); Creatinine (Component) 1.6 mg/dL (0.6-1.3); Globulin 2.9 gm/dL (2.3-3.5); Glucose 120 mg/dL (74-106); Osmolality,Calculated 274 (275-295); Potassium 2.8 mMol/L (3.4-5.1); Sodium 137 mMol/L (136-145); Total Protein 5.6 gm/dL (5.7-8.2); eGFR 47 See Note
[2025-09-08 12:00] LABS: Slide Review Platelets confirmed
== END | disposition home or self-care (01) ==
LOC: COPL 10:04
PROVIDERS: PCP Specialist; Referring Provider Specialist; Visit Provider Specialist
DX: K20.90 Esophagitis, unspecified without bleeding (principal); K76.6 Portal hypertension
CPT/HCPCS: 36415; 80053; 85025

== ENCOUNTER 2025-10-08 10:21 | Inpatient (IN) | payer MEDICARE, MEDICAID, SELFPAY ==
[2025-10-08] VITALS (18 sets, daily range): BP systolic 84–107; BP diastolic 36–62; PULSE 69–99; RESP 13–23; TEMP 36.1–36.7; O2SAT 95–100; BMI 26.5; BMI 29.6
--- NOTE | 2025-10-08 11:22 | EKG_ITS ---
[facility] Test Date: 2025-10-08 Pat Name: ABBEY MCDONALD Department: Room: - Gender: Male [employer] Developer: : 1960 Requested By: Tim Feng Order Number: [id number] Reading MD: Tim Feng Measurements Intervals Pitman Rate: 85 P: OK: QRS: 17 QRSD: 86 T: 49 QT: 386 QTc: 461 Interpretive Statements ATRIAL FIBRILLATION WITH ABERRANT CONDUCTION OR VENTRICULAR PREMATURE COMPLEXES MODERATE ST DEPRESSION [0.05+ mV ST DEPRESSION] Compared to ECG 06/13/2024 08:56:00 Ventricular premature complex(es) now present Aberrant conduction of supraventricular beat(s) now present ST (T wave) deviation now present Sinus rhythm no longer present /store/S0/[id number]/ecg/[id number].pdf
--- NOTE | 2025-10-08 11:22 | XR_ITS ---
EXAMINATION: AP chest single view TECHNIQUE: AP portable upright chest single view Date and time: October 08, 2025, 1135 hours INDICATIONS: Shortness of breath today. FINDINGS: Subsegmental atelectasis left base Reduced inspiratory effort Normal heart size No lobar pneumonia Prominent osteopenia IMPRESSION: Poor inspiratory effort chest x-ray
--- NOTE | 2025-10-08 11:22 | PD.EDADULT ---
ED General RME/HPI General Chief complaint: Weakness Stated complaint: WEAKNESS Time Seen by Provider: 10/08/25 11:12 Arrival date/time: 10/08/25 10:21 CC: Weakness and shortness of breath HPI onset 2 to 3 days ago the patient became progressively more short of breath after ambulating. Patient states that when he stands up he gets lightheaded and dizzy. Had a fall 10 days ago was seen by his PCP. Now has abrasions to his right arm and the right side of his face. Patient denies chest pain fever chills nausea or vomiting. Related Data Home Medications ?Medication ?Instructions ?Recorded ?Confirmed pantoprazole 40 mg tablet,delayed 40 mg PO BID 06/13/24 10/08/25 release rifaximin 550 mg tablet (Xifaxan) 550 mg PO BID 06/13/24 10/08/25 lactulose 10 gram/15 mL oral 15 ml PO BID 10/08/25 10/08/25 solution midodrine 5 mg tablet 5 mg PO DAILY 10/08/25 10/08/25 spironolactone 25 mg tablet 25 mg PO DAILY 10/08/25 10/08/25 Previous Rx's ?Medication ?Instructions ?Recorded bumetanide 1 mg tablet 2 mg (2 x 1 mg) PO BID 1 month 09/02/24 #120 tabs Allergies Allergy/AdvReac Type Severity Reaction Status Date / Time aspirin Allergy Severe GI bleed Verified 10/08/25 10:36 Review of Systems Review of Systems Narrative Review of Systems: GEN: No fever, no chills, no weight loss EYES: No discharge, no visual changes, no pain HEENT: No ear pain, no congestion, no sore throat PULM: + shortness of breath, no cough, no congestion CV: No chest pain, no dyspnea on exertion, no palpitations GI: No nausea, no vomiting, no diarrhea, no pain, no constipation : No frequency, no urgency, no dysuria MUSC/SKEL: No joint pain, no back pain SKIN: No rash PSYCH: No hallucinations, no depression HEME/LYMPH: No easy bleeding or bruising tendencies NEURO: + weakness, no headache Past Medical History Past Medical History NEUROLOGIC: Negative Neurological Disorders or Seizures CARDIAC: Positive Cardiac Disorders, Atrial Fibrillation, Heart Murmur, Edema, Cellulitis and Hypertension; Negative Hypercholesterolemia or Congestive Heart Failure RESPIRATORY: Negative Chronic Obstructive Pulmonary Disease (COPD) or Asthma GASTROINTESTINAL: Positive Gastrointestinal Disorders, Cirrhosis, Gastrointestinal Bleed, Esophageal Varices, Obstructive Bowel and Gastroesophageal Reflux Disease GENITOURINARY: Negative Genitourinary Disorders or Renal Disease REPRODUCTIVE: Negative Testicular Cancer MUSCULOSKELETAL: Positive Fractures; Negative Musculoskeletal Disorders ENDOCRINE: Negative Endocrine Disorders, Diabetes Mellitus Type 1 or Diabetes Mellitus Type 2 HEMATOLOGIC: Positive Blood Disorders and Anemia; Negative Sickle Cell Disease PSYCHO/SOCIAL: Negative Depression OTHER HISTORY: Positive Hospitalization, Falls, Blood Transfusions, Chicken Pox, Measles and Mumps; Negative Autoimmune Disease, Blood Transfusion Reaction, Anesthesia Reactions, Clostridium Difficile, Cancer or Testicular Cancer Family History FAMILY HISTORY: Positive Family Cancer; Negative Family Psychiatric Problems, Family Respiratory Disorders, Family Cardiac Disorders, Family Gastrointestinal Problems, Family Surgery or Family Anesthesia Reaction Surgical History SURGICAL: Positive Abdominal Surgery Social History SMOKING STATUS: Never smoker SECOND HAND EXPOSURE: No SUBSTANCE USE: does not use ED Exam Narrative Physical exam: [General: Not in any acute distress Head normocephalic HEENT: Face: Patient has old abrasions to the right side of the face. Eye pupils are PERRLA eyes EOM intact. Mouth pink dry membranes uvula is midline swallow symmetrical phonation is normal. All other subsystems of HEENT are within acceptable limits Neck is supple nontender, no JVD no edema Chest equal chest rise nontender to palpation Respiratory: Clear to auscultation no wheezes crackles or rubs CV: Rate rhythm is regular no murmurs rubs or clicks Abdomen is soft nontender no masses positive bowel sounds all 4 quadrants Back: No CVA tenderness no spinous process tenderness from cervical spine thoracic and lumbar spine Skin: Facial abrasions right arm abrasions in various stages of resolution secondary to a fall 10 days ago. Otherwise skin is intact no petechiae rash induration ulceration or crepitus Extremities: Moving all extremity against resistance cap refill less than 2 seconds neurosensory intact. Significant pitting edema in both lower extremities Neuro: Awake alert oriented x3 Glascow coma 15 no focal deficits] Course Course Course Narrative: Patient's severe anemia and a clinical presentation discussed with Dr. Koch awaiting the rest of the lab results she already agrees to a consult on this patient for admission once him on octreotide and Protonix drip and we will admit for weakness severe anemia GI bleed Patient's pressure is 70/50, the patient is not symptomatic as long as he is supine in bed. This time we will give him a little bit of albumin. As the patient has 2+ pitting edema in his lower extremity I think the there is a mild distribution of fluids, while we are awaiting packed cells to correct his hemoglobin of 3.8 Per nurse and the patient, the patient has in the past been getting transfusions every month but is they have tried to stretch it out to every other month. It appears this clearly is not working. Patient's case discussed with Dr. Reyez who agrees to consult on the patient. Patient's case discussed with attending for Dr. Martin, who agrees to accept the patient for admission. Quality Measures none Orders Category Date Time Status EKG (ED ONLY) *Do not use* NOW Care 10/08/25 11:22 Completed Saline [Insert IV] NOW Care 10/08/25 11:59 Active Transfuse,blood/blood products NOW Care 10/08/25 13:44 Active Consult to Cardiology Stat Cons 10/08/25 13:36 Ordered Consult to Gastroenterology Stat Cons 10/08/25 12:03 Ordered EKG (ED Only) Stat Exams 10/08/25 11:22 Draft XR chest 1V Stat Exams 10/08/25 11:22 Completed B-Type Natriuretic Peptide Stat Lab 10/08/25 11:07 Completed CBC Stat Lab 10/08/25 11:07 Completed Comprehensive Metabolic Panel Stat Lab 10/08/25 11:07 Completed Drug Screen,Urine Stat Lab 10/08/25 12:37 Completed LDH (Lactate Dehydrogenase) Stat Lab 10/08/25 11:07 Completed Magnesium Stat Lab 10/08/25 11:07 Completed Partial Thromboplastin Time Stat Lab 10/08/25 11:07 Completed Prothrombin Time with INR Stat Lab 10/08/25 11:07 Completed Troponin I Stat Lab 10/08/25 11:07 Completed Type and Screen Stat Lab 10/08/25 13:17 Results Urinalysis, C/S if Indicated Stat Lab 10/08/25 12:37 Completed prbc [Red Blood Cells] Stat Lab 10/08/25 13:17 Results Albumin Human 25% Ivpb [Albuminar-25 Ivpb] Med 10/08/25 12:08 Discontinued 12.5 gm in 50 ml IV X1 Midodrine [Proamatine] Med 10/08/25 12:36 Discontinued 10 mg PO X1 ONE Pantoprazole Inj [Protonix Inj] Med 10/08/25 11:59 Discontinued 40 mg IVP X1 ONE Pantoprazole/Ns 80Mg IV Premix [Protonix/NS 80mg IV Med 10/08/25 11:59 Active Premix] 80 mg in 100 ml IV Q10H Ringers Lactated 1000 ml [Lactated Ringers] 1,000 ml Med 10/08/25 12:20 Discontinued IV 999 mls/hr Sodium Chloride 0.9% [Ns] 100 ml Med 10/08/25 11:59 Active Octreotide Acet Inj [SandoSTATIN Inj] 1,000 mcg IV 50 mcg/hr Vital Signs Vital signs: Vital Signs Temperature 97.9 F 10/08/25 10:42 Pulse Rate 87 10/08/25 10:42 Respiratory Rate 16 10/08/25 10:42 Blood Pressure 84/38 L 10/08/25 10:42 Pulse Oximetry (%) 99 10/08/25 10:42 Oxygen Delivery Method Room Air 10/08/25 10:42 Discharge Plan Plan Patient Disposition: Admit Acute Care w/in Hospital Patient condition on transfer: Stable Problem List Clinical Impression: Anemia, Hypotension, Non-ST elevation WI (NSTEMI) PA/NIGHT CLEANER Supervising Physician PA/NIGHT CLEANER Supervising Physician: Tim Lyn ENP [facility] Clinical Information Provided by: patient and EMS Medical Records reviewed [facility] and EMS Medical Records additional comments: History of cirrhosis secondary to alcoholism status post TIPS end-stage liver disease umbilical hernia. Meds/Rx considered, not ordered None Labs/Rad/Tests considered, not ordered None Chronic Illness/Social Conditions Explain: Cirrhosis TIPS A-fib EKG Interpretation EKG #1: EKG Interpretation: EKG performed at 1149 shows a ventricular rate of 85 QRS of 428. This is A-fib. Also some ST segment depression in lateral leads. Note: I suspect this is demand ischemia it was just informed the patient's hemoglobin is 3 which would explain his chief complaint. Labs Labs: interpreted by me Lab(s) Interpretation(s): CBC shows pancytopenia with a hemoglobin of 3.8 and a hematocrit of 13.3. Platelets at 40. CMP shows sodium 127 potassium of 3.2 BUN of 29 creatinine 1.9 glucose 107 calcium at 7.3 total bili of 2.6 no transaminitis Troponin of 0.120 Medication Administration(s) Medication Administration History Octreotide Acetate 1,000 mcg/ (Sodium Chloride) 102 mls @ 5.1 mls/hr IV .Q20H [facility]; Protocol Stop: 10/09/25 07:58 Last Infusion: 10/08/25 19:43 Dose: 50 mcg/hr, 5.1 mls/hr Documented By: Infusion: 10/08/25 14:32 Dose: 0 mcg/hr, 0 mls/hr Documented By: Admin: 10/08/25 12:34 Dose: 50 mcg/hr, 5.1 mls/hr Documented By: LADONNA Pantoprazole Sodium (Protonix/Ns 80mg Iv Premix) 80 mg in 100 mls @ 10 mls/hr IV Q10H [facility] Stop: 10/11/25 09:58 Last Infusion: 10/08/25 19:45 Dose: 10 mls/hr Documented By: Infusion: 10/08/25 14:47 Dose: 0 mls/hr Documented By: Admin: 10/08/25 13:28 Dose: 10 mls/hr Documented By: LADONNA Ceftriaxone Sodium/Dextrose (Rocephin/D5w 1gm Iv Premix) 1 gm in 50 mls @ 100 mls/hr IV QDAY [facility] Stop: 10/15/25 16:14 Last Infusion: 10/08/25 21:32 Dose: Infused Documented By: Admin: 10/08/25 19:51 Dose: 100 mls/hr Documented By: YOKO Octreotide Acetate 1,000 mcg/ (Sodium Chloride) 102 mls @ 5.1 mls/hr IV .Q20H [facility]; Protocol Stop: 10/13/25 12:00 Lactulose (Lactulose Syrup 20 Gm/30 Ml Udc) 30 gm PO BID [facility]; Protocol Stop: 11/07/25 20:59 Last Admin: 10/08/25 20:10 Dose: 30 gm Documented By: YOKO Midodrine (Midodrine 5 Mg Tablet) 10 mg PO TID [facility] Stop: 11/07/25 21:59 Last Admin: 10/08/25 21:42 Dose: 10 mg Documented By: YOKO Rifaximin (Rifaximin 550 Mg Tablet) 550 mg PO BID [facility] Stop: 10/15/25 20:59 Last Admin: 10/08/25 20:11 Dose: 550 mg Documented By: YOKO Discontinued Medications Bumetanide (Bumetanide Inj 0.25 Mg/Ml Vial 4 Ml) 2 mg IVP X1 ONE Stop: 10/08/25 14:24 Bumetanide (Bumetanide Inj 0.25 Mg/Ml Vial 4 Ml) 2 mg IVP X1 ONE Stop: 10/08/25 19:40 Last Admin: 10/08/25 19:52 Dose: 2 mg Documented By: YOKO Furosemide (Furosemide Inj 10 Mg/Ml Vial 2 Ml) 20 mg IVP X1 PRN PRN Reason: Give 30 minutes Before Blood Transfusion Albumin Human (Albuminar-25 Ivpb) 12.5 gm in 50 mls @ 50 mls/hr IV X1 ONE Stop: 10/08/25 13:07 Last Infusion: 10/08/25 13:26 Dose: Infused Documented By: Admin: 10/08/25 12:32 Dose: 50 mls/hr Documented By: LADONNA Lactated Ringer's (Lactated Ringers) 1,000 mls @ 999 mls/hr IV .Q1H1M ONE Stop: 10/08/25 13:20 Last Admin: 10/08/25 16:02 Dose: Not Given Documented By: LADONNA Non-Admin Reason: Cancelled by Provider Albumin Human (Albuminar-5 Ivpb) 12.5 gm in 250 mls @ 100 mls/hr IV QDAY [facility] Stop: 10/12/25 16:51 Albumin Human (Albuminar-5 Ivpb) 12.5 gm in 250 mls @ 100 mls/hr IV X1 ONE Stop: 10/08/25 22:10 Last Admin: 10/08/25 19:52 Dose: 100 mls/hr Documented By: YOKO Midodrine (Midodrine 5 Mg Tablet) 10 mg PO X1 ONE Stop: 10/08/25 12:37 Last Admin: 10/08/25 12:43 Dose: 10 mg Documented By: LADONNA Pantoprazole Sodium (Pantoprazole Inj 40 Mg Vial) 40 mg IVP X1 ONE Stop: 10/08/25 12:00 Last Admin: 10/08/25 12:24 Dose: 40 mg Documented By: LADONNA
[2025-10-08 11:37] LABS: Basophils # (Auto) 0.0 Thou/mm3 (0.0-0.2); Basophils % (Auto) 0 % (0-2.5); Eosinophils # (Auto) 0.1 Thou/mm3 (0.0-0.5); Eosinophils % (Auto) 2 % (0-10); Immature Granulocytes Auto 0.04 Thou/mm3 (0.00-0.00); Lymphocytes # (Auto) 0.4 Thou/mm3 (1.0-4.8); Lymphocytes % (Auto) 11 % (10-50); Mean Corpuscular HGB Conc 28.6 g/dl (31.0-37.0); Mean Corpuscular Hemoglobin 25.0 pg (25.0-35.0); Mean Corpuscular Volume 88 fL (80-100); Monocytes # (Auto) 0.4 Thou/mm3 (0.0-0.8); Monocytes % (Auto) 13 % (0-12); Neutrophils # (Auto) 2.3 Thou/mm3 (1.8-7.7); Neutrophils % (Auto) 73 % (37-80); Nucleated Red Blood Cell # 0.00 Thou/mm3 (0.00-0.00); Nucleated Red Blood Cell % 0 /100 WBC (0); RDW Standard Deviation 54.8 fL (35.1-43.9); Red Blood Count 1.52 Miln/mm3 (4.50-5.90); White Blood Count 3.1 Thou/mm3 (3.8-10.6)
[2025-10-08 11:53] LABS: Hematocrit 13.3 % (41.0-53.0); Hemoglobin 3.8 g/dL (13.5-16.0); Platelet Count 40 Thou/mm3 (140-440)
[2025-10-08 11:58] LABS: INR 1.7 (0.9-1.3); Partial Thromboplastin Time 35.0 Seconds (22.0-36.0); Prothrombin Time 17.0 Seconds (9.0-12.2)
[2025-10-08 12:02] LABS: Alanine Aminotransferase 21 U/L (10-49); Albumin, Serum 2.1 gm/dL (3.4-4.8); Albumin/Globulin Ratio 1.0 (1.2-2.2); Alkaline Phosphatase 86 U/L (46-116); Anion Gap 11 (7-16); Aspartate Amino Transferase 25 U/L (0-34); BUN/Creatinine Ratio 15 Ratio (12-20); Bilirubin,Total 2.6 mg/dL (0.3-1.2); Blood Urea Nitrogen 29 mg/dL (9-23); Calcium 7.3 mg/dL (8.3-10.6); Calcium (Corrected) 8.8 mg/dL (8.5-10.1); Carbon Dioxide 20.7 mMol/L (20.0-31.0); Chloride 95 mMol/L (98-107); Creatinine (Component) 1.9 mg/dL (0.6-1.3); Estimated Creatinine Clearance 39.5 mL/min (>60); Globulin 2.2 gm/dL (2.3-3.5); Glucose 107 mg/dL (74-106); LDH (Lactate Dehydrogenase) 221 U/L (120-246); Magnesium 1.6 mg/dL (1.6-2.6); Osmolality,Calculated 261 (275-295); Potassium 3.2 mMol/L (3.4-5.1); Sodium 127 mMol/L (136-145); Total Protein 4.3 gm/dL (5.7-8.2); eGFR 38 See Note
[2025-10-08 12:04] LABS: Troponin I 0.120 ng/mL (0.0-0.045)
[2025-10-08 12:05] LABS: B-Type Natriuretic Peptide 92 pg/mL (0-100)
[2025-10-08] MEDS: ALBUMIN HUMAN 25% IVPB 12.5 GM/50 ML BTL IV (12:32)
[2025-10-08] MEDS: OCTREOTIDE ACET INJ 1,000 MCG in SODIUM CHLORIDE 0.9% 100 ML 5.1 MCG IV (12:34)
[2025-10-08 12:42] LABS: Collection Type, Urine Clean Catch
[2025-10-08] MEDS: MIDODRINE 5 MG TABLET 10 MG PO ×2 (12:43→21:42)
[2025-10-08 12:48] LABS: Bilirubin,Urine Negative (Negative); Blood,Urine Negative (Negative); Clarity,Urine Clear (Clear/Hazy); Color,Urine Lt-Yellow (Lt Yel-Yel); Culture Indicated,Urine Not Indicated; Glucose, Urine Negative (Negative); Hyaline Casts,Urine 1 /hpf (0-1); Ketones,Urine Negative (Negative); Leukocyte Esterase,Urine Negative (Negative); Nitrite,Urine Negative (Negative); PH,Urine 6.0 (5.0-7.0); Protein,Urine Negative (Neg - Trace); RBC,Urine 1 /hpf (0-3); Specific Gravity,Urine 1.011 (1.001-1.035); Squamous Epithelial Cell,Urine < 1 /hpf (0-5); Urobilinogen,Urine Negative mg/dL (0.0-1.0); WBC,Urine 1 /hpf (0-5)
[2025-10-08 12:51] LABS: Slide Review Platelets confirmed
[2025-10-08 13:00] LABS: Amphetamine/Methamp Scrn,U Negative (Negative); Barbiturate Screen,Urine Negative (Negative); Benzodiazepines Screen,Urine Negative (Negative); Benzoylecgonine Screen, Ur Negative (Negative); Fentanyl Screen,Urine Positive (Negative); Opiate Screen,Urine Negative (Negative); THC Screen,Urine Negative (Negative)
[2025-10-08] MEDS: PANTOPRAZOLE/NS 80MG IV PREMIX 80 MG/100 ML BAG 10 MG IV (13:28)
--- NOTE | 2025-10-08 14:18 | PD.RESCONSUL ---
HPI Data of Consult Primary Care Provider: Arlette Koch MD Consult Narrative History of present illness: History of Present Illness: Patient is a 64yM with PMH of hepatic encephalopathy, hyperlipidemia, paroxysmal atrial fibrillation, decompensated cirrhosis s/p TIPS, grade 1 esophageal varices, hypertensive portal gastropathy with mucosal oozing, and pancytopenia, and history of frequent PRBC transfusions presented to the hospital on 10/08/2025 for 2-3 days of worsening shortness of breath and dizziness. He reports that on Sep 28, 2025, he experienced a fall after tripping, landing on his right side. Since the fall, he has noted bruising over the right chin, right arm, and bilateral thighs. He denied loss of sonsciousness at the time of thefall. He reports dark brown stools, but denied any overt blood or melena. Denied hematuria, dysuria, palpitations, or chest pain. Cardiology was consulted for troponin elevation and Hx of Afib. ED Course: At arrival, VSS BP 101/40, HR 80, RR 18, T97.8, O2 100% in RA. Labs showed WBC 3.1, Hgb 3.8, PT 17, INR 1.7, APTT 35, NA 127, K+ 3.2, BUN 29, CR 1.9, glucose 107, trops 0.120, BNP 92,. UA negative. UDS positive for fentanyl. CXR showed subsegmental atelectasis left base, no lobar pneumonia, normal heart size. EKG showed atrial fibrillation with VPC Past medical history: Atrial fibrillation, ESLD s/p TIPS, GI bleed, ascites, hepatic encephalopathy, hyperlipidemia Past surgical history: Umbilical hernia surgery, tubes Social history: Stopped alcohol consumption almost 15 years ago, denies smoking, other illicit drug abuse Allergies: Aspirin cc:: cc: Review of Systems Review of Systems Narrative Review of Systems: All 12 systems assessed and the patient denies unless otherwise stated in HPI Exam Vital Signs Temp Pulse Resp BP Pulse Ox O2 Del Method 97.2 F 88 20 105/62 100 Room Air 10/08/25 11:51 10/08/25 13:04 10/08/25 13:04 10/08/25 13:04 10/08/25 13:04 10/08/25 11:51 Narrative Exam General: No acute distress, well nourished, AAO x3 Eye: PERRL, EOMI, normal conjunctiva, no scleral icterus HENT: hearing intact to conversation at normal volume, moist oral mucosa, Ecchymosis below right ear and lower chin Neck: Supple, non-tender, no JVD, no lymphadenopathy Lungs: Non-labored respirations, symmetric chest rise, Clear to auscultate bilaterally, No wheezing, rhonchi, crackles Heart: Peripheral pulses intact bilaterally, Regular Rate and Rhythm. Abdomen: Soft, non-tender, non-distended, no palpable masses Musculoskeletal: +3 pitting edema in BLE. Skin: Skin is warm, dry, no rashes or lesions. Ecchymosis on bilateral hands and inner thighs. Psychiatric: Cooperative, appropriate mood and affect, Awake and alert, not agitated Neuro: Cranial nerves II-XII grossly intact. Sensations intact to light touch. Results Labs 10/09/25 11:15 10/09/25 10:02 Labs: Short CBC 10/08/25 Range/Units 11:07 WBC 3.1 L (3.8-10.6) Thou/mm3 Hgb 3.8 L* (13.5-16.0) g/dL Hct 13.3 L* (41.0-53.0) % Plt Count 40 L (140-440) Thou/mm3 BMP 10/08/25 11:07 Sodium 127 L Potassium 3.2 L Chloride 95 L Carbon Dioxide 20.7 BUN 29 H Creatinine 1.9 H Glucose 107 H Calcium 7.3 L Cardiac Enzymes 10/08/25 Range/Units 11:07 Troponin I 0.120 H* (0.0-0.045) ng/mL Liver Function 10/08/25 Range/Units 11:07 Total Bilirubin 2.6 H (0.3-1.2) mg/dL AST 25 (0-34) U/L ALT 21 (10-49) U/L Alkaline Phosphatase 86 (46-116) U/L Albumin 2.1 L (3.4-4.8) gm/dL Urine 10/08/25 Range/Units 12:37 Urine Color Lt-Yellow (Lt Yel-Yel) Urine Clarity Clear (Clear/Hazy) Urine pH 6.0 (5.0-7.0) Ur Specific [place] 1.011 (1.001-1.035) Urine Protein Negative (Neg - Trace) Urine Glucose (UA) Negative (Negative) Quality Measures Quality Measures VTE prophylaxis Advance care planning discussed with:: patient and other Medications Home Medications and Allergies Home Medications ?Medication ?Instructions ?Recorded ?Confirmed ?Type pantoprazole 40 mg tablet,delayed 40 mg PO BID 06/13/24 10/08/25 History release rifaximin 550 mg tablet (Xifaxan) 550 mg PO BID 06/13/24 10/08/25 History lactulose 10 gram/15 mL oral 15 ml PO BID 10/08/25 10/08/25 History solution midodrine 5 mg tablet 5 mg PO DAILY 10/08/25 10/08/25 History spironolactone 25 mg tablet 25 mg PO DAILY 10/08/25 10/08/25 History Allergies Allergy/AdvReac Type Severity Reaction Status Date / Time aspirin Allergy Severe GI bleed Verified 10/08/25 10:36 Visit Medications Octreotide Acetate 1,000 mcg/ (Sodium Chloride) 102 mls @ 5.1 mls/hr IV .Q20H [facility]; Protocol Stop: 10/09/25 07:58 Last Admin: 10/08/25 12:34 Dose: 50 mcg/hr, 5.1 mls/hr Pantoprazole Sodium (Protonix/Ns 80mg Iv Premix) 80 mg in 100 mls @ 10 mls/hr IV Q10H [facility] Stop: 10/11/25 09:58 Last Admin: 10/08/25 13:28 Dose: 10 mls/hr Midodrine (Midodrine 5 Mg Tablet) 10 mg PO TID [facility] Stop: 11/07/25 21:59 Discontinued Medications Albumin Human (Albuminar-25 Ivpb) 12.5 gm in 50 mls @ 50 mls/hr IV X1 ONE Stop: 10/08/25 13:07 Last Infusion: 10/08/25 13:26 Dose: Infused Lactated Ringer's (Lactated Ringers) 1,000 mls @ 999 mls/hr IV .Q1H1M ONE Stop: 10/08/25 13:20 Midodrine (Midodrine 5 Mg Tablet) 10 mg PO X1 ONE Stop: 10/08/25 12:37 Last Admin: 10/08/25 12:43 Dose: 10 mg Pantoprazole Sodium (Pantoprazole Inj 40 Mg Vial) 40 mg IVP X1 ONE Stop: 10/08/25 12:00 Last Admin: 10/08/25 12:24 Dose: 40 mg Assessment & Plan Plan Patient is a 64yM with PMH of hepatic encephalopathy, hyperlipidemia, paroxysmal atrial fibrillation, decompensated cirrhosis s/p TIPS, grade 1 esophageal varices, hypertensive portal gastropathy with mucosal oozing, and pancytopenia, and history of frequent PRBC transfusions presented to the hospital on 10/08/2025 for 2-3 days of worsening shortness of breath and dizziness. Patient was admitted for GI bleed r/o and managment of Acute anemia. Cardiology was consulted for troponin elevation and Hx of Afib. #NSTEMI Type 1 vs 2 #Hx of A fib -Past ECHO (08/10/2024): Normal LV size and function. Estimated EF 55-60% Mild RV dilatation. Normal RV function. Estimated RVSP 35mmHg. Mild LA dilatation, Mild AV stenosis, mean gradient 16mmHg, vmax 2.8m/s. Mild MAC. Mild MR, TR. Trace AI. -On admission, Troponin lv: 0.120 -Likely Type 2 Demand ischemia in the setting of GI bleed/Acute anemia. -Has bled score 3. -INR 1.7 Plan: -Continue to F/u troponin levels -Pending ECHO -Not on anticog in the setting of possible GI bleed and pancytopenia -Monitor CBC and CMP -Strict I&O -Keep Mg >2 and K>4 #Acute blood loss anemia #Hx of Esophageal varices -On admission, Hgb 3.8 -4 units of Hgb has been ordered, Pending transfusion -Iv bumex 2g x1 # History of decompensated cirrhosis s/p TIPS #2/2 chronic alcohol abuse #hx of hepatic encephalopathy # Hyperbilirubinemia # Coagulopathy # Leukopenia # Thrombocytopenia #CKD stage III #CHEL on CKD -Management per Primary Hospitalist team Thank you for allowing us to participate in the care of your patient. Assessment and plan discussed with my attending physician Dr. Aissatou Douglas (PGY-1) - Internal medicine resident Attending Provider Attestation/Addendum I have personally seen and examined the patient separately on the above date of service and discussed the plan of care with the resident. I reviewed the resident Dr. Oumou Douglas consultation progress note and agree with the resident findings and plan in the note above and have also edited the documentation to reflect my findings and plan. Charanjit Reyez M.D. Interventional Cardiology
--- NOTE | 2025-10-08 14:23 | PC.SS ---
Jorge Isaac is a 64-year-old male admitted for Weakness. SS made contact with patient at bedside to complete initial and discuss discharge disposition. Role and reason for the contact was explained to Patient. Demographic information was verified. Patient appeared to be alert and oriented to person place and situation. Pt identified his son, Trever Isaac as his surrogate decision maker [phone]. Patient is independent with all ADLs. Patient reports he utilizes a cane and Rollator walker to assist with ambulation. Patient?s choice of pharmacy is [facility]. Patient reports he sees Dr. Koch. At time of discharge patient will return home, family will provide transportation. Discharge Plan: Home Next of Kin: Son, Trever Isaac, [phone] PCP:August-Seen Week ago
--- NOTE | 2025-10-08 14:25 | ESHP_ITS ---
<Statement entered by Philip Maria MD - 10/08/25 16:19> I saw and examined patient personally and supervised PGY 1 resident, Dr. Caraballo with formulating a management plan. I agree with the documentation with the exceptions as listed below. A 62-year-old male with a past medical history of alcoholic liver cirrhosis s/p TIPS, end-stage liver disease already evaluated by [facility] for transplant evaluation at rejected twice, history of GI bleed, hypertensive portal gastropathy, anemia secondary to GI bleed, ascites, hypercholesterolemia, CKD and history of paroxysmal atrial fibrillation diagnosed in November 2023 not on anticoagulation who presented today with a 3-day history of dizziness and progressively worsening fatigue. Problem list: 1. Acute blood loss anemia secondary to GI bleed for investigation 2. End-stage liver disease secondary to decompensated alcoholic cirrhosis with thrombocytopenia and coagulopathy 3. History of esophageal varices 4. NSTEMI type I versus type II 5. Aortic stenosis 6. Hyperlipidemia 7. CHEL on CKD stage III AA 8. Paroxysmal atrial fibrillation not on anticoagulation Patient and ex- were at bedside. According to the patient said for the past 3 days he had progressively worsening dizziness both at rest and ambulation and progressively worsening fatigue which peaked today and prompted his presentation to the ED. Initially he was hypotensive with BP 84/38, pulse 87, RR 16, temp 97.9 F, SpO2 99% on room air. His labs showed Hb 3.8, HCT 30.3, PLT 40, NA 127, K3.2, CR 1.9, troponin 0.12. EKG showed A-fib, rate [address] changes. Chest x-ray showed no signs of pulmonary edema, pleural effusion or consolidation. Patient received lactated Ringer's 1L IVF bolus, albumin 12.5 g IV x 1, octreotide infusion and midodrine 10 mg p.o. x 1 in the ED. Initially on presentation patient was hypotensive with a.m. Hb of 3.8. After receiving the treatment listed above, his BP improved 101/80. He was typed and crossmatched for 4 units of PRBCs, currently pending transfusion. Due to his history of cirrhosis, volume overload and severe lower extremity edema we will administer Lasix 20 mg IV 30 minutes prior to his blood transfusion to avoid TACO. With regards to his end-stage liver disease, we will give albumin 25 g IV x 1, octreotide infusion for suspected esophageal varices and splanchnic vasoconstriction for blood pressure support. Also resumed his home medication of lactulose and rifaximin to avoid hepatic encephalopathy. Started on ceftriaxone 1 g IV daily for SBP prophylaxis. Of note patient had a dizzy spell 2 weeks ago and had a fall with ecchymosis to his right lateral neck, right ribs and left thigh which are now improving. Previously he would receive routine blood transfusions of 2 units PRBCs every 6 weeks with his computer operations analyst, Dr. Koch. GI, Dr. Koch was consulted for GI bleed for investigation. Appreciate recommendations interventional cardiology, Dr. Reyez was consulted for atrial fibrillation. Plan of care discussed with Attending Dr. Mario Maria MD PGY 2 Disclaimer: This note was dictated by speech recognition. Minor errors in flexible shaft winder may be present due to voice recognition software. Documentation for date of: 10/08/25 HPI History of Present Illness History of present illness: HPI: A 63 year old male with significant past medical history of atrial fibrillation not on anticoagulation, alcoholic liver cirrhosis s/p TIPS, end- stage liver disease, GI bleeds, ascites, hyperlipidemia, s/p umbilical hernia surgery recurrent hospitalizations for GI bleed and hepatic encephalopathy presented to the ED on 10/08/2025 for evaluation of recent lightheadedness, difficulty breathing, and imbalance while ambulating. Patient states that he has been feeling increasingly more short of breath for the past 3 days. He also states that he becomes lightheaded when standing up from sitting position and loses balance when trying to walk. Indeed, he fell about 10 days ago and developed abrasions to his right arm and right side of his face, for which he saw his PCP. The patient has been getting blood transfusions monthly, and doing he and his providers have tried to stretch it out to every other month, he has developed the aforementioned symptoms in consequence. Patient denies chest pain fever chills nausea or vomiting. ED Course: At arrival, VSS BP 101/40, HR 80, RR 18, T97.8, O2 100% in RA. Labs showed WBC 3.1, Hgb 3.8, PT 17, INR 1.7, APTT 35, NA 127, K+ 3.2, BUN 29, CR 1.9, glucose 107, trops 0.120, BNP 92,. UA negative. UDS positive for fentanyl. CXR showed subsegmental atelectasis left base, no lobar pneumonia, normal heart size. EKG showed atrial fibrillation with VPC. Patient received pantoprazole 40 mg x 1, albumin 12.5 g x 1, octreotide 1 g, midodrine 10 mg x 1 pantoprazole 80 mg at 8mg/h Q10h. Past medical history: Atrial fibrillation, ESLD s/p TIPS, GI bleed, ascites, hepatic encephalopathy, hyperlipidemia Past surgical history: Umbilical hernia surgery, tubes Social history: Stopped alcohol consumption almost 15 years ago, denies smoking, other illicit drug abuse Allergies: Aspirin Exam Vital Signs Temp Pulse Resp BP Pulse Ox O2 Del Method 97.2 F 88 20 105/62 100 Room Air 10/08/25 11:51 10/08/25 13:04 10/08/25 13:04 10/08/25 13:04 10/08/25 13:04 10/08/25 11:51 Narrative Exam General: Alert and oriented x3, No apparent distress. Skin: Intact, Warm, no rashes. crusting and stigmata bleeding on Right forarm. HEENT: Normocephalic, Atraumatic. Normal neck range of motion, Supple. Trachea midline. Respiratory: Lungs are clear to auscultation. Breath sounds are equal bilaterally with good, symmetric chest expansion. Cardiovascular: RRR, normal S1, S2, No murmurs. Distal pulses 2+ Abdomen: Abdomen non-distended, without erythema, or lesions. Normotensive bowel sounds x4. Percussion tympanic. Palpation soft, nontender in all four quadrants. No organomagely. Absent rigidity, guarding, or rebound. present umbilical hernia. Musculoskeletal/Extremities: No erythema, swelling, tenderness of any joints. No edema of BLE. DP pulses +2/3 b/l. Full active ROM of all four extremities. 3+ left lower extremity and 2+ right lower extremity pitting edema. Neurologic: NEURO: Oriented x3, cranial nerves II to XII grossly intact. Cerebellar exam (gaclls-sj-[id number], rihe-[id number]) intact. Muscle strength 5/5 on UE and LE b/l, Moves extremities x4. Sensation intact to gross touch along C6-T1 and L2-S1 dermatomes. No focal neurologic deficits noted Psych: Thoughts linear and responses appropriate. Results: Labs 10/09/25 11:15 10/09/25 10:02 Labs: Short CBC 10/08/25 Range/Units 11:07 WBC 3.1 L (3.8-10.6) Thou/mm3 Hgb 3.8 L* (13.5-16.0) g/dL Hct 13.3 L* (41.0-53.0) % Plt Count 40 L (140-440) Thou/mm3 BMP 10/08/25 11:07 Sodium 127 L Potassium 3.2 L Chloride 95 L Carbon Dioxide 20.7 BUN 29 H Creatinine 1.9 H Glucose 107 H Calcium 7.3 L Cardiac Enzymes 10/08/25 Range/Units 11:07 Troponin I 0.120 H* (0.0-0.045) ng/mL Liver Function 10/08/25 Range/Units 11:07 Total Bilirubin 2.6 H (0.3-1.2) mg/dL AST 25 (0-34) U/L ALT 21 (10-49) U/L Alkaline Phosphatase 86 (46-116) U/L Albumin 2.1 L (3.4-4.8) gm/dL Urine 10/08/25 Range/Units 12:37 Urine Color Lt-Yellow (Lt Yel-Yel) Urine Clarity Clear (Clear/Hazy) Urine pH 6.0 (5.0-7.0) Ur Specific Snyder 1.011 (1.001-1.035) Urine Protein Negative (Neg - Trace) Urine Glucose (UA) Negative (Negative) Quality Measures Quality Measures none (contraindicated) Advance care planning discussed with:: patient Medications Home Medications and Allergies Home Medications ?Medication ?Instructions ?Recorded ?Confirmed ?Type pantoprazole 40 mg tablet,delayed 40 mg PO BID 4 10/08/25 History release rifaximin 550 mg tablet (Xifaxan) 550 mg PO BID 10/08/25 History lactulose 10 gram/15 mL oral 15 ml PO BID 10/08/2502/27 History solution midodrine 5 mg tablet 5 mg PO DAILY 10/08/2510/08 History spironolactone 25 mg tablet 25 mg PO DAILY 10/08/25 History Allergies Allergy/AdvReac Type Severity Reaction Status Date / Time aspirin Allergy Severe GI bleed Verified 10/08/25 10:36 Visit Medications Bumetanide (Bumetanide Inj 0.25 Mg/Ml Vial 4 Ml) 2 mg IVP X1 ONE Stop: 10/08/25 14:24 Furosemide (Furosemide Inj 10 Mg/Ml Vial 2 Ml) 20 mg IVP X1 PRN PRN Reason: Give 30 minutes Before Blood Transfusion Stop: 11/07/25 14:22 Octreotide Acetate 1,000 mcg/ (Sodium Chloride) 102 mls @ 5.1 mls/hr IV .Q20H ONE; Protocol Stop: 10/09/25 07:58 Last Admin: 10/08/25 12:34 Dose: 50 mcg/hr, 5.1 mls/hr Pantoprazole Sodium (Protonix/Ns 80mg Iv Premix) 80 mg in 100 mls @ 10 mls/hr IV Q10H LATRICE Stop: 10/11/25 09:58 Last Admin: 10/08/25 13:28 Dose: 10 mls/hr Albumin Human (Albuminar-5 Ivpb) 12.5 gm in 250 mls @ 100 mls/hr IV QDAY LATRICE Stop: 10/12/25 16:51 Midodrine (Midodrine 5 Mg Tablet) 10 mg PO TID [facility] Stop: 11/07/25 21:59 Discontinued Medications Albumin Human (Albuminar-25 Ivpb) 12.5 gm in 50 mls @ 50 mls/hr IV X1 ONE Stop: 10/08/25 13:07 Last Infusion: 10/08/25 13:26 Dose: Infused Lactated Ringer's (Lactated Ringers) 1,000 mls @ 999 mls/hr IV .Q1H1M ONE Stop: 10/08/25 13:20 Midodrine (Midodrine 5 Mg Tablet) 10 mg PO X1 ONE Stop: 10/08/25 12:37 Last Admin: 10/08/25 12:43 Dose: 10 mg Pantoprazole Sodium (Pantoprazole Inj 40 Mg Vial) 40 mg IVP X1 ONE Stop: 10/08/25 12:00 Last Admin: 10/08/25 12:24 Dose: 40 mg Assessment & Plan Plan A 63 year old male with significant past medical history of atrial fibrillation not on anticoagulation, alcoholic liver cirrhosis s/p TIPS, end-stage liver disease, GI bleeds, ascites, hyperlipidemia, s/p umbilical hernia surgery recurrent hospitalizations for GI bleed and hepatic encephalopathy presented to the ED on 10/08/2025 for evaluation of recent lightheadedness, difficulty breathing, and imbalance while ambulating. # Acute blood loss anemia # Esophageal varices, history of Patient had come in with 3-day history of lightheadedness, difficulty breathing and imbalance when walking. BP on presentation 84/38, and HR 87. hemoglobin 3.8. Patient received 1 L bolus of lactated Ringer's with improvement in blood pressure. Plan -2 PRBC transfusion ordered. -Started octreotide infusion. -GI, Dr Koch, consulted; appreciate recommendations. -Pantoprazole 40 Mg IV twice daily. -Repeat H&H after completion of transfusions. -Started on ceftriaxone and will continue rifaximin. -Will consult computer operations analyst Dr. Koch, appreciate recommendations # History of decompensated cirrhosis s/p TIPS #2/2 chronic alcohol abuse #hx of hepatic encephalopathy # Hyperbilirubinemia # Coagulopathy # Leukopenia # Thrombocytopenia -PT 17, INR 1.7, APTT 35 -Patient has had history of cirrhosis for almost 16 years from now. -Patient had bilateral pedal edema extending upto knees -Using bumetanide, spironolactone Plan: - albumen IV 25g x1 - Bumex IVP 2mg x1, holding spirinolactone iso HoTN - ceftriaxone 1g Qday for PPx SBP - Will continue lactulose p.o. 30gm twice daily - will continue rifaximin #CKD stage III #CHEL iso CKD - Patient is having CKD since 1 year, creatinine is around 1.4 at baseline - Creatinine at the time of admission is 1.9 Plan - Will continue to monitor renal functions - Will avoid nephrotoxic medications and renally dose medications #History of paroxysmal atrial fibrillation -Patient has irregularly irregular heart rate today as seen on EKG. -Patient was admitted with the bleeding manifestations -Patient is following with radar signal processing engineer, Dr. Reyez -INR 1.7 -Has bled score 3. Plan -cardiology, Dr Reyez, consulted; appreciate recommendations. -Patient is not a good candidate for anticoagulation therapy -As expected in the setting of cirrhosis with coagulopathy -Will monitor CBC. Health Maintenance: Hospital disposition:Tele GI prophylaxis: Pantoprazole Diet: Low sodium Code Status: Routine This case was discussed with my attending physician, Dr. Martin, and senior resident, Dr Maria. Even though this this note was carefully revised there may still be minor errors in flexible shaft winder due to voice recognition software. Marques Caraballo DO PGY I Attending Provider Attestation/Addendum I have discussed and was present for the essential components of the history, physical examination, diagnosis, and treatment plan with the resident. I agree with the patient's care as documented by the resident and amended herein by me. Mike Martin DO. Although this document has been carefully reviewed, there may still be some phonetic and other typographical errors. These errors are purely grammatical due to imperfections in the software program and should not be construed in any way to compromise the substance of the patient's medical care during this visit.
--- NOTE | 2025-10-08 14:56 | PC.NURSE ---
BLOOD TRANSFUSION STARTED ON THIS PT VIA 20G L AC BUT ABOUT 1 MINUTE LATER, IV SITE OBSERVED TO BE INFILTRATED. BLOOD TRANSFUSION PAUSED AND RE-STARTED ON 22G ON L WRIST. IV ON L AC DISCONTINUED. ADMITTING RESIDENTS MADE AWARE PT NEEDING CENTRAL LINE PT IS A DIFFICULT IV STICK & PT NEEDING A LARGER VEIN FOR BLOOD TRANSFUSION.
--- NOTE | 2025-10-08 16:17 | ECHO_ITS ---
Patient Info Name: Jorge Isaac Age: 64 years : 1960 Gender: Male Ht: 178 cm Wt: 84 kg BSA: 2.05 m2 BP: 101 / 40 mmHg HR: 73 bpm Exam Date: 10/09/2025 6:30 AM Admit Date: 10/08/2025 Site: [facility] Room Number: [id number] Patient Status: I Technical Quality: Fair Exam Type: CA echo doppler complete Stamper Blocker: Marika Jurado Ordering Physician: Philip Maria Study Info Indications Assess EF, valvular and wall motion abnormalities - Primary Location: S2NX Left Ventricular Outflow Tract Name Value Normal LVOT 2D LVOT Diameter 1.9 cm LVOT Doppler LVOT Peak Velocity 135 cm/s LVOT Mean Gradient 4 mmHg LVOT VTI 34 cm LVOT VTI/AV VTI Ratio 0.5 LVOT Stroke Volume 96 ml Pulmonic Valve Name Value Normal PV Doppler PV Peak Velocity 148 cm/s PV Regurgitation Doppler ND Peak End Diastolic Velocity 113 cm/s Mitral Valve Name Value Normal MV Doppler MV Mean Gradient 5 mmHg MV Decel [place] 535 cm/s2 MV PHT 63 ms MV Area (PHT) 3.5 cm2 4.0-5.0 MV Area (Cont Eq VTI) 1.5 cm2 MV Diastolic Function MV E Peak Velocity 117 cm/s MV A Peak Velocity 107 cm/s MV E/A 1.1 MV Annular TDI MV Septal e' Velocity 8.6 cm/s MV E/e' (Septal) 13.6 MV Lateral e' Velocity 8.3 cm/s MV E/e' (Lateral) 14.1 MV e' Average 8.43 cm/s MV E/e' (Average) 13.9 Tricuspid Valve Name Value Normal TV Regurgitation Doppler TR Peak Velocity 338 cm/s Estimated PAP/RSVP RA Pressure 15 mmHg <=5 PA Systolic Pressure 61 mmHg <36 RV Systolic Pressure 61 mmHg <36 Aortic Valve Name Value Normal AV 2D/MM AV Cusp Sep (MM) 1.4 cm AV Doppler AV Peak Velocity 320 cm/s AV Mean Gradient 20 mmHg AV VTI 74 cm AV Area (Cont Eq VTI) 1.3 cm2 >=3.0 AV Area (Cont Eq Anders) 1.2 cm2 AV DI (Anders) 0.42 AV Regurgitation 2D LVOT Area 2.8 cm2 Ventricles Name Value Normal LV Dimensions 2D/MM IVS Diastolic Thickness (2D) 0.8 cm 0.6-1.0 LVID Diastole (2D) 4.8 cm 4.2-5.8 LVIW Diastolic Thickness (2D) 1.1 cm 0.6-1.0 LVID Systole (2D) 3.2 cm 2.5-4.0 LVOT Diameter 1.9 cm LV Mass (2D Cubed) 158.82 g 88.00-224.00 LV Mass Index (2D Cubed) 78 g/m2 49-115 Relative Wall Thickness (2D) 0.46 <=0.42 IVS/LVIW Diastolic Thickness (2D) 0.73 0.00-1.50 LV Fractional Shortening/Ejection Fraction 2D/MM LV Fractional Shortening (2D) 33 % 25-43 LV EF (2D Teichholz) 62 % Atria Name Value Normal LA Dimensions LA Volume (4C A-L) 110 ml LA Volume (BP A-L) 90 ml Left Ventricle Left ventricular chamber dimension is normal. Left ventricular systolic function is normal with visually estimated ejection fraction of 50-55%. There is concentric remodeling noted in the left ventricle. Left ventricular segmental wall motion is normal. There is normal diastolic function in the left ventricle. Right Ventricle Right ventricular chamber dimension is mildly enlarged. Right ventricular systolic function is normal. Flattening of the ventricular septum in mid to late systole consistent with right ventricular pressure overload. Left Atrium Left atrial chamber dimension is mildly enlarged. Right Atrium Right atrial chamber dimension is normal. Aortic Valve The aortic valve is trileaflet. There is moderate aortic valve sclerosis. There is mild aortic valve stenosis with a peak velocity of 320 cm/s, mean gradient of 20 mmHg, and aortic valve area of 1.3 cm2. There is trace aortic valve regurgitation. Pulmonic Valve The pulmonic valve is normal. There is no pulmonic valve stenosis. There is mild pulmonic regurgitation. Mitral Valve The mitral valve has thickened leaflets. There is mild mitral valve stenosis. There is mild mitral valve regurgitation. Tricuspid Valve The tricuspid valve leaflets are normal. There is no tricuspid valve stenosis. There is mild tricuspid valve regurgitation. Pulmonary hypertension, estimated pulmonary arterial systolic pressure is 61 mmHg and systemic blood pressure of 101 mmHg in systole. Pericardium/Pleural The pericardium appears normal. There is no pericardial effusion. No pleural effusion visualized. Inferior Vena Cava Dilated inferior vena cava with >50% collapse upon inspiration consistent with normal right atrial pressure, 15 mmHg. Aorta The aortic measurements are indexed to age and body surface area. The aortic root at the sinus of Valsalva is not well visualized. The prox ascending aorta is not well visualized. Summary 1. Left ventricle size is normal and systolic function is normal. Estimated ejection fraction is 50-55%. grade 1 diastolic function. 2. Right ventricle chamber size is mildly enlarged and systolic function is normal. Estimated RVSP is 61 mmHg. Moderate to severe HTN. 3. Flattening of the ventricular septum in mid to late systole consistent with right ventricular pressure overload. 4. Mild Aortic stenosis and trace aortic regurgitation. 5. There is mild mitral valve stenosis and mild regurgitation. 6. There is mild tricuspid valve regurgitation. 7. The left atrium is mildly enlarged. The right atrium is normal. 8. Dilated IVC with estimated RA pressure 15 mmHg. Report Signatures Finalized by Charanjit Reyez on 10/09/2025 05:13 PM
--- NOTE | 2025-10-08 16:35 | XR_ITS ---
EXAMINATION: AP chest single view TECHNIQUE: AP portable upright chest single view Date and time: October 08, 2025, 1738 hours, comparison September 08, 2025 11:35 a.m. INDICATIONS: Post central line placement. FINDINGS: Left internal central line tip SVC satisfactory position, no pneumothorax, suspicious for early bilateral perihilar pneumonia Normal heart size Moderate osteopenia IMPRESSION: Left internal jugular central line tip satisfactory position
--- NOTE | 2025-10-08 16:54 | PC.NURSE ---
[facility] CALLED AT THIS TIME FOR CXR POSTPROCEDURE X2, NO ANSWER BOTH TIMES.
--- NOTE | 2025-10-08 16:57 | PD.RESPROC ---
PROCEDURES: Procedure Date / Time 10/08/25 1654 Central Line Placement Left IJ: Indication(s): poor, or inadequate peripheral venous access Informed consent obtained: from patient Time out done, and the following verified: correct patient, side and site, procedure, patient position and implants and/or equipment Patient placed on monitor/pulse ox: Yes Hand Hygiene: soap & water and alcohol-based hand rub Max Sterile Barrier Techniques used: cap, mask, sterile gown, sterile gloves and sterile full body drape Central line prep: Chlorhexidine scrub and sterile drapes applied Local anesthesia used: lidocaine 1% Amount of anesthesia used (mL): 3 Ultrasound used for placement: Yes Sterile Technique if Ultrasound used, including sterile gel: yes Central line lumen inserted: triple Post procedure: sutured in place, good blood return, all ports aspirated, flushed, capped and sterile dressing applied Post procedure x-ray: other (ordered, pending read) Patient tolerated procedure: well EBL(ml): 3 Complications: none Procedure comment: Supervised by attending Dr. De Santiago. Belinda Rankin, DO Internal Medicine PGY-1
--- NOTE | 2025-10-08 18:26 | PD.RESCONSUL ---
HPI Data of Consult Requesting Physician: Darren Martin DO Admitting Provider: Darren Martin DO Attending Provider: Darren Martin DO Primary Care Provider: Arlette Koch MD Consult Narrative History of present illness: 62-year-old male with a history of alcoholic liver cirrhosis status post-TIPS, end-stage liver disease (previously evaluated for [place] at [facility] [place]), GI bleed, hypertensive portal gastropathy, anemia secondary to GI bleed, ascites, hypercholesterolemia, chronic kidney disease, and paroxysmal atrial fibrillation (diagnosed November 2023, not on anticoagulation) presents with a 3-day history of dizziness, progressively worsening fatigue, and increasing shortness of breath. He reports lightheadedness upon standing and recent balance issues, resulting in a fall 10 days ago. The patient receives blood transfusions approximately every 6 weeks (2 units of pRBC), with his last transfusion nearly 8 weeks ago. On presentation, his hemoglobin is 3.8. Patient noticed darker colored stools for the past couple weeks, but denies passage of fresh blood, or hematemesis. Past medical history: As stated above. Past surgical history:Umbilical hernia surgery, tubes Allergies: Aspirin Family history: Noncontributory. Social history: Stopped alcohol consumption 17 years ago, denies smoking, other illicit drug abuse GI consulted for evalution of acute blood loss anemia in the setting of esophagael varices. cc:: cc: Darren Martin DO Review of Systems Review of Systems Narrative Review of Systems: All systems reviewed negative unless stated otherwise above. Exam Vital Signs Temp Pulse Resp BP Pulse Ox O2 Del Method 97.4 F 82 14 103/47 L 100 Room Air 10/08/25 17:00 10/08/25 17:00 10/08/25 17:00 10/08/25 17:10/08/25 17:10/08/25 17:00 Narrative Exam General: AOx3, no acute distress, able to speak full sentences HEENT: NC/AT, mucous membranes moist, bilateral sclera anicteric Cardiovascular: regular rate and rhythm, S1/S2 present, no murmurs appreciated Pulmonary: clear to auscultation bilaterally, no rales/rhonchi/wheezes Abdominal: soft, non-tender, non-distended, no rebound/guarding, normal bowel sounds present Musculoskeletal: normal ROM, no peripheral edema Skin: warm and dry, intact, no rashes, Neuro: CN II-XII intact, no focal deficits Results Labs 10/08/25 11:07 10/08/25 11:07 Labs: Short CBC 10/08/25 Range/Units 11:07 WBC 3.1 L (3.8-10.6) Thou/mm3 Hgb 3.8 L* (13.5-16.0) g/dL Hct 13.3 L* (41.0-53.0) % Plt Count 40 L (140-440) Thou/mm3 BMP 10/08/25 11:07 Sodium 127 L Potassium 3.2 L Chloride 95 L Carbon Dioxide 20.7 BUN 29 H Creatinine 1.9 H Glucose 107 H Calcium 7.3 L Cardiac Enzymes 10/08/25 Range/Units 11:07 Troponin I 0.120 H* (0.0-0.045) ng/mL Liver Function 10/08/25 Range/Units 11:07 Total Bilirubin 2.6 H (0.3-1.2) mg/dL AST 25 (0-34) U/L ALT 21 (10-49) U/L Alkaline Phosphatase 86 (46-116) U/L Albumin 2.1 L (3.4-4.8) gm/dL Urine 10/08/25 Range/Units 12:37 Urine Color Lt-Yellow (Lt Yel-Yel) Urine Clarity Clear (Clear/Hazy) Urine pH 6.0 (5.0-7.0) Ur Specific [place] 1.011 (1.001-1.035) Urine Protein Negative (Neg - Trace) Urine Glucose (UA) Negative (Negative) Quality Measures Quality Measures none (contraindicated) Advance care planning discussed with:: patient Medications Home Medications and Allergies Home Medications ?Medication ?Instructions ?Recorded ?Confirmed ?Type lactulose 20 gram/30 mL oral 30 g PO BID 06/13/24 08/28/24 History solution pantoprazole 40 mg tablet,delayed 40 mg PO BID 06/13/24 08/28/24 History release propranolol 10 mg tablet 10 mg PO TID 06/13/24 08/28/24 History rifaximin 550 mg tablet (Xifaxan) 550 mg PO BID 06/13/24 08/28/24 History Allergies Allergy/AdvReac Type Severity Reaction Status Date / Time aspirin Allergy Severe GI bleed Verified 10/08/25 10:36 Visit Medications Octreotide Acetate 1,000 mcg/ (Sodium Chloride) 102 mls @ 5.1 mls/hr IV .Q20H ONE; Protocol Stop: 10/09/25 07:58 Last Infusion: 10/08/25 14:32 Dose: 0 mcg/hr, 0 mls/hr Pantoprazole Sodium (Protonix/Ns 80mg Iv Premix) 80 mg in 100 mls @ 10 mls/hr IV Q10H LATRICE Stop: 10/11/25 09:58 Last Infusion: 10/08/25 14:47 Dose: 0 mls/hr Albumin Human (Albuminar-5 Ivpb) 12.5 gm in 250 mls @ 100 mls/hr IV QDAY LATRICE Stop: 10/12/25 16:51 Ceftriaxone Sodium/Dextrose (Rocephin/D5w 1gm Iv Premix) 1 gm in 50 mls @ 100 mls/hr IV QDAY LATRICE Stop: 10/15/25 16:14 Lactulose (Lactulose Syrup 20 Gm/30 Ml Udc) 30 gm PO BID LATRICE; Protocol Stop: 11/07/25 20:59 Midodrine (Midodrine 5 Mg Tablet) 10 mg PO TID LATRICE Stop: 11/07/25 21:59 Rifaximin (Rifaximin 550 Mg Tablet) 550 mg PO BID LATRICE Stop: 10/15/25 20:59 Discontinued Medications Bumetanide (Bumetanide Inj 0.25 Mg/Ml Vial 4 Ml) 2 mg IVP X1 ONE Stop: 10/08/25 14:24 Furosemide (Furosemide Inj 10 Mg/Ml Vial 2 Ml) 20 mg IVP X1 PRN PRN Reason: Give 30 minutes Before Blood Transfusion Albumin Human (Albuminar-25 Ivpb) 12.5 gm in 50 mls @ 50 mls/hr IV X1 ONE Stop: 10/08/25 13:07 Last Infusion: 10/08/25 13:26 Dose: Infused Lactated Ringer's (Lactated Ringers) 1,000 mls @ 999 mls/hr IV .Q1H1M ONE Stop: 10/08/25 13:20 Last Admin: 10/08/25 16:02 Dose: Not Given Midodrine (Midodrine 5 Mg Tablet) 10 mg PO X1 ONE Stop: 10/08/25 12:37 Last Admin: 10/08/25 12:43 Dose: 10 mg Pantoprazole Sodium (Pantoprazole Inj 40 Mg Vial) 40 mg IVP X1 ONE Stop: 10/08/25 12:00 Last Admin: 10/08/25 12:24 Dose: 40 mg Assessment & Plan Plan 62-year-old male with alcoholic liver cirrhosis, end-stage liver disease, GI bleed, ascites, CKD, and paroxysmal atrial fibrillation presents with 3 days of dizziness, fatigue, and shortness of breath; GI consulted for evaluation of acute blood loss anemia likely related to esophageal varices. #Acute blood loss anemia #Hx of esophageal varices Suspicion at this time is of bleeding esophageal varicies Gets regular blood transfusions, approx q6wks (2 u pRBC) Patient noticed darker colored stools for the past couple weeks, but denies passage of fresh blood, or hematemesis. Hemoglobin on presentation 3.8. 4 u pRBC ordered, so far recieved 1u pRBC Plan - NPO from midnight - EGD consent obtained, planned for tomorrow - Continue octreotide drip - Continue pantoprazole 40mg BID - Keep hgb >7 - Monitor hgb with daily labs - Continue ceftriaxone and rifaximin Ongoing issues, managed by primary team: #History of decompensated cirrhosis s/p TIPS #2/2 chronic alcohol abuse #hx of hepatic encephalopathy #Hyperbilirubinemia #Coagulopathy #Leukopenia #Thrombocytopenia #CKD stage III #AKIonCKD #History of paroxysmal atrial fibrillation Thank you for the consult. We will continue to follow the patient. Case discussed with my attending Dr. August Price MD PGY-1 Attending Provider Attestation/Addendum Patient personally examined and evaluated Spoke with the ER physician /Patient has history of dark stools and hemoglobin really dropped down to 3.8 Recommend octreotide infusion IV Protonix serial CBC and consent obtained for fiberoptic esophagogastroduodenoscopy with possible therapeutic intervention under intravenous moderate sedation Thank you very much for the opportunity to participate in care of this patient
[2025-10-08] MEDS: cefTRIAXone/D5w 1gm IV premix 1 GM/50 ML BAG IV (19:51)
[2025-10-08] MEDS: BUMETANIDE INJ 0.25 MG/ML VIAL 4 ML 2 MG IVP (19:52)
[2025-10-08] MEDS: ALBUMIN HUMAN 5% IVPB 12.5 GM/250 ML BTL IV (19:52)
[2025-10-08] MEDS: LACTULOSE SYRUP 20 GM/30 ML UDC 30 GM PO (20:10)
[2025-10-08 21:13] LABS: Troponin I 0.146 ng/mL (0.0-0.045)
[2025-10-09] VITALS (27 sets, daily range): BP systolic 93–127; BP diastolic 48–89; PULSE 69–87; RESP 13–19; TEMP 36.1–36.7; O2SAT 93–100; BMI 30.4
[2025-10-09] MEDS: PANTOPRAZOLE/NS 80MG IV PREMIX 80 MG/100 ML BAG 10 MG IV ×2 (02:13→15:10)
[2025-10-09 02:37] LABS: Hematocrit 16.3 % (41.0-53.0); Hemoglobin 5.1 g/dL (13.5-16.0)
[2025-10-09] MEDS: MIDODRINE 5 MG TABLET 10 MG PO ×2 (05:05→22:10)
--- NOTE | 2025-10-09 08:35 | PC.SS ---
Follow up note: Blood transfusion. EGD today.
[2025-10-09] MEDS: POTASSIUM CHL 10 mEq IVPB 10 MEQ/100 ML BAG 100 MEQ IV ×4 (09:14→13:36)
[2025-10-09] MEDS: cefTRIAXone/D5w 1gm IV premix 1 GM/50 ML BAG IV (09:14)
[2025-10-09] MEDS: ALBUMIN HUMAN-KJDA 25% IVPB 25 GM/100 ML BTL IV ×3 (09:19→22:10)
[2025-10-09] MEDS: OCTREOTIDE ACET INJ 1,000 MCG in SODIUM CHLORIDE 0.9% 100 ML 5.1 MCG IV (10:11)
[2025-10-09] MEDS: BUMETANIDE INJ 0.25 MG/ML VIAL 4 ML 1 MG IVP (10:12)
[2025-10-09 11:21] LABS: Alanine Aminotransferase 16 U/L (10-49); Albumin, Serum 2.5 gm/dL (3.4-4.8); Albumin/Globulin Ratio 1.4 (1.2-2.2); Alkaline Phosphatase 77 U/L (46-116); Anion Gap 9 (7-16); Aspartate Amino Transferase 19 U/L (0-34); BUN/Creatinine Ratio 14 Ratio (12-20); Bilirubin,Total 7.3 mg/dL (0.3-1.2); Blood Urea Nitrogen 26 mg/dL (9-23); Calcium 7.4 mg/dL (8.3-10.6); Calcium (Corrected) 8.6 mg/dL (8.5-10.1); Carbon Dioxide 22.9 mMol/L (20.0-31.0); Cardiac Risk Estimate 5.5 RATIO (4.0-6.7); Chloride 97 mMol/L (98-107); Cholesterol 88 mg/dL (132-200); Creatinine (Component) 1.8 mg/dL (0.6-1.3); Estimated Creatinine Clearance 47.1 mL/min (>60); Globulin 1.8 gm/dL (2.3-3.5); Glucose 104 mg/dL (74-106); HDL Cholesterol 16 mg/dL (40-60); LDL Cholesterol,Calculated 61 mg/dL (0-130); Magnesium 1.7 mg/dL (1.6-2.6); Osmolality,Calculated 263 (275-295); Potassium 3.2 mMol/L (3.4-5.1); Sodium 129 mMol/L (136-145); Total Protein 4.3 gm/dL (5.7-8.2); Triglycerides 53 mg/dL (30-150); eGFR 41 See Note
[2025-10-09 11:31] LABS: Troponin I 0.209 ng/mL (0.0-0.045)
[2025-10-09 11:37] LABS: Basophils # (Auto) 0.0 Thou/mm3 (0.0-0.2); Basophils % (Auto) 0 % (0-2.5); Eosinophils # (Auto) 0.1 Thou/mm3 (0.0-0.5); Eosinophils % (Auto) 3 % (0-10); Hematocrit 22.0 % (41.0-53.0); Immature Granulocytes Auto 0.11 Thou/mm3 (0.00-0.00); Lymphocytes # (Auto) 0.4 Thou/mm3 (1.0-4.8); Lymphocytes % (Auto) 12 % (10-50); Mean Corpuscular HGB Conc 33.2 g/dl (31.0-37.0); Mean Corpuscular Hemoglobin 28.4 pg (25.0-35.0); Mean Corpuscular Volume 86 fL (80-100); Monocytes # (Auto) 0.4 Thou/mm3 (0.0-0.8); Monocytes % (Auto) 13 % (0-12); Neutrophils # (Auto) 2.0 Thou/mm3 (1.8-7.7); Neutrophils % (Auto) 68 % (37-80); Nucleated Red Blood Cell # 0.00 Thou/mm3 (0.00-0.00); Nucleated Red Blood Cell % 0 /100 WBC (0); RDW Standard Deviation 46.4 fL (35.1-43.9); Red Blood Count 2.57 Miln/mm3 (4.50-5.90); White Blood Count 2.9 Thou/mm3 (3.8-10.6)
[2025-10-09 11:52] LABS: Hemoglobin 7.3 g/dL (13.5-16.0); Platelet Count 23 Thou/mm3 (140-440)
[2025-10-09 12:01] LABS: Slide Review Platelets confirmed
--- NOTE | 2025-10-09 12:15 | PC.NURSE ---
Notified Dr. Martin of critical trop level 0.209
--- NOTE | 2025-10-09 16:13 | PD.RESPRO ---
Documentation for date of: 10/09/25 Subjective Subjective Interval history: History of Present Illness: Patient is a 64yM with PMH of hepatic encephalopathy, hyperlipidemia, paroxysmal atrial fibrillation, decompensated cirrhosis s/p TIPS, grade 1 esophageal varices, hypertensive portal gastropathy with mucosal oozing, and pancytopenia, and history of frequent PRBC transfusions presented to the hospital on 10/08/2025 for 2-3 days of worsening shortness of breath and dizziness. He reports that on Sep 28, 2025, he experienced a fall after tripping, landing on his right side. Since the fall, he has noted bruising over the right chin, right arm, and bilateral thighs. He denied loss of sonsciousness at the time of thefall. He reports dark brown stools, but denied any overt blood or melena. Denied hematuria, dysuria, palpitations, or chest pain. Cardiology was consulted for troponin elevation and Hx of Afib. ED Course: At arrival, VSS BP 101/40, HR 80, RR 18, T97.8, O2 100% in RA. Labs showed WBC 3.1, Hgb 3.8, PT 17, INR 1.7, APTT 35, NA 127, K+ 3.2, BUN 29, CR 1.9, glucose 107, trops 0.120, BNP 92,. UA negative. UDS positive for fentanyl. CXR showed subsegmental atelectasis left base, no lobar pneumonia, normal heart size. EKG showed atrial fibrillation with VPC Past medical history: Atrial fibrillation, ESLD s/p TIPS, GI bleed, ascites, hepatic encephalopathy, hyperlipidemia Past surgical history: Umbilical hernia surgery, tubes Social history: Stopped alcohol consumption almost 15 years ago, denies smoking, other illicit drug abuse Allergies: Aspirin 10/08/2025: Likely Type 2 Demand ischemia in the setting of GI bleed/Acute anemia. F/u with troponin 10/09/2025: No Overnight events. Labs reviewed and patient examined at the bedside. Troponin still in increasing trend. 0.120-> 0.146 -> 0.209. Continue to monitor troponin levels. Patient has Anasarca with +3 pitting edema on Bilateral LE extending to his thigh and +2 pitting edema on Bilateral UE. Multiple pRBC transfusions and protonix drip likely has contributed to his swelling. Recommend continuing on IV bumex until his edema improves. Exam Vital Signs Temp Pulse Resp BP Pulse Ox O2 Del Method 97.3 F 72 13 94/53 L 98 Room Air 10/09/25 12:00 10/09/25 12:00 10/09/25 12:00 10/09/25 12:00 10/09/25 12:00 10/09/25 12:00 Narrative Exam General: No acute distress, well nourished, AAO x3 Eye: PERRL, EOMI, normal conjunctiva, no scleral icterus HENT: hearing intact to conversation at normal volume, moist oral mucosa, Ecchymosis below right ear and lower chin Neck: Supple, non-tender, no JVD, no lymphadenopathy Lungs: Non-labored respirations, symmetric chest rise, Clear to auscultate bilaterally, No wheezing, rhonchi, crackles Heart: Peripheral pulses intact bilaterally, Regular Rate and Rhythm. Abdomen: Soft, non-tender, non-distended, no palpable masses Musculoskeletal: +3 pitting edema on Bilateral LE extending to his thigh and +2 pitting edema on Bilateral UE. Skin: Skin is warm, dry, no rashes or lesions. Ecchymosis on bilateral hands and inner thighs. Psychiatric: Cooperative, appropriate mood and affect, Awake and alert, not agitated Neuro: Cranial nerves II-XII grossly intact. Sensations intact to light touch. Objective Labs 10/09/25 11:15 10/09/25 10:02 Labs: Laboratory Results - last 24 hr 10/08/25 10/08/25 10/09/25 13:17 20:20 01:41 WBC RBC Hgb 5.1 L* D Hct 16.3 L* MCV MCH MCHC RDW Std Deviation Plt Count Neut % (Auto) Lymph % (Auto) [place] % (Auto) Eos % (Auto) Baso % (Auto) Neut # (Auto) Lymph # (Auto) [place] # (Auto) Eos # (Auto) Baso # (Auto) Immature Gran # (Auto) Absolute Nucleated RBC Immature Gran % Nucleated RBC % Sodium Potassium Chloride Carbon Dioxide Anion Gap BUN Creatinine Estim Creat Clear Calc eGFR BUN/Creatinine Ratio Glucose Calculated Osmolality Calcium Corrected Calcium Magnesium Total Bilirubin AST ALT Alkaline Phosphatase Troponin I 0.146 H* Total Protein Albumin Globulin Albumin/Globulin Ratio Triglycerides Cholesterol LDL Cholesterol, Calc HDL Cholesterol Cholesterol/HDL Ratio Misc Test Result Blood Type AB Positive Antibody Screen NEGATIVE Crossmatch See Detail Blood Bank Wristband ID Yes Blood Bank Comment FFP Ready 10/09/25 10/09/25 10:02 11:15 WBC 2.9 L RBC 2.57 L Hgb 7.3 L D Hct 22.0 L MCV 86 MCH 28.4 MCHC 33.2 RDW Std Deviation 46.4 H Plt Count 23 L* D Neut % (Auto) 68 Lymph % (Auto) 12 [place] % (Auto) 13 H Eos % (Auto) 3 Baso % (Auto) 0 Neut # (Auto) 2.0 Lymph # (Auto) 0.4 L [place] # (Auto) 0.4 Eos # (Auto) 0.1 Baso # (Auto) 0.0 Immature Gran # (Auto) 0.11 H Absolute Nucleated RBC 0.00 Immature Gran % 4 H Nucleated RBC % 0 Sodium 129 L Potassium 3.2 L Chloride 97 L Carbon Dioxide 22.9 Anion Gap 9 BUN 26 H Creatinine 1.8 H Estim Creat Clear Calc 47.1 L eGFR 41 L BUN/Creatinine Ratio 14 Glucose 104 Calculated Osmolality 263 L Calcium 7.4 L Corrected Calcium 8.6 Magnesium 1.7 Total Bilirubin 7.3 H D AST 19 ALT 16 Alkaline Phosphatase 77 Troponin I 0.209 H* Total Protein 4.3 L Albumin 2.5 L Globulin 1.8 L Albumin/Globulin Ratio 1.4 Triglycerides 53 Cholesterol 88 L LDL Cholesterol, Calc 61 HDL Cholesterol 16 L Cholesterol/HDL Ratio 5.5 Misc Test Result Platelets confirmed Blood Type Antibody Screen Crossmatch Blood Bank Wristband ID Blood Bank Comment Quality Measures Quality Measures none Advance care planning discussed with:: patient and other Assessment & Plan Assessment Current Active Medications: Generic Name Dose Route Start Last Admin Trade Name Freq PRN Reason Stop Dose Admin Pantoprazole Sodium 80 mg in 100 mls @ 10 mls/hr 10/08/25 11:59 10/09/25 15:10 Protonix/Ns 80mg Iv Premix IV 10/11/25 09:58 10 mls/hr Q10H LATRICE Administration Ceftriaxone Sodium/Dextrose 1 gm in 50 mls @ 100 mls/hr 10/08/25 16:15 10/09/25 09:14 Rocephin/D5w 1gm Iv Premix IV 10/15/25 16:14 100 mls/hr QDAY LATRICE Administration Octreotide Acetate 1,000 mcg/ 102 mls @ 5.1 mls/hr 10/09/25 07:30 10/09/25 10:11 Sodium Chloride IV 10/13/25 12:00 50 mcg/hr .Q20H LATRICE 5.1 mls/hr Protocol Administration 50 MCG/HR Albumin Human 25 gm in 100 mls @ 100 mls/hr 10/09/25 14:00 10/09/25 15:10 Albuminex 25% Ivpb IV 10/14/25 13:59 100 mls/hr TID LATRICE Administration Lactulose 30 gm 10/08/25 21:00 10/09/25 09:37 Lactulose Syrup 20 Gm/30 Ml Udc PO 11/07/25 20:59 Not Given BID LATRICE Protocol Midodrine 10 mg 10/08/25 22:00 10/09/25 15:09 Midodrine 5 Mg Tablet PO 11/07/25 21:59 Not Given TID LATRICE Rifaximin 550 mg 10/08/25 21:00 10/09/25 09:37 Rifaximin 550 Mg Tablet PO 10/15/25 20:59 Not Given BID LATRICE Plan Patient is a 64yM with PMH of hepatic encephalopathy, hyperlipidemia, paroxysmal atrial fibrillation, decompensated cirrhosis s/p TIPS, grade 1 esophageal varices, hypertensive portal gastropathy with mucosal oozing, and pancytopenia, and history of frequent PRBC transfusions presented to the hospital on 10/08/2025 for 2-3 days of worsening shortness of breath and dizziness. Patient was admitted for GI bleed r/o and managment of Acute anemia. Cardiology was consulted for troponin elevation and Hx of Afib. #NSTEMI Type 1 vs 2 #Hx of A fib -Past ECHO (08/10/2024): Normal LV size and function. Estimated EF 55-60% Mild RV dilatation. Normal RV function. Estimated RVSP 35mmHg. Mild LA dilatation, Mild AV stenosis, mean gradient 16mmHg, vmax 2.8m/s. Mild MAC. Mild MR, TR. Trace AI. -On admission, Troponin lv: 0.120 -Likely Type 2 Demand ischemia in the setting of GI bleed/Acute anemia. -Has bled score 3. -INR 1.7 -10/09: Troponin still in increasing trend. 0.120-> 0.146 -> 0.209. Plan: -Continue to F/u troponin levels -Pending ECHO -Not on anticog in the setting of possible GI bleed and pancytopenia -Monitor CBC and CMP -Strict I&O -Keep Mg >2 and K>4 #Acute blood loss anemia #Hx of Esophageal varices -On admission, Hgb 3.8 -4 units of pRBC transfused -Iv bumex 2g x1 #Anasarca #Hx of Decompensated CIrrhosis s/p TIPS #Hx of Hepatic encephalopathy -Anasarca with +3 pitting edema on Bilateral LE extending to his thigh and +2 pitting edema on Bilateral UE. Multiple pRBC transfusions and protonix drip likely has contributed to his swelling. -Continue IV bumex until his swelling improves # History of decompensated cirrhosis s/p TIPS #2/2 chronic alcohol abuse #hx of hepatic encephalopathy # Hyperbilirubinemia # Coagulopathy # Leukopenia # Thrombocytopenia #CKD stage III #CHEL on CKD -Management per Primary Hospitalist team Thank you for allowing us to participate in the care of your patient. Assessment and plan discussed with my attending physician Dr. Aissatou Douglas (PGY-1) - Internal medicine resident Attending Provider Attestation/Addendum I have personally seen and examined the patient separately on the above date of service and discussed the plan of care with the resident. I reviewed the resident Dr. Oumou Douglas consultation progress note and agree with the resident findings and plan in the note above and have also edited the documentation to reflect my findings and plan. Charanjit Reyez M.D. Interventional Cardiology
--- NOTE | 2025-10-09 17:29 | ESPR_ITS ---
<Statement entered by Philip Maria MD - 10/09/25 22:44> I saw and examined patient personally and supervised PGY 1 resident, Dr. Caraballo with formulating a management plan. I agree with the documentation with the exceptions as listed below. Repeat H&H post 4 units PRBC 7.6. Continues to be on octreotide, albumin and midodrine for blood pressure support. Pantoprazole infusion onging for GI bleed. Past 24 hours patient on Bumex 6 mg IV for diuresis and prevent TACO. Gave additional Bumex 2 Mg IV x 1. Fluid balance 687 cc in past 24 hours. Patient to undergo EGD by gastroenterology, Dr. Koch today to identify possible source of blood loss. Plan of care discussed with Attending Dr. Mario Maria MD PGY 2 Disclaimer: This note was dictated by speech recognition. Minor errors in benefits consultant may be present due to voice recognition software. Documentation for date of: 10/09/25 Subjective Subjective Interval history: Patient was seen and examined at bedside. No acute events took place overnight. Patient reports that he has had melanotic stools on and off for hx of chronic GI bleed. He denies fevers, chest pain, SOB, abdominal pain, bleeding in urine, nausea/vomiting, hematemesis, or bright red blood per rectum. Patient was transfused with 2 additional units of PRBC for hemoglobin 5.1 at 9 PM yesterday. Also ordered were 1 unit each of FFP and plt. Exam Vital Signs Temp Pulse Resp BP Pulse Ox O2 Del Method 97.0 F 73 14 99/56 L 97 Room Air 10/09/25 16:00 10/09/25 16:00 10/09/25 16:00 10/09/25 16:00 10/09/25 16:00 10/09/25 16:00 Narrative Exam General: Alert and oriented x3, No apparent distress. Skin: Intact, Warm, no rashes. crusting and stigmata bleeding on Right forarm. HEENT: Normocephalic, Atraumatic. Normal neck range of motion, Supple. Trachea midline. Respiratory: Lungs are clear to auscultation. Breath sounds are equal bilaterally with good, symmetric chest expansion. Cardiovascular: RRR, normal S1, S2, No murmurs. Distal pulses 2+ Abdomen: Abdomen non-distended, without erythema, or lesions. Normotensive bowel sounds x4. Percussion tympanic. Palpation soft, nontender in all four quadrants. No organomagely. Absent rigidity, guarding, or rebound. present umbilical hernia. Musculoskeletal/Extremities: No erythema, swelling, tenderness of any joints. No edema of BLE. DP pulses +2/3 b/l. Full active ROM of all four extremities. 3+ left lower extremity and 2+ right lower extremity pitting edema. Neurologic: NEURO: Oriented x3, cranial nerves II to XII grossly intact. Muscle strength 5/5 on UE and LE b/l, Moves extremities x4. Sensation intact to gross touch along C6-T1 and L2-S1 dermatomes. No focal neurologic deficits noted Psych: Thoughts linear and responses appropriate. Objective Labs 10/09/25 11:15 10/09/25 10:02 Labs: Laboratory Results - last 24 hr 10/08/25 10/08/25 10/09/25 13:17 20:20 01:41 WBC RBC Hgb 5.1 L* D Hct 16.3 L* MCV MCH MCHC RDW Std Deviation Plt Count Neut % (Auto) Lymph % (Auto) [place] % (Auto) Eos % (Auto) Baso % (Auto) Neut # (Auto) Lymph # (Auto) [place] # (Auto) Eos # (Auto) Baso # (Auto) Immature Gran # (Auto) Absolute Nucleated RBC Immature Gran % Nucleated RBC % Sodium Potassium Chloride Carbon Dioxide Anion Gap BUN Creatinine Estim Creat Clear Calc eGFR BUN/Creatinine Ratio Glucose Calculated Osmolality Calcium Corrected Calcium Magnesium Total Bilirubin AST ALT Alkaline Phosphatase Troponin I 0.146 H* Total Protein Albumin Globulin Albumin/Globulin Ratio Triglycerides Cholesterol LDL Cholesterol, Calc HDL Cholesterol Cholesterol/HDL Ratio Misc Test Result Blood Type AB Positive Antibody Screen NEGATIVE Crossmatch See Detail Blood Bank Wristband ID Yes Blood Bank Comment FFP Ready 10/09/25 10/09/25 10:02 11:15 WBC 2.9 L RBC 2.57 L Hgb 7.3 L D Hct 22.0 L MCV 86 MCH 28.4 MCHC 33.2 RDW Std Deviation 46.4 H Plt Count 23 L* D Neut % (Auto) 68 Lymph % (Auto) 12 [place] % (Auto) 13 H Eos % (Auto) 3 Baso % (Auto) 0 Neut # (Auto) 2.0 Lymph # (Auto) 0.4 L [place] # (Auto) 0.4 Eos # (Auto) 0.1 Baso # (Auto) 0.0 Immature Gran # (Auto) 0.11 H Absolute Nucleated RBC 0.00 Immature Gran % 4 H Nucleated RBC % 0 Sodium 129 L Potassium 3.2 L Chloride 97 L Carbon Dioxide 22.9 Anion Gap 9 BUN 26 H Creatinine 1.8 H Estim Creat Clear Calc 47.1 L eGFR 41 L BUN/Creatinine Ratio 14 Glucose 104 Calculated Osmolality 263 L Calcium 7.4 L Corrected Calcium 8.6 Magnesium 1.7 Total Bilirubin 7.3 H D AST 19 ALT 16 Alkaline Phosphatase 77 Troponin I 0.209 H* Total Protein 4.3 L Albumin 2.5 L Globulin 1.8 L Albumin/Globulin Ratio 1.4 Triglycerides 53 Cholesterol 88 L LDL Cholesterol, Calc 61 HDL Cholesterol 16 L Cholesterol/HDL Ratio 5.5 Misc Test Result Platelets confirmed Blood Type Antibody Screen Crossmatch Blood Bank Wristband ID Blood Bank Comment Quality Measures Quality Measures none Advance care planning discussed with:: patient Assessment & Plan Assessment Current Active Medications: Generic Name Dose Route Start Last Admin Trade Name Freq PRN Reason Stop Dose Admin Pantoprazole Sodium 80 mg in 100 mls @ 10 mls/hr 10/08/25 11:59 10/09/25 15:10 Protonix/Ns 80mg Iv Premix IV 10/11/25 09:58 10 mls/hr Q10H LATRICE Administration Ceftriaxone Sodium/Dextrose 1 gm in 50 mls @ 100 mls/hr 10/08/25 16:15 10/09/25 09:14 Rocephin/D5w 1gm Iv Premix IV 10/15/25 16:14 100 mls/hr QDAY LATRICE Administration Octreotide Acetate 1,000 mcg/ 102 mls @ 5.1 mls/hr 10/09/25 07:30 10/09/25 10:11 Sodium Chloride IV 10/13/25 12:00 50 mcg/hr .Q20H LATRICE 5.1 mls/hr Protocol Administration 50 MCG/HR Albumin Human 25 gm in 100 mls @ 100 mls/hr 10/09/25 14:00 10/09/25 15:10 Albuminex 25% Ivpb IV 10/14/25 13:59 100 mls/hr TID LATRICE Administration Lactulose 30 gm 10/08/25 21:00 10/09/25 09:37 Lactulose Syrup 20 Gm/30 Ml Udc PO 11/07/25 20:59 Not Given BID [facility] Protocol Midodrine 10 mg 10/08/25 22:00 10/09/25 15:09 Midodrine 5 Mg Tablet PO 11/07/25 21:59 Not Given TID LATRICE Rifaximin 550 mg 10/08/25 21:00 10/09/25 09:37 Rifaximin 550 Mg Tablet PO 10/15/25 20:59 Not Given BID LATRICE Plan A 63 year old male with significant past medical history of atrial fibrillation not on anticoagulation, alcoholic liver cirrhosis s/p TIPS, end-stage liver disease, GI bleeds, ascites, hyperlipidemia, s/p umbilical hernia surgery recurrent hospitalizations for GI bleed and hepatic encephalopathy presented to the ED on 10/08/2025 for evaluation of recent lightheadedness, difficulty breathing, and imbalance while ambulating. # Acute blood loss anemia # Esophageal varices, history of Patient had come in with 3-day history of lightheadedness, difficulty breathing and imbalance when walking. BP on presentation 84/38, and HR 87. hemoglobin 3.8. Patient received 1 L bolus of lactated Ringer's with improvement in blood pressure. + Hgb after 2u of PRBC, 5.1, patient was given 2 additional units, and his Hgb was 7.3 in a.m. labs. 10/09: EGD showed grade 1 varices in the lower third of the esophagus. Diffuse erythematous stomach mucosa with stigmata of recent bleeding characteristic of gastritis. Normal duodenum. Plan -Octreotide infusion to continue for 5 days (10/09 - ) -2 PRBC transfusion ordered. -Started octreotide infusion. -GI, Dr Koch, consulted; appreciate recommendations. -Pantoprazole 40 Mg IV twice daily. -Repeat H&H after completion of transfusions. -Started on ceftriaxone and will continue rifaximin. -Will consult orchid grower Dr. Koch, appreciate recommendations # History of decompensated cirrhosis s/p TIPS #2/2 chronic alcohol abuse #hx of hepatic encephalopathy # Hyperbilirubinemia # Coagulopathy # Leukopenia # Thrombocytopenia -PT 17, INR 1.7, APTT 35 -Patient has had history of cirrhosis for almost 16 years from now. -Patient had bilateral pedal edema extending upto knees -Using bumetanide, spironolactone at home MELD-Na score 30: 52.6% risk of mortality in the next 3mo Maddrey's score 36.7 indicating poor prognosis and potential benefit from glucocorticoid therapy Plan: - albumin IV 25g Qday (10/08-10/14) - Bumex IVP 2mg x1, holding spirinolactone iso HoTN - ceftriaxone 1g Qday for PPx SBP - continue lactulose p.o. 30gm twice daily - continue rifaximin PO 550 bid #History of paroxysmal atrial fibrillation #NSTEMI Type I vs II -Patient has irregularly irregular heart rate as seen on EKG. -Patient was admitted with chronic anemia 2/2 UGIB + 10/09: Troponin still in increasing trend. 0.120-> 0.146 -> 0.209. -Patient is following with carding utility tender, Dr. Reyez -INR 1.7 -Has bled score 3. Plan -cardiology, Jimenez Reyez, consulted; appreciate recommendations. -Patient is not a good candidate for anticoagulation therapy iso GI bleed and pancytopenia -As expected in the setting of cirrhosis with coagulopathy -Continue to F/u troponin levels -Pending echo -Keep Mg >2 and K>4 #CKD stage III #CHEL iso CKD - Patient is having CKD since 1 year, creatinine is around 1.4 at baseline - Creatinine at the time of admission is 1.9 Plan - Will continue to monitor renal functions - Will avoid nephrotoxic medications and renally dose medications Health Maintenance: Hospital disposition:Tele GI prophylaxis: Pantoprazole Diet: Low sodium Code Status: Routine This case was discussed with my attending physician, Dr. Martin, and senior resident, Dr Maria. Even though this this note was carefully revised there may still be minor errors in benefits consultant due to voice recognition software. Marques Caraballo DO PGY I Attending Provider Attestation/Addendum I have discussed and was present for the essential components of the history, physical examination, diagnosis, and treatment plan with the resident. I agree with the patient's care as documented by the resident and amended herein by me. Mike Martin DO. Although this document has been carefully reviewed, there may still be some phonetic and other typographical errors. These errors are purely grammatical due to imperfections in the software program and should not be construed in any way to compromise the substance of the patient's medical care during this visit.
[2025-10-09 17:54] LABS: Troponin I 0.178 ng/mL (0.0-0.045)
[2025-10-09] MEDS: SODIUM CHLORIDE 0.9% 500 ML 500 ML 20 ML IV (17:57)
[2025-10-09] MEDS: LACTULOSE SYRUP 20 GM/30 ML UDC 30 GM PO (20:16)
[2025-10-10] VITALS (24 sets, daily range): BP systolic 99–130; BP diastolic 45–69; PULSE 67–145; RESP 13–23; TEMP 36.1–37.1; O2SAT 94–98
--- NOTE | 2025-10-10 00:55 | PC.NURSE ---
CLARIFIED WITH DR MO REGARDING TRANSFUSION ORDERS FOR 1 PLT, 1 FFP THAT WERE NOT GIVEN. PER HAND OFF REPORT, WAS TOLD THEY WERE ON HOLD BUT NO ORDERS INDICATING TO HOLD. LAB REQUESTING FOR PLTS FOR A DIFFERENT PT. PER CHEPE, HOLD PLT AND FFP FOR NOW AND WILL FOLLOW UP WITH DAY TEAM.
[2025-10-10] MEDS: PANTOPRAZOLE/NS 80MG IV PREMIX 80 MG/100 ML BAG 10 MG IV ×3 (02:14→23:57)
[2025-10-10] MEDS: MIDODRINE 5 MG TABLET 10 MG PO ×3 (05:13→21:23)
[2025-10-10] MEDS: ALBUMIN HUMAN-KJDA 25% IVPB 25 GM/100 ML BTL IV ×3 (05:13→21:23)
[2025-10-10 05:38] LABS: Basophils # (Auto) 0.0 Thou/mm3 (0.0-0.2); Basophils % (Auto) 1 % (0-2.5); Eosinophils # (Auto) 0.3 Thou/mm3 (0.0-0.5); Eosinophils % (Auto) 12 % (0-10); Hematocrit 20.5 % (41.0-53.0); Immature Granulocytes Auto 0.09 Thou/mm3 (0.00-0.00); Lymphocytes # (Auto) 0.3 Thou/mm3 (1.0-4.8); Lymphocytes % (Auto) 10 % (10-50); Mean Corpuscular HGB Conc 32.2 g/dl (31.0-37.0); Mean Corpuscular Hemoglobin 28.2 pg (25.0-35.0); Mean Corpuscular Volume 88 fL (80-100); Monocytes # (Auto) 0.3 Thou/mm3 (0.0-0.8); Monocytes % (Auto) 12 % (0-12); Neutrophils # (Auto) 1.5 Thou/mm3 (1.8-7.7); Neutrophils % (Auto) 60 % (37-80); Nucleated Red Blood Cell # 0.02 Thou/mm3 (0.00-0.00); Nucleated Red Blood Cell % 1 /100 WBC (0); RDW Standard Deviation 49.0 fL (35.1-43.9); Red Blood Count 2.34 Miln/mm3 (4.50-5.90); White Blood Count 2.4 Thou/mm3 (3.8-10.6)
[2025-10-10 05:50] LABS: Hemoglobin 6.6 g/dL (13.5-16.0); Platelet Count 18 Thou/mm3 (140-440)
[2025-10-10] MEDS: OCTREOTIDE ACET INJ 1,000 MCG in SODIUM CHLORIDE 0.9% 100 ML 5.1 MCG IV (06:10)
[2025-10-10 06:11] LABS: Alanine Aminotransferase 12 U/L (10-49); Albumin, Serum 2.8 gm/dL (3.4-4.8); Albumin/Globulin Ratio 1.8 (1.2-2.2); Alkaline Phosphatase 69 U/L (46-116); Anion Gap 11 (7-16); Aspartate Amino Transferase 17 U/L (0-34); BUN/Creatinine Ratio 16 Ratio (12-20); Bilirubin,Total 4.2 mg/dL (0.3-1.2); Blood Urea Nitrogen 27 mg/dL (9-23); Calcium 7.6 mg/dL (8.3-10.6); Calcium (Corrected) 8.6 mg/dL (8.5-10.1); Carbon Dioxide 23.2 mMol/L (20.0-31.0); Chloride 99 mMol/L (98-107); Creatinine (Component) 1.7 mg/dL (0.6-1.3); Estimated Creatinine Clearance 35.2 mL/min (>60); Globulin 1.6 gm/dL (2.3-3.5); Glucose 104 mg/dL (74-106); Magnesium 1.6 mg/dL (1.6-2.6); Osmolality,Calculated 271 (275-295); Potassium 3.0 mMol/L (3.4-5.1); Sodium 133 mMol/L (136-145); Total Protein 4.4 gm/dL (5.7-8.2); eGFR 44 See Note
[2025-10-10 06:21] LABS: Path Review Blood Smear Sent to Pathologist; Slide Review Platelets confirmed
[2025-10-10] MEDS: POTASSIUM CHL 10 mEq IVPB 10 MEQ/100 ML BAG 100 MEQ IV ×4 (09:18→13:20)
[2025-10-10] MEDS: cefTRIAXone/D5w 1gm IV premix 1 GM/50 ML BAG IV (09:18)
[2025-10-10] MEDS: BUMETANIDE INJ 0.25 MG/ML VIAL 4 ML 2 MG IVP (09:18)
--- NOTE | 2025-10-10 09:46 | PD.RESPRO ---
Documentation for date of: 10/10/25 Subjective Subjective Interval history: Patient is a 64yM with PMH of hepatic encephalopathy, hyperlipidemia, paroxysmal atrial fibrillation, decompensated cirrhosis s/p TIPS, grade 1 esophageal varices, hypertensive portal gastropathy with mucosal oozing, and pancytopenia, and history of frequent PRBC transfusions presented to the hospital on 10/08/2025 for 2-3 days of worsening shortness of breath and dizziness. He reports that on Sep 28, 2025, he experienced a fall after tripping, landing on his right side. Since the fall, he has noted bruising over the right chin, right arm, and bilateral thighs. He denied loss of sonsciousness at the time of thefall. He reports dark brown stools, but denied any overt blood or melena. Denied hematuria, dysuria, palpitations, or chest pain. Cardiology was consulted for troponin elevation and Hx of Afib. ED Course: At arrival, VSS BP 101/40, HR 80, RR 18, T97.8, O2 100% in RA. Labs showed WBC 3.1, Hgb 3.8, PT 17, INR 1.7, APTT 35, NA 127, K+ 3.2, BUN 29, CR 1.9, glucose 107, trops 0.120, BNP 92,. UA negative. UDS positive for fentanyl. CXR showed subsegmental atelectasis left base, no lobar pneumonia, normal heart size. EKG showed atrial fibrillation with VPC Past medical history: Atrial fibrillation, ESLD s/p TIPS, GI bleed, ascites, hepatic encephalopathy, hyperlipidemia Past surgical history: Umbilical hernia surgery, tubes Social history: Stopped alcohol consumption almost 15 years ago, denies smoking, other illicit drug abuse Allergies: Aspirin 10/08/2025: Likely Type 2 Demand ischemia in the setting of GI bleed/Acute anemia. F/u with troponin 10/09/2025: No Overnight events. Labs reviewed and patient examined at the bedside. Troponin still in increasing trend. 0.120-> 0.146 -> 0.209. Continue to monitor troponin levels. Patient has Anasarca with +3 pitting edema on Bilateral LE extending to his thigh and +2 pitting edema on Bilateral UE. Multiple pRBC transfusions and protonix drip likely has contributed to his swelling. Recommend continuing on IV bumex until his edema improves. 10/10/2025: Troponin downtrended 0.209 -> 0.178. Currently on IV bumex 2mg qd. ECHO (10/08/2025) showed EF: 50-55%. LV size and systolic fxn normal. RVSP 61mmHg with estimated RAP 15mmHg, Moderate to severe pulmonary hypertension. Mild Aortic stenosis, Mild MS, Mild MR, Mild Trcuspid regurgitation. Patient started on Octrotide drip based on GI recommendations from EGD yesterday (10/09) showing Grade I esophageale Varices and diffuse severely erythematous mucosa with sigmata of recent bleeding in entire examined stomach. Urine Output for last 24hrs was 2.29L. Overall, patient's edema has significantly improved. Patient's overall symptoms also greatly improved. Denies any SOB, palpitations, chest pain. Will continue current managment. K+:3.0, Mag 1.6 Exam Vital Signs Temp Pulse Resp BP Pulse Ox O2 Del Method O2 Flow Rate 96.9 F 78 20 100/56 L 94 L Room Air 2 10/10/25 08:00 10/10/25 09:18 10/10/25 08:00 10/10/25 09:18 10/10/25 08:00 10/10/25 08:00 10/09/25 18:42 Narrative Exam General: No acute distress, well nourished, AAO x3 Eye: PERRL, EOMI, normal conjunctiva, no scleral icterus HENT: hearing intact to conversation at normal volume, moist oral mucosa, Ecchymosis below right ear and lower chin Neck: Supple, non-tender, no JVD, no lymphadenopathy Lungs: Non-labored respirations, symmetric chest rise, Clear to auscultate bilaterally, No wheezing, rhonchi, crackles Heart: Peripheral pulses intact bilaterally, Regular Rate and Rhythm. Abdomen: Soft, non-tender, non-distended, no palpable masses Musculoskeletal: +1 pitting edema on Bilateral LE extending to his thigh and +1 pitting edema on Bilateral UE. Skin: Skin is warm, dry, no rashes or lesions. Ecchymosis on bilateral hands and inner thighs. Psychiatric: Cooperative, appropriate mood and affect, Awake and alert, not agitated Neuro: Cranial nerves II-XII grossly intact. Sensations intact to light touch. Objective Labs 10/12/25 06:14 10/12/25 06:14 Labs: Laboratory Results - last 24 hr 10/08/25 10/09/25 10/09/25 13:17 10:02 11:15 WBC 2.9 L RBC 2.57 L Hgb 7.3 L D Hct 22.0 L MCV 86 MCH 28.4 MCHC 33.2 RDW Std Deviation 46.4 H Plt Count 23 L* D Neut % (Auto) 68 Lymph % (Auto) 12 [place] % (Auto) 13 H Eos % (Auto) 3 Baso % (Auto) 0 Neut # (Auto) 2.0 Lymph # (Auto) 0.4 L [place] # (Auto) 0.4 Eos # (Auto) 0.1 Baso # (Auto) 0.0 Immature Gran # (Auto) 0.11 H Absolute Nucleated RBC 0.00 Immature Gran % 4 H Nucleated RBC % 0 Smear Path Review Sodium 129 L Potassium 3.2 L Chloride 97 L Carbon Dioxide 22.9 Anion Gap 9 BUN 26 H Creatinine 1.8 H Estim Creat Clear Calc 47.1 L eGFR 41 L BUN/Creatinine Ratio 14 Glucose 104 Calculated Osmolality 263 L Calcium 7.4 L Corrected Calcium 8.6 Magnesium 1.7 Total Bilirubin 7.3 H D AST 19 ALT 16 Alkaline Phosphatase 77 Troponin I 0.209 H* Total Protein 4.3 L Albumin 2.5 L Globulin 1.8 L Albumin/Globulin Ratio 1.4 Triglycerides 53 Cholesterol 88 L LDL Cholesterol, Calc 61 HDL Cholesterol 16 L Cholesterol/HDL Ratio 5.5 Misc Test Result Platelets confirmed Blood Type AB Positive Antibody Screen NEGATIVE Crossmatch See Detail Blood Bank Wristband ID Yes Blood Bank Comment FFP Ready 10/09/25 10/10/25 17:24 04:20 WBC 2.4 L RBC 2.34 L Hgb 6.6 L* Hct 20.5 L* MCV 88 MCH 28.2 MCHC 32.2 RDW Std Deviation 49.0 H Plt Count 18 L* D Neut % (Auto) 60 Lymph % (Auto) 10 [place] % (Auto) 12 Eos % (Auto) 12 H Baso % (Auto) 1 Neut # (Auto) 1.5 L Lymph # (Auto) 0.3 L [place] # (Auto) 0.3 Eos # (Auto) 0.3 Baso # (Auto) 0.0 Immature Gran # (Auto) 0.09 H Absolute Nucleated RBC 0.02 H Immature Gran % 4 H Nucleated RBC % 1 H Smear Path Review Sent to Pathologist Sodium 133 L Potassium 3.0 L Chloride 99 Carbon Dioxide 23.2 Anion Gap 11 BUN 27 H Creatinine 1.7 H Estim Creat Clear Calc 35.2 L eGFR 44 L BUN/Creatinine Ratio 16 Glucose 104 Calculated Osmolality 271 L Calcium 7.6 L Corrected Calcium 8.6 Magnesium 1.6 Total Bilirubin 4.2 H D AST 17 ALT 12 Alkaline Phosphatase 69 Troponin I 0.178 H* Total Protein 4.4 L Albumin 2.8 L Globulin 1.6 L Albumin/Globulin Ratio 1.8 Triglycerides Cholesterol LDL Cholesterol, Calc HDL Cholesterol Cholesterol/HDL Ratio Misc Test Result Platelets confirmed Blood Type Antibody Screen Crossmatch Blood Bank Wristband ID Blood Bank Comment Quality Measures Quality Measures none Advance care planning discussed with:: patient and other Assessment & Plan Assessment Current Active Medications: Generic Name Dose Route Start Last Admin Trade Name Freq PRN Reason Stop Dose Admin Bumetanide 2 mg 10/10/25 09:00 10/10/25 09:18 Bumetanide Inj 0.25 Mg/Ml Vial 4 Ml IVP 11/09/25 08:59 2 mg QDAY LATRICE Administration Pantoprazole Sodium 80 mg in 100 mls @ 10 mls/hr 10/08/25 11:59 10/10/25 02:14 Protonix/Ns 80mg Iv Premix IV 10/11/25 09:58 10 mls/hr Q10H LATRICE Administration Ceftriaxone Sodium/Dextrose 1 gm in 50 mls @ 100 mls/hr 10/08/25 16:15 10/10/25 09:18 Rocephin/D5w 1gm Iv Premix IV 10/15/25 16:14 100 mls/hr QDAY LATRICE Administration Octreotide Acetate 1,000 mcg/ 102 mls @ 5.1 mls/hr 10/09/25 07:30 10/10/25 06:10 Sodium Chloride IV 10/13/25 12:00 50 mcg/hr .Q20H LATRICE 5.1 mls/hr Protocol Administration 50 MCG/HR Albumin Human 25 gm in 100 mls @ 100 mls/hr 10/09/25 14:00 10/10/25 05:13 Albuminex 25% Ivpb IV 10/14/25 13:59 100 mls/hr TID LATRICE Administration Sodium Chloride 500 mls @ 20 mls/hr 10/09/25 17:55 10/09/25 17:57 Ns IV 10/10/25 17:54 20 mls/hr .Q24H ONE Administration Potassium Chloride 10 meq in 100 mls @ 100 mls/hr 10/10/25 08:20 10/10/25 09:18 Kcl Ivpb IV 10/10/25 12:19 100 mls/hr Q1H LATRICE Administration Lactulose 30 gm 10/08/25 21:00 10/09/25 20:16 Lactulose Syrup 20 Gm/30 Ml Udc PO 11/07/25 20:59 30 gm BID LATRICE Administration Protocol Midodrine 10 mg 10/08/25 22:00 10/10/25 05:13 Midodrine 5 Mg Tablet PO 11/07/25 21:59 10 mg TID LATRICE Administration Rifaximin 550 mg 10/08/25 21:00 10/10/25 09:19 Rifaximin 550 Mg Tablet PO 10/15/25 20:59 550 mg BID LATRICE Administration Plan Patient is a 64yM with PMH of hepatic encephalopathy, hyperlipidemia, paroxysmal atrial fibrillation, decompensated cirrhosis s/p TIPS, grade 1 esophageal varices, hypertensive portal gastropathy with mucosal oozing, and pancytopenia, and history of frequent PRBC transfusions presented to the hospital on 10/08/2025 for 2-3 days of worsening shortness of breath and dizziness. Patient was admitted for GI bleed r/o and managment of Acute anemia. Cardiology was consulted for troponin elevation and Hx of Afib. #NSTEMI Type 1 vs 2 #Hx of A fib -Past ECHO (08/10/2024): Normal LV size and function. Estimated EF 55-60% Mild RV dilatation. Normal RV function. Estimated RVSP 35mmHg. Mild LA dilatation, Mild AV stenosis, mean gradient 16mmHg, vmax 2.8m/s. Mild MAC. Mild MR, TR. Trace AI. -ECHO (10/08/2025): EF: 50-55%. LV size and systolic fxn normal. RVSP 61mmHg with estimated RAP 15mmHg, Moderate to severe pulmonary hypertension. Mild Aortic stenosis, Mild MS, Mild MR, Mild Trcuspid regurgitation. -On admission, Troponin lv: 0.120 -Likely Type 2 Demand ischemia in the setting of GI bleed/Acute anemia. -Has bled score 3. -INR 1.7 -10/10: Troponin downtrended. 0.120-> 0.146 -> 0.209 -> 0.178 Plan: -Continue to F/u troponin levels -Not on anticog in the setting of possible GI bleed and pancytopenia -Monitor CBC and CMP -Strict I&O -Keep Mg >2 and K>4 #Acute blood loss anemia #Hx of Esophageal varices -On admission, Hgb 3.8 -5 units of pRBC transfused with hb of 7.5 and on octreotide, PPI -GI following #Moderate to Severe Pulmonary Hypertension #Anasarca- Resolving #Hx of Decompensated CIrrhosis s/p TIPS #Hx of Hepatic encephalopathy -10/09: Anasarca with +3 pitting edema on Bilateral LE extending to his thigh and +2 pitting edema on Bilateral UE. Multiple pRBC transfusions and protonix drip likely has contributed to his swelling. -10/10: Edema is improving. Urine Output for last 24hrs was 2.29L -On IV bumex 2mg qd. # History of decompensated cirrhosis s/p TIPS #2/2 chronic alcohol abuse #hx of hepatic encephalopathy # Hyperbilirubinemia # Coagulopathy # Leukopenia # Thrombocytopenia #CKD stage III #CHEL on CKD -Management per Primary Hospitalist team Thank you for allowing us to participate in the care of your patient. Assessment and plan discussed with my attending physician Dr. Aissatou Douglas (PGY-1) - Internal medicine resident Attending Provider Attestation/Addendum I have personally seen and examined the patient separately on the above date of service and discussed the plan of care with the resident. I reviewed the resident Dr. Oumou Douglas consultation progress note and agree with the resident findings and plan in the note above and have also edited the documentation to reflect my findings and plan. Charanjit Reyez M.D. Interventional Cardiology
[2025-10-10] MEDS: LACTULOSE SYRUP 20 GM/30 ML UDC 30 GM PO ×2 (10:37→21:23)
[2025-10-10 13:35] LABS: Basophils # (Auto) 0.0 Thou/mm3 (0.0-0.2); Basophils % (Auto) 1 % (0-2.5); Eosinophils # (Auto) 0.0 Thou/mm3 (0.0-0.5); Eosinophils % (Auto) 1 % (0-10); Hematocrit 23.1 % (41.0-53.0); Immature Granulocytes Auto 0.09 Thou/mm3 (0.00-0.00); Lymphocytes # (Auto) 0.2 Thou/mm3 (1.0-4.8); Lymphocytes % (Auto) 7 % (10-50); Mean Corpuscular HGB Conc 32.5 g/dl (31.0-37.0); Mean Corpuscular Hemoglobin 28.6 pg (25.0-35.0); Mean Corpuscular Volume 88 fL (80-100); Monocytes # (Auto) 0.4 Thou/mm3 (0.0-0.8); Monocytes % (Auto) 13 % (0-12); Neutrophils # (Auto) 2.3 Thou/mm3 (1.8-7.7); Neutrophils % (Auto) 75 % (37-80); Nucleated Red Blood Cell # 0.00 Thou/mm3 (0.00-0.00); Nucleated Red Blood Cell % 0 /100 WBC (0); RDW Standard Deviation 47.8 fL (35.1-43.9); Red Blood Count 2.62 Miln/mm3 (4.50-5.90); White Blood Count 3.0 Thou/mm3 (3.8-10.6)
[2025-10-10 13:46] LABS: Hemoglobin 7.5 g/dL (13.5-16.0); Platelet Count 33 Thou/mm3 (140-440)
[2025-10-10 14:24] LABS: Slide Review Platelets confirmed
--- NOTE | 2025-10-10 14:26 | PD.RESPRO ---
Documentation for date of: 10/10/25 Subjective Subjective Interval history: Patient was seen and examined at bedside. Patient reports that he has had melanotic stools on and off for hx of chronic GI bleed. Overnight team was notified of an episode of A-fib with RVR HR 140 which corrected itself shortly thereafter without any intervention. Patient feeling fatigued in the morning. Hgb in the morning was 6.6, patient was transfused with additional unit of pRBC, one unit of plt, and FFP. He denies fevers, chest pain, SOB, abdominal pain, bleeding in urine, nausea/vomiting, hematemesis, or bright red blood per rectum. Exam Vital Signs Temp Pulse Resp BP Pulse Ox O2 Del Method O2 Flow Rate 98 F 70 20 106/52 L 94 L Room Air 0 10/10/25 13:59 10/10/25 13:59 10/10/25 13:59 10/10/25 13:59 10/10/25 13:59 10/10/25 12:00 10/10/25 13:59 Narrative Exam General: Alert and oriented x3, No apparent distress. Skin: Intact, Warm, no rashes. crusting and stigmata bleeding on Right forarm. HEENT: Normocephalic, Atraumatic. Normal neck range of motion, Supple. Trachea midline. Respiratory: Lungs are clear to auscultation. Breath sounds are equal bilaterally with good, symmetric chest expansion. Cardiovascular: RRR, normal S1, S2, No murmurs. Distal pulses 2+ Abdomen: Abdomen non-distended, without erythema, or lesions. Normotensive bowel sounds x4. Percussion tympanic. Palpation soft, nontender in all four quadrants. No organomagely. Absent rigidity, guarding, or rebound. present umbilical hernia. Musculoskeletal/Extremities: No erythema, swelling, tenderness of any joints. No edema of BLE. DP pulses +2/3 b/l. Full active ROM of all four extremities. 3+ left lower extremity and 2+ right lower extremity pitting edema. Neurologic: NEURO: Oriented x3, cranial nerves II to XII grossly intact. Muscle strength 5/5 on UE and LE b/l, Moves extremities x4. Sensation intact to gross touch along C6-T1 and L2-S1 dermatomes. No focal neurologic deficits noted Psych: Thoughts linear and responses appropriate. Objective Labs 10/10/25 13:13 10/10/25 04:20 Labs: Laboratory Results - last 24 hr 10/08/25 10/09/25 10/10/25 13:17 17:24 04:20 WBC 2.4 L RBC 2.34 L Hgb 6.6 L* Hct 20.5 L* MCV 88 MCH 28.2 MCHC 32.2 RDW Std Deviation 49.0 H Plt Count 18 L* D Neut % (Auto) 60 Lymph % (Auto) 10 [place] % (Auto) 12 Eos % (Auto) 12 H Baso % (Auto) 1 Neut # (Auto) 1.5 L Lymph # (Auto) 0.3 L [place] # (Auto) 0.3 Eos # (Auto) 0.3 Baso # (Auto) 0.0 Immature Gran # (Auto) 0.09 H Absolute Nucleated RBC 0.02 H Immature Gran % 4 H Nucleated RBC % 1 H Smear Path Review Sent to Pathologist Sodium 133 L Potassium 3.0 L Chloride 99 Carbon Dioxide 23.2 Anion Gap 11 BUN 27 H Creatinine 1.7 H Estim Creat Clear Calc 35.2 L eGFR 44 L BUN/Creatinine Ratio 16 Glucose 104 Calculated Osmolality 271 L Calcium 7.6 L Corrected Calcium 8.6 Magnesium 1.6 Total Bilirubin 4.2 H D AST 17 ALT 12 Alkaline Phosphatase 69 Troponin I 0.178 H* Total Protein 4.4 L Albumin 2.8 L Globulin 1.6 L Albumin/Globulin Ratio 1.8 Misc Test Result Platelets confirmed Blood Type AB Positive Antibody Screen NEGATIVE Crossmatch See Detail Blood Bank Wristband ID Yes Blood Bank Comment FFP Ready 10/10/25 13:13 WBC 3.0 L RBC 2.62 L Hgb 7.5 L Hct 23.1 L MCV 88 MCH 28.6 MCHC 32.5 RDW Std Deviation 47.8 H Plt Count 33 L D Neut % (Auto) 75 Lymph % (Auto) 7 L [place] % (Auto) 13 H Eos % (Auto) 1 Baso % (Auto) 1 Neut # (Auto) 2.3 Lymph # (Auto) 0.2 L [place] # (Auto) 0.4 Eos # (Auto) 0.0 Baso # (Auto) 0.0 Immature Gran # (Auto) 0.09 H Absolute Nucleated RBC 0.00 Immature Gran % 3 H Nucleated RBC % 0 Smear Path Review Sodium Potassium Chloride Carbon Dioxide Anion Gap BUN Creatinine Estim Creat Clear Calc eGFR BUN/Creatinine Ratio Glucose Calculated Osmolality Calcium Corrected Calcium Magnesium Total Bilirubin AST ALT Alkaline Phosphatase Troponin I Total Protein Albumin Globulin Albumin/Globulin Ratio Misc Test Result Platelets confirmed Blood Type Antibody Screen Crossmatch Blood Bank Wristband ID Blood Bank Comment Quality Measures Quality Measures none Advance care planning discussed with:: patient Assessment & Plan Assessment Current Active Medications: Generic Name Dose Route Start Last Admin Trade Name Niranjanq PRN Reason Stop Dose Admin Bumetanide 2 mg 10/10/25 09:00 10/10/25 09:18 Bumetanide Inj 0.25 Mg/Ml Vial 4 Ml IVP 11/09/25 08:59 2 mg QDAY LATRICE Administration Pantoprazole Sodium 80 mg in 100 mls @ 10 mls/hr 10/08/25 11:59 10/10/25 13:23 Protonix/Ns 80mg Iv Premix IV 10/11/25 09:58 10 mls/hr Q10H LATRICE Administration Ceftriaxone Sodium/Dextrose 1 gm in 50 mls @ 100 mls/hr 10/08/25 16:15 10/10/25 09:18 Rocephin/D5w 1gm Iv Premix IV 10/15/25 16:14 100 mls/hr QDAY LATRICE Administration Octreotide Acetate 1,000 mcg/ 102 mls @ 5.1 mls/hr 10/09/25 07:30 10/10/25 06:10 Sodium Chloride IV 10/13/25 12:00 50 mcg/hr .Q20H LATRICE 5.1 mls/hr Protocol Administration 50 MCG/HR Albumin Human 25 gm in 100 mls @ 100 mls/hr 10/09/25 14:00 10/10/25 13:15 Albuminex 25% Ivpb IV 10/14/25 13:59 100 mls/hr TID LATRICE Administration Sodium Chloride 500 mls @ 20 mls/hr 10/09/25 17:55 10/09/25 17:57 Ns IV 10/10/25 17:54 20 mls/hr .Q24H ONE Administration Lactulose 30 gm 10/08/25 21:00 10/10/25 10:37 Lactulose Syrup 20 Gm/30 Ml Udc PO 11/07/25 20:59 30 gm BID LATRICE Administration Protocol Midodrine 10 mg 10/08/25 22:00 10/10/25 13:15 Midodrine 5 Mg Tablet PO 11/07/25 21:59 10 mg TID LATRICE Administration Rifaximin 550 mg 10/08/25 21:00 10/10/25 09:19 Rifaximin 550 Mg Tablet PO 10/15/25 20:59 550 mg BID LATRICE Administration Plan A 63 year old male with significant past medical history of atrial fibrillation not on anticoagulation, alcoholic liver cirrhosis s/p TIPS, end-stage liver disease, GI bleeds, ascites, hyperlipidemia, s/p umbilical hernia surgery recurrent hospitalizations for GI bleed and hepatic encephalopathy presented to the ED on 10/08/2025 for evaluation of recent lightheadedness, difficulty breathing, and imbalance while ambulating. # Acute blood loss anemia # Esophageal varices, history of Patient had come in with 3-day history of lightheadedness, difficulty breathing and imbalance when walking. BP on presentation 84/38, and HR 87. hemoglobin 3.8. Patient received 1 L bolus of lactated Ringer's with improvement in blood pressure. + Hgb after 2u of PRBC, 5.1, patient was given 2 additional units, and his Hgb was 7.3 in a.m. labs. 10/09: EGD showed grade 1 varices in the lower third of the esophagus. Diffuse erythematous stomach mucosa with stigmata of recent bleeding characteristic of gastritis. Normal duodenum. 10/10: Hgb 6.3, patient was given 1u of pRBC, 1u of Plt and FFP. Post transfusion H&H 7.5 and 23.1. Plan -Octreotide infusion to continue for 5 days (10/09 - ) -s/p transfusion of 1u pRBC, Plt, and FFP with post transfusion H&H ordered. -Started octreotide infusion. -GI, Dr Koch, consulted; appreciate recommendations. -Pantoprazole 40 Mg IV twice daily. -Repeat H&H after completion of transfusions. -Started on ceftriaxone and will continue rifaximin. -Will consult principal scientist Dr. Koch, appreciate recommendations # History of decompensated cirrhosis s/p TIPS #2/2 chronic alcohol abuse #hx of hepatic encephalopathy # Hyperbilirubinemia # Coagulopathy # Leukopenia # Thrombocytopenia -PT 17, INR 1.7, APTT 35 -Patient has had history of cirrhosis for almost 16 years from now. -Patient had bilateral pedal edema extending upto knees -Using bumetanide, spironolactone at home MELD-Na score 30: 52.6% risk of mortality in the next 3mo Maddrey's score 36.7 indicating poor prognosis and potential benefit from glucocorticoid therapy Plan: - albumin IV 25g TID (10/08-10/14) - Bumex IVP 2mg Qday, holding spirinolactone iso HoTN - ceftriaxone 1g Qday for PPx SBP - continue lactulose p.o. 30gm twice daily - continue rifaximin PO 550 bid #History of paroxysmal atrial fibrillation #NSTEMI Type I vs II -Patient has irregularly irregular heart rate as seen on EKG. -Patient was admitted with chronic anemia 2/2 UGIB + 10/09: Troponin still in increasing trend. 0.120-> 0.146 -> 0.209. -Patient is following with lead vulcanizing operator, Dr. Reyez -INR 1.7 -Has bled score 3. +10/10 trops trended down to .178 Plan -cardiology, Jimenez Reyez, consulted; appreciate recommendations. -Patient is not a good candidate for anticoagulation therapy iso GI bleed and pancytopenia -As expected in the setting of cirrhosis with coagulopathy -Pending echo -Keep Mg >2 and K>4 #CKD stage III #CHEL iso CKD - Patient is having CKD since 1 year, creatinine is around 1.4 at baseline - Creatinine at the time of admission is 1.9, - downtrending 1.8, and 1.7 Plan - Will continue to monitor renal functions - Will avoid nephrotoxic medications and renally dose medications Health Maintenance: Hospital disposition:Tele GI prophylaxis: Pantoprazole Diet: Low sodium Code Status: Routine This case was discussed with my attending physician, Dr. Martin, and senior resident, Dr Pickett. Even though this this note was carefully revised there may still be minor errors in dice maker due to voice recognition software. Marques Caraballo, PGY I Senior Resident Attestation: The patient reported doing much better this morning. The patient underwent EGD last night, and was found to have grade 1 esophageal varices. We will continue with octreotide for 5 days. Will continue with pantoprazole, ceftriaxone, bumetanide, lactulose, rifaximin. I discussed with and supervised the qa internship physician involved in the care of this patient. I personally saw and examined the patient and discussed the assessment and plan with the entire medicine team, including my attending. I agree with the assessment and plan as documented above. Darrian Pickett MD PGY3 Internal Medicine Attending Provider Attestation/Addendum I have discussed and was present for the essential components of the history, physical examination, diagnosis, and treatment plan with the resident. I agree with the patient's care as documented by the resident and amended herein by me. Mike Martin DO. Although this document has been carefully reviewed, there may still be some phonetic and other typographical errors. These errors are purely grammatical due to imperfections in the software program and should not be construed in any way to compromise the substance of the patient's medical care during this visit. Patient seen and evaluated this AM. No acute events overnight, vital signs stable, patient afebrile, significant labs including WBC of 2.4, hemoglobin 6.6 this morning in which the patient was transfused, platelets 18, FFP was given as well. Tropes are downtrending, sodium 133, potassium 3.0 which has been repleted and slightly improved creatinine 1.7 today. Upper endoscopy was performed last night demonstrating grade 1 esophageal varices, erythematous mucosa in the stomach, and a normal duodenum. GI bleed likely stemming from the erythematous mucosa in the stomach. As such we will continue Protonix, low-sodium diet and octreotide infusion for a total of 5 days. Will also continue ceftriaxone, lactulose, midodrine and rifaximin as well. Will continue to monitor closely, the patient is in good spirits today, his mother was at bedside, likely DC in 3 additional days pending clinical improvement and medication administration.
--- NOTE | 2025-10-10 19:55 | PD.IMPROG ---
Documentation for date of: 10/10/25 Subjective Subjective Interval history: Patient evaluated Hemoglobin hematocrit 7.5 and 23.1 Upper endoscopy showed mucosal oozing of blood patient on octreotide Exam Vital Signs Temp Pulse Resp BP Pulse Ox O2 Del Method O2 Flow Rate 97.8 F 71 17 115/56 L 94 L Room Air 0 10/10/25 19:45 10/10/25 19:45 10/10/25 19:45 10/10/25 19:45 10/10/25 19:45 10/10/25 19:45 10/10/25 15:07 Objective Labs 10/10/25 13:13 10/10/25 04:20 Labs: Laboratory Results - last 24 hr 10/08/25 10/10/25 10/10/25 13:17 04:20 13:13 WBC 2.4 L 3.0 L RBC 2.34 L 2.62 L Hgb 6.6 L* 7.5 L Hct 20.5 L* 23.1 L MCV 88 88 MCH 28.2 28.6 MCHC 32.2 32.5 RDW Std Deviation 49.0 H 47.8 H Plt Count 18 L* D 33 L D Neut % (Auto) 60 75 Lymph % (Auto) 10 7 L [place] % (Auto) 12 13 H Eos % (Auto) 12 H 1 Baso % (Auto) 1 1 Neut # (Auto) 1.5 L 2.3 Lymph # (Auto) 0.3 L 0.2 L [place] # (Auto) 0.3 0.4 Eos # (Auto) 0.3 0.0 Baso # (Auto) 0.0 0.0 Immature Gran # (Auto) 0.09 H 0.09 H Absolute Nucleated RBC 0.02 H 0.00 Immature Gran % 4 H 3 H Nucleated RBC % 1 H 0 Smear Path Review Sent to Pathologist Sodium 133 L Potassium 3.0 L Chloride 99 Carbon Dioxide 23.2 Anion Gap 11 BUN 27 H Creatinine 1.7 H Estim Creat Clear Calc 35.2 L eGFR 44 L BUN/Creatinine Ratio 16 Glucose 104 Calculated Osmolality 271 L Calcium 7.6 L Corrected Calcium 8.6 Magnesium 1.6 Total Bilirubin 4.2 H D AST 17 ALT 12 Alkaline Phosphatase 69 Total Protein 4.4 L Albumin 2.8 L Globulin 1.6 L Albumin/Globulin Ratio 1.8 Misc Test Result Platelets confirmed Platelets confirmed Blood Type AB Positive Antibody Screen NEGATIVE Crossmatch See Detail Blood Bank Wristband ID Yes Blood Bank Comment FFP Ready Impressions Impression: Hypertensive portal gastropathy leading to mucosal oozing of blood Continue octreotide infusion and follow CBC Assessment & Plan Time Spent With Patient Time: Total time spent is greater than 50% in coordination of care (as documented) at patient's floor/unit and/or counseling patient:
[2025-10-11] VITALS (10 sets, daily range): BP systolic 93–111; BP diastolic 45–65; PULSE 70–89; RESP 12–24; TEMP 36.3–36.7; O2SAT 95–98
[2025-10-11] MEDS: OCTREOTIDE ACET INJ 1,000 MCG in SODIUM CHLORIDE 0.9% 100 ML 5.1 MCG IV ×2 (03:05→22:32)
[2025-10-11] MEDS: MIDODRINE 5 MG TABLET 10 MG PO ×3 (05:34→21:21)
[2025-10-11] MEDS: ALBUMIN HUMAN-KJDA 25% IVPB 25 GM/100 ML BTL IV ×3 (05:36→21:21)
[2025-10-11 06:05] LABS: Basophils # (Auto) 0.0 Thou/mm3 (0.0-0.2); Basophils % (Auto) 1 % (0-2.5); Eosinophils # (Auto) 0.1 Thou/mm3 (0.0-0.5); Eosinophils % (Auto) 4 % (0-10); Hematocrit 22.9 % (41.0-53.0); Immature Granulocytes Auto 0.09 Thou/mm3 (0.00-0.00); Lymphocytes # (Auto) 0.3 Thou/mm3 (1.0-4.8); Lymphocytes % (Auto) 9 % (10-50); Mean Corpuscular HGB Conc 32.3 g/dl (31.0-37.0); Mean Corpuscular Hemoglobin 29.2 pg (25.0-35.0); Mean Corpuscular Volume 91 fL (80-100); Monocytes # (Auto) 0.4 Thou/mm3 (0.0-0.8); Monocytes % (Auto) 14 % (0-12); Neutrophils # (Auto) 2.0 Thou/mm3 (1.8-7.7); Neutrophils % (Auto) 69 % (37-80); Nucleated Red Blood Cell # 0.00 Thou/mm3 (0.00-0.00); Nucleated Red Blood Cell % 0 /100 WBC (0); RDW Standard Deviation 50.3 fL (35.1-43.9); Red Blood Count 2.53 Miln/mm3 (4.50-5.90); White Blood Count 3.0 Thou/mm3 (3.8-10.6)
[2025-10-11 06:06] LABS: Hemoglobin 7.4 g/dL (13.5-16.0)
[2025-10-11 06:07] LABS: Platelet Count 29 Thou/mm3 (140-440)
[2025-10-11 06:19] LABS: Slide Review Platelets confirmed
[2025-10-11 06:38] LABS: Alanine Aminotransferase 10 U/L (10-49); Albumin, Serum 3.1 gm/dL (3.4-4.8); Albumin/Globulin Ratio 1.7 (1.2-2.2); Alkaline Phosphatase 62 U/L (46-116); Anion Gap 11 (7-16); Aspartate Amino Transferase 16 U/L (0-34); BUN/Creatinine Ratio 12 Ratio (12-20); Bilirubin,Total 3.8 mg/dL (0.3-1.2); Blood Urea Nitrogen 19 mg/dL (9-23); Calcium 7.8 mg/dL (8.3-10.6); Calcium (Corrected) 8.5 mg/dL (8.5-10.1); Carbon Dioxide 24.4 mMol/L (20.0-31.0); Chloride 102 mMol/L (98-107); Creatinine (Component) 1.6 mg/dL (0.6-1.3); Estimated Creatinine Clearance 37.4 mL/min (>60); Globulin 1.8 gm/dL (2.3-3.5); Glucose 110 mg/dL (74-106); Magnesium 1.6 mg/dL (1.6-2.6); Osmolality,Calculated 277 (275-295); Potassium 3.3 mMol/L (3.4-5.1); Sodium 137 mMol/L (136-145); Total Protein 4.9 gm/dL (5.7-8.2); eGFR 47 See Note
[2025-10-11] MEDS: cefTRIAXone/D5w 1gm IV premix 1 GM/50 ML BAG IV (09:05)
[2025-10-11] MEDS: MAGNESIUM OXIDE 400 MG TABLET PO (09:05)
--- NOTE | 2025-10-11 09:31 | ESPR_ITS ---
Documentation for date of: 10/11/25 Subjective Subjective Interval history: Patient seen and examined at bedside, has significant bilateral lower extremity edema extending up to hips. Does have history of cirrhosis on Bumex 2 mg p.o. twice daily and spironolactone 25 mg daily at home. We recommend starting patient on Bumex 2 mg IV twice daily, use midodrine to uptitrate SBP or patient can be challenged with albumin. Otherwise patient's respiratory status is stable currently on room air. Low potassium noted, was repleted by primary team. Will give IV magnesium to keep magnesium greater than 2. Patient continues to be on octreotide drip, has to complete 2 days of octreotide. Exam Vital Signs Temp Pulse Resp BP Pulse Ox O2 Del Method O2 Flow Rate 98.0 F 70 18 100/50 L 98 Room Air 0 10/11/25 07:58 10/11/25 07:58 10/11/25 07:58 10/11/25 07:58 10/11/25 07:58 10/11/25 07:58 10/10/25 15:07 Narrative Exam General: No acute distress, well nourished, AAO x3 Eye: PERRL, EOMI, normal conjunctiva, no scleral icterus HENT: hearing intact to conversation at normal volume, moist oral mucosa, Ecchymosis below right ear and lower chin. Left IJ central line noted. Neck: Supple, non-tender, no JVD, no lymphadenopathy Lungs: Non-labored respirations, symmetric chest rise, Clear to auscultate bilaterally, No wheezing, rhonchi, crackles Heart: Peripheral pulses intact bilaterally, Regular Rate and Rhythm. Abdomen: Soft, non-tender, non-distended, no palpable masses Musculoskeletal: 2+ pitting edema on Bilateral LE extending to his thigh and +1 pitting edema on Bilateral UE. Skin: Skin is warm, dry, no rashes or lesions. Ecchymosis on bilateral hands and inner thighs. Psychiatric: Cooperative, appropriate mood and affect, Awake and alert, not agitated Neuro: Cranial nerves II-XII grossly intact. Sensations intact to light touch. Objective Labs 10/12/25 06:14 10/12/25 06:14 Labs: Laboratory Results - last 24 hr 10/08/25 10/10/25 10/11/25 13:17 13:13 04:49 WBC 3.0 L 3.0 L RBC 2.62 L 2.53 L Hgb 7.5 L 7.4 L Hct 23.1 L 22.9 L MCV 88 91 MCH 28.6 29.2 MCHC 32.5 32.3 RDW Std Deviation 47.8 H 50.3 H Plt Count 33 L D 29 L* Neut % (Auto) 75 69 Lymph % (Auto) 7 L 9 L [place] % (Auto) 13 H 14 H Eos % (Auto) 1 4 Baso % (Auto) 1 1 Neut # (Auto) 2.3 2.0 Lymph # (Auto) 0.2 L 0.3 L [place] # (Auto) 0.4 0.4 Eos # (Auto) 0.0 0.1 Baso # (Auto) 0.0 0.0 Immature Gran # (Auto) 0.09 H 0.09 H Absolute Nucleated RBC 0.00 0.00 Immature Gran % 3 H 3 H Nucleated RBC % 0 0 Sodium 137 Potassium 3.3 L Chloride 102 Carbon Dioxide 24.4 Anion Gap 11 BUN 19 Creatinine 1.6 H Estim Creat Clear Calc 37.4 L eGFR 47 L BUN/Creatinine Ratio 12 Glucose 110 H Calculated Osmolality 277 Calcium 7.8 L Corrected Calcium 8.5 Magnesium 1.6 Total Bilirubin 3.8 H AST 16 ALT 10 Alkaline Phosphatase 62 Total Protein 4.9 L Albumin 3.1 L Globulin 1.8 L Albumin/Globulin Ratio 1.7 Misc Test Result Platelets confirmed Platelets confirmed Blood Type AB Positive Antibody Screen NEGATIVE Crossmatch See Detail Blood Bank Wristband ID Yes Blood Bank Comment FFP Ready Quality Measures Quality Measures none Advance care planning discussed with:: patient Assessment & Plan Assessment Current Active Medications: Generic Name Dose Route Start Last Admin Trade Name Freq PRN Reason Stop Dose Admin Pantoprazole Sodium 80 mg in 100 mls @ 10 mls/hr 10/08/25 11:59 10/10/25 23:57 Protonix/Ns 80mg Iv Premix IV 10/11/25 09:58 10 mls/hr Q10H LATRICE Administration Ceftriaxone Sodium/Dextrose 1 gm in 50 mls @ 100 mls/hr 10/08/25 16:15 10/11/25 09:05 Rocephin/D5w 1gm Iv Premix IV 10/15/25 16:14 100 mls/hr QDAY LATRICE Administration Octreotide Acetate 1,000 mcg/ 102 mls @ 5.1 mls/hr 10/09/25 07:30 10/11/25 03:05 Sodium Chloride IV 10/13/25 12:00 50 mcg/hr .Q20H LATRICE 5.1 mls/hr Protocol Administration 50 MCG/HR Magnesium Sulfate 4 gm in 50 mls @ 12.5 mls/hr 10/11/25 09:24 Magnesium Sulfate Ivpb IV 10/11/25 13:23 X1 ONE Lactulose 30 gm 10/11/25 12:00 Lactulose Syrup 20 Gm/30 Ml Udc PO 11/10/25 11:59 QID LATRICE Protocol Magnesium Oxide 400 mg 10/12/25 09:00 Magnesium Oxide 400 Mg Tablet PO 11/11/25 08:59 QDAY LATRICE Midodrine 10 mg 10/08/25 22:00 10/11/25 05:34 Midodrine 5 Mg Tablet PO 11/07/25 21:59 10 mg TID LATRICE Administration Potassium Chloride 20 meq 10/11/25 08:30 10/11/25 09:05 Potassium Chloride 20 Meq Tabcr PO 10/11/25 17:31 20 meq BIDWM LATRICE Administration Rifaximin 550 mg 10/08/25 21:00 10/11/25 09:05 Rifaximin 550 Mg Tablet PO 10/15/25 20:59 550 mg BID LATRICE Administration Plan Assessment and plan: Summary: Mr. Isaac is a 64-year-old male with past medical history of decompensated cirrhosis status post TIPS following [facility] and Dr. Koch, esophageal varices, hypertensive portal gastropathy, pancytopenia, paroxysmal atrial fibrillation, hyperlipidemia,Diastolic heart failure, EF 50 to 55% 10/2025 and remote history of alcohol use who presented to [facility] emergency department on 10/2025 for 2 to 3 days of worsening shortness of breath and dizziness, patient found to have severely low hemoglobin of 3.8 and was admitted for further GI bleed workup. Cardiology consulted for troponin elevation and fluid overload status. #Fluid overload status, anasarca #Acute decompensated heart failure and cirrhosis #Heart failure with preserved ejection fraction, EF 50 to 55% #Diastolic heart failure #Elevated RVSP 61 mmHg Patient presented with some symptoms of shortness of breath, on physical exam patient generalized anasarca, bilateral upper and lower extremity swelling noted. Patient on Bumex 2 mg p.o. twice daily and spironolactone 25 mg p.o. daily at home, reports compliance. Patient seen at [facility] for liver transplant evaluation however as age is greater than 65 patient was transition from the active list. Transthoracic echocardiogram 10/08/2025: 1. Left ventricle size is normal and systolic function is normal. Estimated ejection fraction is 50-55%. grade 1 diastolic function. 2. Right ventricle chamber size is mildly enlarged and systolic function is normal. Estimated RVSP is 61 mmHg. Moderate to severe HTN. 3. Flattening of the ventricular septum in mid to late systole consistent with right ventricular pressure overload. 4. Mild Aortic stenosis and trace aortic regurgitation. 5. There is mild mitral valve stenosis and mild regurgitation. 6. There is mild tricuspid valve regurgitation. 7. The left atrium is mildly enlarged. The right atrium is normal. 8. Dilated IVC with estimated RA pressure 15 mmHg. Recommendations: - Patient had significantly dilated IVC with estimated RA pressure 15 mm, significant RVSP 61 this is secondary to patient's fluid overload status - Patient needs IV diuresis, we recommend Bumex 2 mg IV twice daily, continue midodrine - Strict intake and output, daily weight, fluid restriction 1500 cc, low-sodium diet. - Goal hospitalization -3 to 5 L for diuresis. #Atrial fibrillation, rate controlled Patient has history of atrial fibrillation, not on anticoagulation because of advanced cirrhosis and frequent GI bleed history. Patient noted to have left atrium enlargement on echo. [id number] Score: 2 points, HAS BLED score 4 points - Telemetry monitoring #NSTEMI type II, demand ischemia Patient denies any chest pain, EKG on presentation shows no acute ST-T changes Troponin trend. 0.120-> 0.146 -> 0.209 -> 0.178 Lipid panel 10/09/2025 triglyceride 53, cholesterol 88, HDL 16, LDL 61 cholesterol/HDL ratio 5.5 TSH 04/25/2025 0.81 Hemoglobin A1c 08/15/2024 less than 4.2 ASCVD risk score 9.9%, moderate to high intensity statin recommended Recommendations: - Monitor for chest pain - Consider high intensity statin, atorvastatin 40 mg at bedtime for risk factor modification - Patient will need ischemia workup outpatient, recent echocardiogram was negative for any wall motion abnormalities. - Will schedule patient outpatient for stress test and possible cardiac catheterization. #Acute decompensated cirrhosis #Upper GI variceal bleed #Hepatic encephalopathy, by history #Hyperbilirubinemia #Coagulopathy #Leukopenia #Thrombocytopenia #CKD stage III #CHEL on CKD, improving Management per primary team Thank you for the consult and allowing to participate in the care of the patient. Cardiology will continue to follow. Case discussed with Attending Physician Dr. Charanjit Cheung MD Internal Medicine PGY-2 Disclaimer: This note was dictated by speech recognition. Minor errors in fire alarm dispatcher may be present due to voice recognition software. Attending Provider Attestation/Addendum I have personally seen and examined the patient separately on the above date of service and discussed the plan of care with the resident. I reviewed the resident Dr. Lisa Cheung consultation progress note and agree with the resident findings and plan in the note above and have also edited the documentation to reflect my findings and plan. Charanjit Reyez M.D. Interventional Cardiology
[2025-10-11] MEDS: Magnesium Sulfate 2 GM Ivpb 2 GM/50 ML BAG IV (10:08)
--- NOTE | 2025-10-11 12:23 | ESPR_ITS ---
<Statement entered by Philip Maria MD - 10/11/25 14:40> I saw and examined patient personally and supervised PGY 1 resident, Dr. Caraballo with formulating a management plan. I agree with the documentation with the exceptions as listed below. Patient currently on day 4 of octreotide infusion to complete on 10/12. Diuresis was held due to patient appearing clinically hypovolemic and presenting with blood loss anemia. He is BUN and creatinine did improve after initial albumin challenge, will resume albumin 25 g IV 3 times daily for today. Continues to be on midodrine 10 mg p.o. 3 times daily for blood pressure support. After octreotide infusion completion on 10/12, anticipate discharge. Plan of care discussed with Attending Dr. Mario Maria MD PGY 2 Disclaimer: This note was dictated by speech recognition. Minor errors in personnel arbitrator may be present due to voice recognition software. Documentation for date of: 10/11/25 Subjective Subjective Interval history: Patient was seen and examined at bedside. Patient states that he had coughs when lying down at night which caused abdominal discomfort. Patient reports that he has had melanotic stools on and off for hx of chronic GI bleed; hadhowever, with the two latest brief changes, nurse had told the patient that they were green and brown with no trace of blood of melena. He denies fevers, chest pain, SOB, abdominal pain, bleeding in urine, nausea/vomiting, hematemesis, or bright red blood per rectum. Exam Vital Signs Temp Pulse Resp BP Pulse Ox O2 Del Method O2 Flow Rate 98.0 F 70 18 100/50 L 98 Room Air 0 10/11/25 07:58 10/11/25 07:58 10/11/25 07:58 10/11/25 07:58 10/11/25 07:58 10/11/25 07:58 10/10/25 15:07 Narrative Exam General: Alert and oriented x3, No apparent distress. Skin: Intact, Warm, no rashes. crusting and stigmata bleeding on Right forarm. HEENT: Normocephalic, Atraumatic. Normal neck range of motion, Supple. Trachea midline. Respiratory: Lungs are clear to auscultation. Breath sounds are equal bilaterally with good, symmetric chest expansion. Cardiovascular: RRR, normal S1, S2, No murmurs. Distal pulses 2+ Abdomen: Abdomen non-distended, without erythema, or lesions. Normotensive bowel sounds x4. Percussion tympanic. Palpation soft, nontender in all four quadrants. No organomagely. Absent rigidity, guarding, or rebound. present umbilical hernia. Musculoskeletal/Extremities: No erythema, swelling, tenderness of any joints. No edema of BLE. DP pulses +2/3 b/l. Full active ROM of all four extremities. 3+ left lower extremity and 2+ right lower extremity pitting edema. Neurologic: NEURO: Oriented x3, cranial nerves II to XII grossly intact. Muscle strength 5/5 on UE and LE b/l, Moves extremities x4. Sensation intact to gross touch along C6-T1 and L2-S1 dermatomes. No focal neurologic deficits noted Psych: Thoughts linear and responses appropriate. Objective Labs 10/11/25 04:49 10/11/25 04:49 Labs: Laboratory Results - last 24 hr 10/08/25 10/10/25 10/11/25 13:17 13:13 04:49 WBC 3.0 L 3.0 L RBC 2.62 L 2.53 L Hgb 7.5 L 7.4 L Hct 23.1 L 22.9 L MCV 88 91 MCH 28.6 29.2 MCHC 32.5 32.3 RDW Std Deviation 47.8 H 50.3 H Plt Count 33 L D 29 L* Neut % (Auto) 75 69 Lymph % (Auto) 7 L 9 L [place] % (Auto) 13 H 14 H Eos % (Auto) 1 4 Baso % (Auto) 1 1 Neut # (Auto) 2.3 2.0 Lymph # (Auto) 0.2 L 0.3 L [place] # (Auto) 0.4 0.4 Eos # (Auto) 0.0 0.1 Baso # (Auto) 0.0 0.0 Immature Gran # (Auto) 0.09 H 0.09 H Absolute Nucleated RBC 0.00 0.00 Immature Gran % 3 H 3 H Nucleated RBC % 0 0 Sodium 137 Potassium 3.3 L Chloride 102 Carbon Dioxide 24.4 Anion Gap 11 BUN 19 Creatinine 1.6 H Estim Creat Clear Calc 37.4 L eGFR 47 L BUN/Creatinine Ratio 12 Glucose 110 H Calculated Osmolality 277 Calcium 7.8 L Corrected Calcium 8.5 Magnesium 1.6 Total Bilirubin 3.8 H AST 16 ALT 10 Alkaline Phosphatase 62 Total Protein 4.9 L Albumin 3.1 L Globulin 1.8 L Albumin/Globulin Ratio 1.7 Misc Test Result Platelets confirmed Platelets confirmed Blood Type AB Positive Antibody Screen NEGATIVE Crossmatch See Detail Blood Bank Wristband ID Yes Blood Bank Comment FFP Ready Quality Measures Quality Measures none Advance care planning discussed with:: patient Assessment & Plan Assessment Current Active Medications: Generic Name Dose Route Start Last Admin Trade Name Freq PRN Reason Stop Dose Admin Ceftriaxone Sodium/Dextrose 1 gm in 50 mls @ 100 mls/hr 10/08/25 16:15 10/11/25 09:05 Rocephin/D5w 1gm Iv Premix IV 10/15/25 16:14 100 mls/hr QDAY LATRICE Administration Octreotide Acetate 1,000 mcg/ 102 mls @ 5.1 mls/hr 10/09/25 07:30 10/11/25 03:05 Sodium Chloride IV 10/13/25 12:00 50 mcg/hr .Q20H LATRICE 5.1 mls/hr Protocol Administration 50 MCG/HR Albumin Human 25 gm in 100 mls @ 100 mls/hr 10/11/25 14:00 Albuminex 25% Ivpb IV 10/14/25 13:59 TID LATRICE Lactulose 30 gm 10/11/25 12:00 Lactulose Syrup 20 Gm/30 Ml Udc PO 11/10/25 11:59 QID LATRICE Protocol Magnesium Oxide 400 mg 10/12/25 09:00 Magnesium Oxide 400 Mg Tablet PO 11/11/25 08:59 QDAY LATRICE Midodrine 10 mg 10/08/25 22:00 10/11/25 05:34 Midodrine 5 Mg Tablet PO 11/07/25 21:59 10 mg TID LATRICE Administration Pantoprazole Sodium 40 mg 10/11/25 11:45 Pantoprazole Inj 40 Mg Vial IVP 11/10/25 11:44 BID LATRICE Potassium Chloride 20 meq 10/11/25 08:30 10/11/25 09:05 Potassium Chloride 20 Meq Tabcr PO 10/11/25 17:31 20 meq BIDWM LATRICE Administration Rifaximin 550 mg 10/08/25 21:00 10/11/25 09:05 Rifaximin 550 Mg Tablet PO 10/15/25 20:59 550 mg BID LATRICE Administration Plan A 63 year old male with significant past medical history of atrial fibrillation not on anticoagulation, alcoholic liver cirrhosis s/p TIPS, end-stage liver disease, GI bleeds, ascites, hyperlipidemia, s/p umbilical hernia surgery recurrent hospitalizations for GI bleed and hepatic encephalopathy presented to the ED on 10/08/2025 for evaluation of recent lightheadedness, difficulty breathing, and imbalance while ambulating. # Acute blood loss anemia # Esophageal varices, history of Patient had come in with 3-day history of lightheadedness, difficulty breathing and imbalance when walking. BP on presentation 84/38, and HR 87. hemoglobin 3.8. Patient received 1 L bolus of lactated Ringer's with improvement in blood pressure. + Hgb after 2u of PRBC, 5.1, patient was given 2 additional units, and his Hgb was 7.3 in a.m. labs. 10/09: EGD showed grade 1 varices in the lower third of the esophagus. Diffuse erythematous stomach mucosa with stigmata of recent bleeding characteristic of gastritis. Normal duodenum. 10/10: Hgb 6.3, patient was given 1u of pRBC, 1u of Plt and FFP. Post transfusion H&H 7.5 and 23.1. Plan -Octreotide infusion to continue for 5 days (10/08 - ) -Pantoprazole 40 Mg IV twice daily. -GI, Dr Koch, consulted; appreciate recommendations. -Repeat H&H after completion of transfusions. -Started on ceftriaxone and will continue rifaximin. -Will consult traffic law attorney Dr. Koch, appreciate recommendations #CHEL iso CKD #Hepatorenal syndrome #CKD stage III - Patient is having CKD since 1 year, creatinine is around 1.4 at baseline - Creatinine at the time of admission is 1.9, - downtrending 1.8, and 1.7, 1.6 Plan - midodrine PO 10mg TID for BP support - albumin IV 25g TID (10/08-10/14) - Diuretics on hold until notable improvement in kidney function. Although patient appears wet on exam, ECV is low: Fluid is not within the vascular compartment. Patient is hypotensive. - Will continue to monitor renal functions - Will avoid nephrotoxic medications and renally dose medications #Decompensated cirrhosis s/p TIPS #2/2 chronic alcohol abuse #hx of hepatic encephalopathy # Hyperbilirubinemia # Coagulopathy # Leukopenia # Thrombocytopenia -PT 17, INR 1.7, APTT 35 -Patient has had history of cirrhosis for almost 16 years from now. -Patient had bilateral pedal edema extending upto knees -Using bumetanide, spironolactone at home MELD-Na score 30: 52.6% risk of mortality in the next 3mo Maddrey's score 36.7 indicating poor prognosis and potential benefit from glucocorticoid therapy Plan: - albumin IV 25g TID (10/08-10/14) - Bumex IVP 2mg and spirinolactone held iso low EFCV and hypotension: the fluid overload is not within the vascular compartment. - ceftriaxone 1g Qday for PPx SBP - continue lactulose p.o. 30gm beena to QID to stimulate 2-3BM/d - continue rifaximin PO 550 bid #History of paroxysmal atrial fibrillation #NSTEMI Type I vs II -Patient has irregularly irregular heart rate as seen on EKG. -Patient was admitted with chronic anemia 2/2 UGIB + 10/09: Troponin still in increasing trend. 0.120-> 0.146 -> 0.209. -Patient is following with day care center director, Dr. Reyez -INR 1.7 +10/10 trops trended down to .178 + [id number] Score: 2 points, HAS BLED score 4 points - Telemetry monitoring TTE echo showed Normal LV size and fx. EF 50-55%. Grade 1 diastolic dysfx. Mildly enlarged RV. Mild tricuspid and mitral valve regurg. IVC dilated. RA 15mm and RVSP 61. Plan -cardiology, Jimenez Reyez, consulted; appreciate recommendations. -Patient is not a good candidate for anticoagulation therapy iso GI bleed and pancytopenia -As expected in the setting of cirrhosis with coagulopathy -Keep Mg >2 and K>4 Health Maintenance: Hospital disposition:Tele GI prophylaxis: Pantoprazole Diet: Low sodium Code Status: Routine This case was discussed with my attending physician, Dr. Martin, and senior resident, Dr Maria. Even though this this note was carefully revised there may still be minor errors in personnel arbitrator due to voice recognition software. Marques Caraballo DO PGY I Attending Provider Attestation/Addendum I have discussed and was present for the essential components of the history, physical examination, diagnosis, and treatment plan with the resident. I agree with the patient's care as documented by the resident and amended herein by me. Mike Martin DO. Although this document has been carefully reviewed, there may still be some phonetic and other typographical errors. These errors are purely grammatical due to imperfections in the software program and should not be construed in any way to compromise the substance of the patient's medical care during this visit.
[2025-10-11] MEDS: LACTULOSE SYRUP 20 GM/30 ML UDC 30 GM PO ×3 (12:26→21:19)
--- NOTE | 2025-10-11 17:38 | ESPR_ITS ---
Documentation for date of: 10/11/25 Subjective Subjective Interval history: Hemoglobin hematocrit 7.4 and 22.9 Exam Vital Signs Temp Pulse Resp BP Pulse Ox O2 Del Method O2 Flow Rate 97.8 F 80 24 H 108/65 98 Room Air 0 10/11/25 16:00 10/11/25 16:00 10/11/25 16:00 10/11/25 16:00 10/11/25 16:00 10/11/25 16:00 10/10/25 15:07 Objective Labs 10/11/25 04:49 10/11/25 04:49 Labs: Laboratory Results - last 24 hr 10/08/25 10/11/25 13:17 04:49 WBC 3.0 L RBC 2.53 L Hgb 7.4 L Hct 22.9 L MCV 91 MCH 29.2 MCHC 32.3 RDW Std Deviation 50.3 H Plt Count 29 L* Neut % (Auto) 69 Lymph % (Auto) 9 L [place] % (Auto) 14 H Eos % (Auto) 4 Baso % (Auto) 1 Neut # (Auto) 2.0 Lymph # (Auto) 0.3 L [place] # (Auto) 0.4 Eos # (Auto) 0.1 Baso # (Auto) 0.0 Immature Gran # (Auto) 0.09 H Absolute Nucleated RBC 0.00 Immature Gran % 3 H Nucleated RBC % 0 Sodium 137 Potassium 3.3 L Chloride 102 Carbon Dioxide 24.4 Anion Gap 11 BUN 19 Creatinine 1.6 H Estim Creat Clear Calc 37.4 L eGFR 47 L BUN/Creatinine Ratio 12 Glucose 110 H Calculated Osmolality 277 Calcium 7.8 L Corrected Calcium 8.5 Magnesium 1.6 Total Bilirubin 3.8 H AST 16 ALT 10 Alkaline Phosphatase 62 Total Protein 4.9 L Albumin 3.1 L Globulin 1.8 L Albumin/Globulin Ratio 1.7 Misc Test Result Platelets confirmed Crossmatch See Detail Blood Bank Comment FFP Ready Impressions Impression: Hypertensive portal gastropathy leading to mucosal oozing of blood Continue octreotide infusion Assessment & Plan Time Spent With Patient Time: Total time spent is greater than 50% in coordination of care (as documented) at patient's floor/unit and/or counseling patient:
[2025-10-12] VITALS (13 sets, daily range): BP systolic 93–124; BP diastolic 52–73; PULSE 67–87; RESP 13–18; TEMP 36.1–36.6; O2SAT 93–100; BMI 18.4; BMI 29.5
[2025-10-12] MEDS: MIDODRINE 5 MG TABLET 10 MG PO (05:28)
[2025-10-12] MEDS: ALBUMIN HUMAN-KJDA 25% IVPB 25 GM/100 ML BTL IV ×2 (05:28→13:45)
[2025-10-12 06:40] LABS: Basophils # (Auto) 0.0 Thou/mm3 (0.0-0.2); Basophils % (Auto) 1 % (0-2.5); Eosinophils # (Auto) 0.2 Thou/mm3 (0.0-0.5); Eosinophils % (Auto) 6 % (0-10); Hematocrit 22.8 % (41.0-53.0); Immature Granulocytes Auto 0.07 Thou/mm3 (0.00-0.00); Lymphocytes # (Auto) 0.3 Thou/mm3 (1.0-4.8); Lymphocytes % (Auto) 14 % (10-50); Mean Corpuscular HGB Conc 31.1 g/dl (31.0-37.0); Mean Corpuscular Hemoglobin 28.7 pg (25.0-35.0); Mean Corpuscular Volume 92 fL (80-100); Monocytes # (Auto) 0.3 Thou/mm3 (0.0-0.8); Monocytes % (Auto) 13 % (0-12); Neutrophils # (Auto) 1.6 Thou/mm3 (1.8-7.7); Neutrophils % (Auto) 63 % (37-80); Nucleated Red Blood Cell # 0.00 Thou/mm3 (0.00-0.00); Nucleated Red Blood Cell % 0 /100 WBC (0); RDW Standard Deviation 52.2 fL (35.1-43.9); Red Blood Count 2.47 Miln/mm3 (4.50-5.90); White Blood Count 2.5 Thou/mm3 (3.8-10.6)
[2025-10-12 07:13] LABS: Hemoglobin 7.1 g/dL (13.5-16.0)
[2025-10-12 07:14] LABS: Platelet Count 23 Thou/mm3 (140-440)
[2025-10-12 07:27] LABS: Alanine Aminotransferase 9 U/L (10-49); Albumin, Serum 3.5 gm/dL (3.4-4.8); Albumin/Globulin Ratio 2.1 (1.2-2.2); Alkaline Phosphatase 56 U/L (46-116); Anion Gap 11 (7-16); Aspartate Amino Transferase 15 U/L (0-34); BUN/Creatinine Ratio 10 Ratio (12-20); Bilirubin,Total 3.8 mg/dL (0.3-1.2); Blood Urea Nitrogen 15 mg/dL (9-23); Calcium 8.3 mg/dL (8.3-10.6); Calcium (Corrected) 8.7 mg/dL (8.5-10.1); Carbon Dioxide 23.9 mMol/L (20.0-31.0); Chloride 105 mMol/L (98-107); Creatinine (Component) 1.5 mg/dL (0.6-1.3); Estimated Creatinine Clearance 39.9 mL/min (>60); Globulin 1.7 gm/dL (2.3-3.5); Glucose 125 mg/dL (74-106); Magnesium 1.8 mg/dL (1.6-2.6); Osmolality,Calculated 281 (275-295); Potassium 3.5 mMol/L (3.4-5.1); Sodium 140 mMol/L (136-145); Total Protein 5.2 gm/dL (5.7-8.2); eGFR 51 See Note
[2025-10-12 07:52] LABS: Slide Review Platelets confirmed
--- NOTE | 2025-10-12 09:04 | PD.RESPRO ---
Documentation for date of: 10/12/25 Subjective Subjective Interval history: No Overnight events. Labs reviewed and patient examined at the bedside. Continue on Albumin, Bumex 2mg po bid, Midodrine 10mg po tid. This morning, patient still had +2 pitting edema on his bilateral lower extremities Patient did not receive IV bumex yesterday. Ordered IV bumex 2mg x1. Patient's Cr improving from 1.6 to 1.5 Recommend discharging patient on PO bumex and Spirlactone. Exam Vital Signs Temp Pulse Resp BP Pulse Ox O2 Del Method O2 Flow Rate 97.8 F 70 16 113/68 93 L Room Air 0 10/12/25 04:00 10/12/25 05:28 10/12/25 04:00 10/12/25 05:28 10/12/25 04:00 10/12/25 04:00 10/10/25 15:07 Narrative Exam General: No acute distress, well nourished, AAO x3 Eye: PERRL, EOMI, normal conjunctiva, no scleral icterus HENT: hearing intact to conversation at normal volume, moist oral mucosa, Ecchymosis below right ear and lower chin. Left IJ central line noted. Neck: Supple, non-tender, no JVD, no lymphadenopathy Lungs: Non-labored respirations, symmetric chest rise, Clear to auscultate bilaterally, No wheezing, rhonchi, crackles Heart: Peripheral pulses intact bilaterally, Regular Rate and Rhythm. Abdomen: Soft, non-tender, non-distended, no palpable masses Musculoskeletal: 2+ pitting edema on Bilateral LE extending to his thigh and +1 pitting edema on Bilateral UE. Skin: Skin is warm, dry, no rashes or lesions. Ecchymosis on bilateral hands and inner thighs. Psychiatric: Cooperative, appropriate mood and affect, Awake and alert, not agitated Neuro: Cranial nerves II-XII grossly intact. Sensations intact to light touch. Objective Labs 10/12/25 06:14 10/12/25 06:14 Labs: Laboratory Results - last 24 hr 10/08/25 10/12/25 13:17 06:14 WBC 2.5 L RBC 2.47 L Hgb 7.1 L Hct 22.8 L MCV 92 MCH 28.7 MCHC 31.1 RDW Std Deviation 52.2 H Plt Count 23 L* D Neut % (Auto) 63 Lymph % (Auto) 14 [place] % (Auto) 13 H Eos % (Auto) 6 Baso % (Auto) 1 Neut # (Auto) 1.6 L Lymph # (Auto) 0.3 L [place] # (Auto) 0.3 Eos # (Auto) 0.2 Baso # (Auto) 0.0 Immature Gran # (Auto) 0.07 H Absolute Nucleated RBC 0.00 Immature Gran % 3 H Nucleated RBC % 0 Sodium 140 Potassium 3.5 Chloride 105 Carbon Dioxide 23.9 Anion Gap 11 BUN 15 Creatinine 1.5 H Estim Creat Clear Calc 39.9 L eGFR 51 L BUN/Creatinine Ratio 10 L Glucose 125 H Calculated Osmolality 281 Calcium 8.3 Corrected Calcium 8.7 Magnesium 1.8 Total Bilirubin 3.8 H AST 15 ALT 9 L Alkaline Phosphatase 56 Total Protein 5.2 L Albumin 3.5 Globulin 1.7 L Albumin/Globulin Ratio 2.1 Misc Test Result Platelets confirmed Crossmatch See Detail Blood Bank Comment FFP Ready Quality Measures Quality Measures none Advance care planning discussed with:: patient and other Assessment & Plan Assessment Current Active Medications: Generic Name Dose Route Start Last Admin Trade Name Freq PRN Reason Stop Dose Admin Ceftriaxone Sodium/Dextrose 1 gm in 50 mls @ 100 mls/hr 10/08/25 16:15 10/11/25 09:05 Rocephin/D5w 1gm Iv Premix IV 10/15/25 16:14 100 mls/hr QDAY LATRICE Administration Octreotide Acetate 1,000 mcg/ 102 mls @ 5.1 mls/hr 10/09/25 07:30 10/11/25 22:32 Sodium Chloride IV 10/12/25 12:00 50 mcg/hr .Q20H LATRICE 5.1 mls/hr Protocol Administration 50 MCG/HR Albumin Human 25 gm in 100 mls @ 100 mls/hr 10/11/25 14:00 10/12/25 05:28 Albuminex 25% Ivpb IV 10/14/25 13:59 100 mls/hr TID LATRICE Administration Lactulose 30 gm 10/11/25 12:00 10/12/25 05:27 Lactulose Syrup 20 Gm/30 Ml Udc PO 11/10/25 11:59 Not Given QID LATRICE Protocol Magnesium Oxide 400 mg 10/12/25 09:00 Magnesium Oxide 400 Mg Tablet PO 11/11/25 08:59 QDAY LATRICE Midodrine 10 mg 10/08/25 22:00 10/12/25 05:28 Midodrine 5 Mg Tablet PO 11/07/25 21:59 10 mg TID LATRICE Administration Pantoprazole Sodium 40 mg 10/11/25 11:45 10/11/25 21:20 Pantoprazole Inj 40 Mg Vial IVP 11/10/25 11:44 40 mg BID LATRICE Administration Rifaximin 550 mg 10/08/25 21:00 10/11/25 21:21 Rifaximin 550 Mg Tablet PO 10/15/25 20:59 550 mg BID LATRICE Administration Plan Mr. Isaac is a 64-year-old male with past medical history of decompensated cirrhosis status post TIPS following [facility] and Dr. Koch, esophageal varices, hypertensive portal gastropathy, pancytopenia, paroxysmal atrial fibrillation, hyperlipidemia,Diastolic heart failure, EF 50 to 55% 10/2025 and remote history of alcohol use who presented to [facility] emergency department on 10/2025 for 2 to 3 days of worsening shortness of breath and dizziness, patient found to have severely low hemoglobin of 3.8 and was admitted for further GI bleed workup. Cardiology consulted for troponin elevation and fluid overload status. #Fluid overload status, anasarca #Acute decompensated heart failure and cirrhosis #Heart failure with preserved ejection fraction, EF 50 to 55% #Diastolic heart failure #Elevated RVSP 61 mmHg Patient presented with some symptoms of shortness of breath, on physical exam patient generalized anasarca, bilateral upper and lower extremity swelling noted. Patient on Bumex 2 mg p.o. twice daily and spironolactone 25 mg p.o. daily at home, reports compliance. Patient seen at [facility] for liver transplant evaluation however as age is greater than 65 patient was transition from the active list. Transthoracic echocardiogram 10/08/2025: 1. Left ventricle size is normal and systolic function is normal. Estimated ejection fraction is 50-55%. grade 1 diastolic function. 2. Right ventricle chamber size is mildly enlarged and systolic function is normal. Estimated RVSP is 61 mmHg. Moderate to severe HTN. 3. Flattening of the ventricular septum in mid to late systole consistent with right ventricular pressure overload. 4. Mild Aortic stenosis and trace aortic regurgitation. 5. There is mild mitral valve stenosis and mild regurgitation. 6. There is mild tricuspid valve regurgitation. 7. The left atrium is mildly enlarged. The right atrium is normal. 8. Dilated IVC with estimated RA pressure 15 mmHg. Recommendations: -Patient had significantly dilated IVC with estimated RA pressure 15 mm, significant RVSP 61 this is secondary to patient's fluid overload status -Patient needs IV diuresis, we recommend Bumex 2 mg IV twice daily, continue midodrine -Recommend discharging patient on PO bumex and Spirlactone. -Strict intake and output, daily weight, fluid restriction 1500 cc, low-sodium diet. -Goal hospitalization -3 to 5 L for diuresis. #Atrial fibrillation, rate controlled Patient has history of atrial fibrillation, not on anticoagulation because of advanced cirrhosis and frequent GI bleed history. Patient noted to have left atrium enlargement on echo. [id number] Score: 2 points, HAS BLED score 4 points - Telemetry monitoring #NSTEMI type II, demand ischemia Patient denies any chest pain, EKG on presentation shows no acute ST-T changes Troponin trend. 0.120-> 0.146 -> 0.209 -> 0.178 Lipid panel 10/09/2025 triglyceride 53, cholesterol 88, HDL 16, LDL 61 cholesterol/HDL ratio 5.5 TSH 04/25/2025 0.81 Hemoglobin A1c 08/15/2024 less than 4.2 ASCVD risk score 9.9%, moderate to high intensity statin recommended Recommendations: - Monitor for chest pain - Consider high intensity statin, atorvastatin 40 mg at bedtime for risk factor modification - Patient will need ischemia workup outpatient, recent echocardiogram was negative for any wall motion abnormalities. - Will schedule patient outpatient for stress test and possible cardiac catheterization. #Acute decompensated cirrhosis #Upper GI variceal bleed #Hepatic encephalopathy, by history #Hyperbilirubinemia #Coagulopathy #Leukopenia #Severe Thrombocytopenia #CKD stage III #CHEL on CKD, improving Management per primary team Assessment and plan discussed with my attending physician Dr. Douglas (PGY-1) - Internal medicine resident Attending Provider Attestation/Addendum I have personally seen and examined the patient separately on the above date of service and discussed the plan of care with the resident. I reviewed the resident Dr. Oumou Douglas consultation progress note and agree with the resident findings and plan in the note above and have also edited the documentation to reflect my findings and plan. Charanjit Reyez M.D. Interventional Cardiology
[2025-10-12] MEDS: cefTRIAXone/D5w 1gm IV premix 1 GM/50 ML BAG IV (09:50)
[2025-10-12] MEDS: MAGNESIUM OXIDE 400 MG TABLET PO (09:51)
--- NOTE | 2025-10-12 09:52 | PD.RESPRO ---
Documentation for date of: 10/12/25 Exam Vital Signs Temp Pulse Resp BP Pulse Ox O2 Del Method O2 Flow Rate 97.8 F 70 16 113/68 93 L Room Air 0 10/12/25 04:00 10/12/25 05:28 10/12/25 04:00 10/12/25 05:28 10/12/25 04:00 10/12/25 04:00 10/10/25 15:07 Objective Labs 10/12/25 06:14 10/12/25 06:14 Labs: Laboratory Results - last 24 hr 10/08/25 10/12/25 13:17 06:14 WBC 2.5 L RBC 2.47 L Hgb 7.1 L Hct 22.8 L MCV 92 MCH 28.7 MCHC 31.1 RDW Std Deviation 52.2 H Plt Count 23 L* D Neut % (Auto) 63 Lymph % (Auto) 14 [place] % (Auto) 13 H Eos % (Auto) 6 Baso % (Auto) 1 Neut # (Auto) 1.6 L Lymph # (Auto) 0.3 L [place] # (Auto) 0.3 Eos # (Auto) 0.2 Baso # (Auto) 0.0 Immature Gran # (Auto) 0.07 H Absolute Nucleated RBC 0.00 Immature Gran % 3 H Nucleated RBC % 0 Sodium 140 Potassium 3.5 Chloride 105 Carbon Dioxide 23.9 Anion Gap 11 BUN 15 Creatinine 1.5 H Estim Creat Clear Calc 39.9 L eGFR 51 L BUN/Creatinine Ratio 10 L Glucose 125 H Calculated Osmolality 281 Calcium 8.3 Corrected Calcium 8.7 Magnesium 1.8 Total Bilirubin 3.8 H AST 15 ALT 9 L Alkaline Phosphatase 56 Total Protein 5.2 L Albumin 3.5 Globulin 1.7 L Albumin/Globulin Ratio 2.1 Misc Test Result Platelets confirmed Crossmatch See Detail Blood Bank Comment FFP Ready Quality Measures Quality Measures none Assessment & Plan Assessment Current Active Medications: Generic Name Dose Route Start Last Admin Trade Name Freq PRN Reason Stop Dose Admin Ceftriaxone Sodium/Dextrose 1 gm in 50 mls @ 100 mls/hr 10/08/25 16:15 10/12/25 09:50 Rocephin/D5w 1gm Iv Premix IV 10/15/25 16:14 100 mls/hr QDAY LATRICE Administration Octreotide Acetate 1,000 mcg/ 102 mls @ 5.1 mls/hr 10/09/25 07:30 10/11/25 22:32 Sodium Chloride IV 10/12/25 12:00 50 mcg/hr .Q20H LATRICE 5.1 mls/hr Protocol Administration 50 MCG/HR Albumin Human 25 gm in 100 mls @ 100 mls/hr 10/11/25 14:00 10/12/25 05:28 Albuminex 25% Ivpb IV 10/14/25 13:59 100 mls/hr TID LATRICE Administration Lactulose 30 gm 10/11/25 12:00 10/12/25 05:27 Lactulose Syrup 20 Gm/30 Ml Udc PO 11/10/25 11:59 Not Given QID LATRICE Protocol Magnesium Oxide 400 mg 10/12/25 09:00 10/12/25 09:51 Magnesium Oxide 400 Mg Tablet PO 11/11/25 08:59 400 mg QDAY LATRICE Administration Midodrine 10 mg 10/08/25 22:00 10/12/25 05:28 Midodrine 5 Mg Tablet PO 11/07/25 21:59 10 mg TID LATRICE Administration Pantoprazole Sodium 40 mg 10/11/25 11:45 10/12/25 09:51 Pantoprazole Inj 40 Mg Vial IVP 11/10/25 11:44 40 mg BID LATRICE Administration Rifaximin 550 mg 10/08/25 21:00 10/12/25 09:51 Rifaximin 550 Mg Tablet PO 10/15/25 20:59 550 mg BID LATRICE Administration
[2025-10-12] MEDS: BUMETANIDE 0.5 MG TABLET 2 MG PO (10:33)
--- NOTE | 2025-10-12 11:49 | PD.IMPROG ---
Documentation for date of: 10/12/25 Subjective Subjective Interval history: Hemoglobin hematocrit 7.1 and 22.8 okay to discharge patient home to be followed by me as an outpatient Exam Vital Signs Temp Pulse Resp BP Pulse Ox O2 Del Method O2 Flow Rate 97.8 F 68 18 109/61 97 Room Air 0 10/12/25 08:00 10/12/25 10:33 10/12/25 08:00 10/12/25 10:33 10/12/25 08:00 10/12/25 08:00 10/10/25 15:07 Objective Labs 10/12/25 06:14 10/12/25 06:14 Labs: Laboratory Results - last 24 hr 10/08/25 10/12/25 10/12/25 13:17 06:14 09:46 WBC 2.5 L RBC 2.47 L Hgb 7.1 L Hct 22.8 L MCV 92 MCH 28.7 MCHC 31.1 RDW Std Deviation 52.2 H Plt Count 23 L* D Neut % (Auto) 63 Lymph % (Auto) 14 Gaines % (Auto) 13 H Eos % (Auto) 6 Baso % (Auto) 1 Neut # (Auto) 1.6 L Lymph # (Auto) 0.3 L Gaines # (Auto) 0.3 Eos # (Auto) 0.2 Baso # (Auto) 0.0 Immature Gran # (Auto) 0.07 H Absolute Nucleated RBC 0.00 Immature Gran % 3 H Nucleated RBC % 0 Sodium 140 Potassium 3.5 Chloride 105 Carbon Dioxide 23.9 Anion Gap 11 BUN 15 Creatinine 1.5 H Estim Creat Clear Calc 39.9 L eGFR 51 L BUN/Creatinine Ratio 10 L Glucose 125 H Calculated Osmolality 281 Calcium 8.3 Corrected Calcium 8.7 Magnesium 1.8 Total Bilirubin 3.8 H AST 15 ALT 9 L Alkaline Phosphatase 56 Total Protein 5.2 L Albumin 3.5 Globulin 1.7 L Albumin/Globulin Ratio 2.1 Misc Test Result Platelets confirmed Blood Type AB Positive Antibody Screen NEGATIVE Crossmatch See Detail See Detail Blood Bank Wristband ID Yes Blood Bank Comment FFP Ready Impressions Impression: Upper GI bleed secondary to mucosal oozing of blood requiring octreotide infusion Hemoglobin hematocrit relatively stable Okay to discharge patient Assessment & Plan Time Spent With Patient Time: Total time spent is greater than 50% in coordination of care (as documented) at patient's floor/unit and/or counseling patient:
--- NOTE | 2025-10-12 16:15 | ESDS_ITS ---
<Statement entered by Philip Maria MD - 10/12/25 16:19> I saw and examined patient personally and supervised PGY 1 resident, Dr. Caraballo with formulating a discharge plan. I agree with the documentation as listed below. Plan of care discussed with Attending Dr. Mario Maria MD PGY 2 Disclaimer: This note was dictated by speech recognition. Minor errors in director of dementia operations may be present due to voice recognition software. Planned Discharge Date 10/12/25 DS: Providers Provider Date of admission: 10/08/25 13:49 Primary care physician: Arlette Koch MD Admitting Provider: Darren Martin DO Attending Provider on Admission: Darren Martin DO Consults: 10/08/25 12:03 Consult to Gastroenterology Stat Comment: Consulting Provider: Arlette Koch 10/08/25 13:36 Consult to Cardiology Stat Comment: Consulting Provider: Charanjit Reyez Attending Provider on DC: Marques Caraballo DO Discharging Provider: Marques Caraballo DO DS: Diagnosis Problem List Completed Was Problem List Reviewed/Reconciled?: Yes Hospital Course Status at Discharge Cognitive/behavioral status at discharge: A 63 year old male with significant past medical history of atrial fibrillation not on anticoagulation, alcoholic liver cirrhosis s/p TIPS, end-stage liver disease, GI bleeds, ascites, hyperlipidemia, s/p umbilical hernia surgery recurrent hospitalizations for GI bleed and hepatic encephalopathy presented to the ED on 10/08/2025 for evaluation of recent lightheadedness, difficulty breathing, and imbalance while ambulating. The patient has been getting blood transfusions monthly, and although he and his providers have tried to stretch it out to every other month, he has developed the aforementioned symptoms in consequence. At arrival, VSS BP 101/40, HR 80, RR 18, T97.8, O2 100% in RA. Labs showed WBC 3.1, Hgb 3.8, PT 17, INR 1.7, APTT 35, NA 127, K+ 3.2, BUN 29, CR 1.9, glucose 107, trops 0.120, BNP 92,. UA negative. UDS positive for fentanyl. CXR showed subsegmental atelectasis left base, no lobar pneumonia, normal heart size. EKG showed atrial fibrillation with VPC. Patient was admitted for acute GI blood loss anemia, requiring inpatient transfusions. He received bolus of LR with improvement in BP, 2 units of PRBC which beena Hgb to 5.1, followed by 2 additional units, and his Hgb was 7.3 AM labs. EGD showed grade 1 varices in the lower third of the esophagus. Diffuse erythematous stomach mucosa with stigmata of recent bleeding characteristic of gastritis. Normal duodenum. In the light tab gastric bleeding, patient started on octreotide infusion for 5 days total beginning on 10/08 and going on until his discharge on 10/12. by 10/10 Hgb 6.3, patient was given another unit of pRBC, 1u of Plt and FFP. Post transfusion H&H 7.5 and 23.1. CR 1.8, and home diuretics were held in the setting of hypotension and kidney injury. On the very last day, kidney function as reflected in improving creatinine levels, allowed for safe administration of Bumex 2 mg in the morning, and a second same dose given as IV before discharge. Patient was noted to be in decompensation of previously stable cirrhosis, MELD Na score 30: 52.6% risk of mortality in the next 3 months and Maddrey's score 36.7 indicating poor prognosis. Patient was given albumin IV 25 g 3 times daily for 5 days and ceft riaxone 1 g for SBP prophylaxis. Also continued on home rifaximin and lactulose, titrated to 2-3 bowel movements daily. For history of paroxysmal atrial fibrillation, cardiology was consulted who recommended resuming diuretic therapy in the light of TTE normal LV size and function. EF 50 to 55%. Grade 1 diastolic dysfx. Mildly enlarged RV. Mild tricuspid and mitral valve regurg. IVC dilated. RA 15mm and RVSP 61. At the time of discharge, patient is medically stable and deemed safe to return to his/her previous state of living. #Admission diagnoses: #Acute blood loss anemia #Esophageal varices, history of #CHEL ISO CKD #Hepatorenal syndrome #CKD stage III #Decompensated liver cirrhosis s/p TIPS #Secondary to chronic alcohol abuse #History of hepatic encephalopathy #Hyperbilirubinemia #Coagulopathy #Leukopenia #Thrombocytopenia #History of paroxysmal atrial fibrillation #NSTEMI type I versus type II #Discharge instructions: - We have increased your dose of midodrine to 10 mg three times a day. - We have started you on potassium tablets - Continue the rest of your medications as before. - Follow up with GI within 2 weeks of discharge - Follow up with your primary care physician within 1 week of discharge. If you do not have a primary care physician, please follow up with the [facility] Residents clinic ([phone]) ? If you experience any new, worsening or persistent symptoms either call your primary doctor, or dial 911 or present to the emergency department. This case was discussed with my attending physician, Dr. Martin, and senior resident, Dr Maria. Even though this this note was carefully revised there may still be minor errors in director of dementia operations due to voice recognition software. Marques Caraballo DO PGY I Time Spent with Patient Time attestation: Total time spent providing and/or coordinating discharge services: More than 50% of the patient's total hospital stay Time spent: Greater than 30 minutes Exam Vital Signs Temp Pulse Resp BP Pulse Ox O2 Del Method O2 Flow Rate 97.0 F 73 14 122/65 100 Room Air 0 10/12/25 13:02 10/12/25 13:44 10/12/25 13:02 10/12/25 13:44 10/12/25 13:02 10/12/25 12:00 10/12/25 13:02 Narrative Exam General: Alert and oriented x3, No apparent distress. Skin: Intact, Warm, no rashes. crusting and stigmata bleeding on Right forarm. HEENT: Normocephalic, Atraumatic. Normal neck range of motion, Supple. Trachea midline. Respiratory: Lungs are clear to auscultation. Breath sounds are equal bilaterally with good, symmetric chest expansion. Cardiovascular: RRR, normal S1, S2, No murmurs. Distal pulses 2+ Abdomen: Abdomen non-distended, without erythema, or lesions. Normotensive bowel sounds x4. Percussion tympanic. Palpation soft, nontender in all four quadrants. No organomagely. Absent rigidity, guarding, or rebound. present umbilical hernia. Musculoskeletal/Extremities: No erythema, swelling, tenderness of any joints. No edema of BLE. DP pulses +2/3 b/l. Full active ROM of all four extremities. 3+ left lower extremity and 2+ right lower extremity pitting edema. Neurologic: NEURO: Oriented x3, cranial nerves II to XII grossly intact. Muscle strength 5/5 on UE and LE b/l, Moves extremities x4. Sensation intact to gross touch along C6-T1 and L2-S1 dermatomes. No focal neurologic deficits noted Psych: Thoughts linear and responses appropriate. Discharge Plan Plan Patient Disposition: HOME (Self Care) Patient condition on transfer: Stable Care Plan Goals: - We have increased your dose of midodrine to 10 mg three times a day. - We have started you on potassium tablets - Continue the rest of your medications as before. - Follow up with GI within 2 weeks of discharge - Follow up with your primary care physician within 1 week of discharge. If you do not have a primary care physician, please follow up with the [facility] Residents clinic ([phone]) ? If you experience any new, worsening or persistent symptoms either call your primary doctor, or dial 911 or present to the emergency department. Prescriptions/Referrals Prescriptions/Med Rec: New magnesium oxide 400 mg (241.3 mg magnesium) Tablet 400 mg PO QDAY 30 Days Qty: 30 0RF midodrine 10 mg tablet 10 mg PO TID 30 Days Qty: 90 0RF potassium chloride 10 mEq capsule, extended release 10 meq PO QDAY 30 Days Qty: 30 0RF Continued bumetanide 1 mg Tablet 2 mg PO BID 30 Days Qty: 120 0RF pantoprazole 40 mg Tablet,Delayed Release (Dr/Ec) 40 mg PO BID Xifaxan 550 mg Tablet 550 mg PO BID lactulose 10 gram/15 mL solution 15 ml PO BID spironolactone 25 mg Tablet 25 mg PO DAILY Discontinued midodrine 5 mg tablet 5 mg PO DAILY Referrals: Arlette Koch MD [Primary Care Provider, Gastroenterology] Outpatient Orders (i.e. Home Health, Labs, Imaging): Potassium (Routine) Location: None Selected Ordered By: Philip Maria Patient/Caregiver Discharge Instructions Discharge Activity: activity as tolerated Education Materials: Esophageal Varices Print Language: Z[place]ian Stand Alone Forms: Pam Award Info., Patient Portal Info Letter Discharge Order Discharge Orders: Discharge (Routine); Ordered 10/12/25 Ordered By: Philip Maria Quality Discharge Quality Measures none (patient coagulopathic and thrombocytopenic; anticoagulants contra- indicated) Attestestation Attestation I have discussed and was present for the essential components of the discharge history, physical examination, diagnosis, and discharge treatment plan with the resident. I agree with the patient's discharge care as documented by the resident and amended herein by me. Mike Martin DO. The patient understood all discharge instructions, all questions were answered satisfactorily. The patient was instructed to return to the Emergency Department is symptoms worsened or persisted. Although this document has been carefully reviewed, there may still be some phonetic and other typographical errors. These errors are purely grammatical due to imperfections in the software program and should not be construed in any way to compromise the substance of the patient's medical care during this visit.
[2025-10-12] MEDS: BUMETANIDE INJ 0.25 MG/ML VIAL 4 ML 2 MG IVP (16:29)
== END 2025-10-12 17:02 | disposition home or self-care (01) | DRG 432 ==
LOC: SERX 13:53 → SERHOLD 14:29 → S2NX 17:09
PROVIDERS: Registered Nurse General Practice; Admitting Provider Student in an Organized Health Care Education/Training Program; Emergency Provider Family Medicine; PCP Specialist; Visit Provider Student in an Organized Health Care Education/Training Program
PROC: 0DJ08ZZ Inspection of Upper Intestinal Tract, Via Natural or Artificial Opening Endoscopic (ICD-10-PCS; CPT 43239; principal; 2025-10-09 14:30)
DX: K70.30 Alcoholic cirrhosis of liver without ascites (principal); I21.4 Non-ST elevation (NSTEMI) myocardial infarction; I85.11 Secondary esophageal varices with bleeding; K76.7 Hepatorenal syndrome; D62 Acute posthemorrhagic anemia; K92.2 Gastrointestinal hemorrhage, unspecified; N17.9 Acute kidney failure, unspecified; I50.30 Unspecified diastolic (congestive) heart failure; I13.0 Hypertensive heart and chronic kidney disease with heart failure and stage 1 through stage 4 chronic kidney disease, or unspecified chronic kidney disease; K76.6 Portal hypertension; D68.4 Acquired coagulation factor deficiency; D61.818 Other pancytopenia; K72.10 Chronic hepatic failure without coma; I48.0 Paroxysmal atrial fibrillation; I35.0 Nonrheumatic aortic (valve) stenosis; N18.30 Chronic kidney disease, stage 3 unspecified; F10.10 Alcohol abuse, uncomplicated; Z88.6 Allergy status to analgesic agent; K31.89 Other diseases of stomach and duodenum; I27.20 Pulmonary hypertension, unspecified; S40.811A Abrasion of right upper arm, initial encounter; W01.0XXA Fall on same level from slipping, tripping and stumbling without subsequent striking against object, initial encounter; Z79.899 Other long term (current) drug therapy
CPT/HCPCS: 36415; 71045; 80053; 80061; 80307; 81001; 83615; 83735; 83880; 84484; 85014; 85018; 85025; 85610; 85730; 86850; 86900; 86901; 86923; 86927; 86965; 93005; 93306; 96365; 96375; 99284; A4649; J0696; J1200; J2250; J2354; J2470; J3010; J3475; J3480; J3490; J7050; J7999; P9016; P9035; P9045; P9047; P9060; A9270

== ENCOUNTER → 2025-10-21 | Outpatient (CLI) | payer MEDICARE, MEDICAID, SELFPAY ==
[2025-10-21 15:15] LABS: Basophils # (Auto) 0.0 Thou/mm3 (0.0-0.2); Basophils % (Auto) 1 % (0-2.5); Eosinophils # (Auto) 0.2 Thou/mm3 (0.0-0.5); Eosinophils % (Auto) 13 % (0-10); Hematocrit 29.1 % (41.0-53.0); Hemoglobin 9.4 g/dL (13.5-16.0); Immature Granulocytes Auto 0.01 Thou/mm3 (0.00-0.00); Lymphocytes # (Auto) 0.3 Thou/mm3 (1.0-4.8); Lymphocytes % (Auto) 17 % (10-50); Mean Corpuscular HGB Conc 32.3 g/dl (31.0-37.0); Mean Corpuscular Hemoglobin 30.2 pg (25.0-35.0); Mean Corpuscular Volume 94 fL (80-100); Monocytes # (Auto) 0.2 Thou/mm3 (0.0-0.8); Monocytes % (Auto) 10 % (0-12); Neutrophils # (Auto) 1.0 Thou/mm3 (1.8-7.7); Neutrophils % (Auto) 59 % (37-80); Nucleated Red Blood Cell # 0.00 Thou/mm3 (0.00-0.00); Nucleated Red Blood Cell % 0 /100 WBC (0); RDW Standard Deviation 70.6 fL (35.1-43.9); Red Blood Count 3.11 Miln/mm3 (4.50-5.90); White Blood Count 1.8 Thou/mm3 (3.8-10.6)
[2025-10-21 15:37] LABS: Alanine Aminotransferase 10 U/L (10-49); Albumin, Serum 3.6 gm/dL (3.4-4.8); Albumin/Globulin Ratio 1.6 (1.2-2.2); Alkaline Phosphatase 108 U/L (46-116); Anion Gap 13 (7-16); Aspartate Amino Transferase 27 U/L (0-34); BUN/Creatinine Ratio 8 Ratio (12-20); Bilirubin,Total 7.3 mg/dL (0.3-1.2); Blood Urea Nitrogen 9 mg/dL (9-23); Calcium 7.9 mg/dL (8.3-10.6); Calcium (Corrected) 8.2 mg/dL (8.5-10.1); Carbon Dioxide 27.7 mMol/L (20.0-31.0); Chloride 98 mMol/L (98-107); Creatinine (Component) 1.2 mg/dL (0.6-1.3); Globulin 2.2 gm/dL (2.3-3.5); Glucose 119 mg/dL (74-106); Osmolality,Calculated 277 (275-295); Sodium 139 mMol/L (136-145); Total Protein 5.8 gm/dL (5.7-8.2); eGFR > 60 See Note
[2025-10-21 15:40] LABS: Potassium 2.4 mMol/L (3.4-5.1)
[2025-10-21 15:42] LABS: Platelet Count 37 Thou/mm3 (140-440)
[2025-10-21 15:47] LABS: Slide Review Platelets confirmed
== END | disposition home or self-care (01) ==
LOC: COPL 14:14
PROVIDERS: PCP Specialist; Referring Provider Specialist; Visit Provider Specialist
DX: K20.90 Esophagitis, unspecified without bleeding (principal); K76.6 Portal hypertension
CPT/HCPCS: 36415; 80053; 85025